=== PATIENT | female | born 1980 | race Caucasian/White ===

== ENCOUNTER 2021-04-08 19:36 | Emergency (ER) | payer OTHER, SELFPAY ==
--- NOTE | ~2021-04-08 | CT_ITS ---
EXAMINATION: CT abdomen pelvis wo con DATE: 04/08/2021 21:16 INDICATION: Left lower quadrant abdominal pain. TECHNIQUE: Computed tomography (CT) of the abdomen and pelvis was performed without intravenous contr ast. Automated exposure control and iterative reconstruction technique were employed. The dose-length product was 787.86 mGy-cm. COMPARISON: CT abdomen and pelvis 05/22/2016 FINDINGS: The visualized portions of the lung bases demonstrate minimal atelectasis with no pleural e ffusion. The heart size is normal. No pericardial effusion. The liver is normal. The changes of francisco cystectomy. The spleen, pancreas, adrenal glands, and kidneys are normal. There are no dilated loops of bowel. The appendix is normal. There are no pathologically enlarged lymph nodes. There is trace pe lvic ascites. There is a tampon in vagina. There is mild thoracolumbar spondylosis. IMPRESSION: 1. No etiology for the patient's symptoms. Reviewed, dictated and finalized at location A.
[2021-04-08 19:50] VITALS: BP 125/79; PULSE 62; RESP 20; TEMP 36.2; O2SAT 100
[2021-04-08] MEDS: DICYCLOMINE HCL 10 MG CAPSULE 20 MG PO (20:16)
[2021-04-08 20:29] LABS: Appearance Urine Clear (Clear); Basophils Absolute Auto 0.06 K/mm3 (0.00-0.10); Basophils Percent Auto 0.8 % (0.0-1.0); Bilirubin Urine Negative (Negative); Color Urine Yellow (Yellow); Eosinophils Absolute Auto 0.26 K/mm3 (0.02-0.50); Eosinophils Percent Auto 3.3 % (1.0-6.0); Glucose Urine UA Negative (Negative); Hematocrit 37.9 % (35.0-49.0); Hemoglobin 12.8 g/dL (12.0-15.0); Immature Granulocyte Absolute 0.02 K/mm3 (0.00-0.00); Immature Granulocyte Percent A 0.3 % (0.0-0.0); Ketones Urine Negative (Negative); Leukocyte Esterase Ur Negative (Negative); Lymphocytes Percent Auto 37.5 % (18.0-42.0); Mean Corpuscular HGB Conc 33.8 g/dL (32.0-36.0); Mean Corpuscular Volume 94.8 fL (78.0-102.0); Mean Platelet Volume 9.8 fl (9.2-11.8); Monocytes Absolute Auto 0.65 K/mm3 (0.10-0.90); Monocytes Percent Auto 8.1 % (2.0-11.0); Nitrate Urine Negative (Negative); Platelet Count Result 203 K/mm3 (150-420); Protein Urine Negative (Negative); Red Cell Distribution Width 11.9 % (11.6-14.4); Specific Grav Ur 1.015 (1.010-1.020); Urobilinogen Urine 0.2 mg/dL (0.2-1.0); pH Urine 6.5 (5.0-8.0)
[2021-04-08 20:32] LABS: Add Urine Microscopic? YES; Bacteria Urine None seen /hpf; Blood Urine Trace-Intact (Negative); RBC Urine None seen /hpf (0-2); Squamous Epithelial Cell Urine Few /hpf (Few); WBC Urine None seen /hpf (0-3)
[2021-04-08 20:40] LABS: Alanine Aminotransferase 28 U/L (14-59); Albumin Level 3.8 g/dL (3.4-5.0); Alkaline Phosphatase 67 U/L (46-116); Anion Gap 8 mmol/L (8-16); Aspartate Amino Transferase 16 U/L (15-37); Bilirubin,Total 0.3 mg/dL (0.00-1.00); Blood Urea Nitrogen 12 mg/dL (7-18); Calcium 8.8 mg/dL (8.5-10.1); Carbon Dioxide 29 mmol/L (21-32); Chloride 104 mmol/L (98-108); Estimated CRCL calculation 79 ml/min; Estimated Glomerular Filt Rate > 60; Glucose 109 mg/dL (70-99); Lipase 281 U/L (73-393); Osmolality Calculated 292 mOsm/kg (285-295); Potassium 3.4 mmol/L (3.5-5.1); Sodium 141 mmol/L (136-145); Total Protein 7.1 g/dL (6.4-8.2)
--- NOTE | 2021-04-08 20:57 | ED.ABDPAIN ---
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 This started last pm, and kept her awake in pain most of the night. Over the counter medications tried at home have not made her feel any better. Nothing has decreased the pain. MD elicited complaint: abdominal pain Pertinent past history: other (doxycycline use) Onset (ago): hour(s) Pain Consistency: constant Location: LLQ Severity: moderate Quality: stabbing Relieving factors: nothing Associated symptoms: denies other symptoms Treatments prior to arrival: NSAIDs Related Data Home Medications Medication Instructions Recorded Confirmed No Home Medications 04/08/21 04/08/21 Allergies Allergy/AdvReac Type Severity Reaction Status Date / Time No Known Allergies Allergy Unverified 05/24/20 15:12 Review of Systems Constitutional: Constitutional: Reports no additional constitutional complaints Eyes: Eyes: Reports no additional eye complaints ENT: Reports system reviewed and no additional complaints, except as documented Cardiovascular: Cardiovascular: Reports no additional cardiovascular complaints Respiratory: Respiratory: Reports no additional respiratory complaints Gastrointestinal: Gastrointestinal: Reports no additional gastrointestinal complaints Genitourinary: Genitourinary: Reports no additional female genitourinary complaints Musculoskeletal: Musculoskeletal: Reports no additional musculoskeletal complaints Integumentary/Breasts: Skin/Breast: Reports system reviewed and no additional complaints, except as docu Neurologic: Reports system reviewed and no additional complaints, except as documented Psychiatric: Psychiatric: Reports no additional psychiatric complaints Endocrine: Endocrine: Reports no additional endocrine complaints Hematologic/Lymphatic: Hematologic/Lymphatic: Reports no additional hematologic/lymphatic complaints Allergic/Immunologic: Allergic/Immunologic: Reports no additional allergic/immunologic complaints [facility] Past Medical History Medical History Decreased libido Diarrhea Dysthymic disorder Epigastric pain Epigastric pain Recurrent pancreatitis Surgical History Surgical History (Updated 04/08/21 @ 21:56 by Conor Espana MD) History of cholecystectomy Family History Family History (Updated 04/08/21 @ 22:01 by Conor Espana MD) Mother Hypertension Irritable bowel syndrome Father Malignant neoplasm of prostate Grandparent Family history of pancreatic cancer Family history of malignant neoplasm of bone Family history of macular degeneration Diabetes mellitus Social History Social History Smoking status: Former smoker Smoking end date: 12/01/10 Alcohol intake: current Exam Const: Orientation/consciousness: patient oriented x3 HENMT: Head: normal to inspection Ears: external ears normal and TM's normal bilaterally General nose exam: Normal external nose present and Normal nares present Mouth: Yes Normal oral and palatal mucosa present Throat: posterior oropharynx normal Eyes: Conjunctivae: conjunctivae normal Neck: Neck: normal visual inspection Chest: Chest palpation & inspection: normal inspection of the chest Resp: Effort & Inspection: normal respiratory effort Auscultation: clear to auscultation bilaterally Cardio: Rate: regular rate Rhythm: regular rhythm GI: GI Palp: Yes Soft to palpation (nontender, hyperactive bowel sounds) Back/Spine/Pelvis: Back: no CVA tenderness Skin: General skin exam: normal color Other: She has what appears to be a healing
[2021-04-08 20:58] LABS: Pregnancy On Board Control Positive; Urine Pregnancy Test Negative
[2021-04-08] MEDS: KETOROLAC (*BKC) 60 MG/2 ML VIAL IM (21:33)
[2021-04-08 21:47] VITALS: BP 126/74; PULSE 78; RESP 18; O2SAT 100
== END 2021-04-08 21:49 | disposition home or self-care (01) ==
PROVIDERS: Emergency Provider Emergency Medicine; PCP Internal Medicine
DX: R10.13 Epigastric pain (principal); R10.32 Left lower quadrant pain
CPT/HCPCS: 36415; 74176; 80053; 81001; 81025; 83690; 85025; 87086; 87088; 96372; 99283; 99284; A9270; J1885

== ENCOUNTER 2021-04-10 14:28 | Outpatient (CLI) | payer OTHER, SELFPAY ==
--- NOTE | ~2021-04-10 | US_ITS ---
EXAMINATION: US pelvic complete w TV EXAM DATE: 04/10/2021 16:00 INDICATION: Pelvic pain. TECHNIQUE: Pelvic transabdominal and transvaginal sonogram was performed. There are multiple graysca le and Doppler images available for interpretation. Correlation is made to CT 04/08/2021. FINDINGS: Uterus measures 7.6 x 4.5 x 5.5 cm, and is morphologically normal. Endometrial stripe radhika sures 4 mm, within normal limits. There is no free pelvic fluid. Right adnexa: The ovary measures 1.5 x 2.8 x 2.8 cm and is morphologically normal. Ovarian vascular f low confirmed. Left adnexa: The ovary measures 3.2 x 1.9 x 1.8 cm and is morphologically normal. Ovarian vascular fl ow confirmed. IMPRESSION: 1. Unremarkable pelvic ultrasound exam. Reviewed, dictated and finalized at location A.
== END 2021-04-10 14:29 | disposition home or self-care (01) ==
LOC: CHSIMG 14:29
PROVIDERS: PCP Internal Medicine; Visit Provider Nurse Practitioner Family
DX: R10.2 Pelvic and perineal pain (principal); R10.9 Unspecified abdominal pain
CPT/HCPCS: 76830; 76856

== ENCOUNTER 2021-04-17 12:31 | Outpatient (CLI) | payer OTHER, SELFPAY ==
--- NOTE | ~2021-04-17 | MM_ITS ---
EXAMINATION: MM screening jesus BI w marlyn HISTORY: Screening TECHNIQUE: Craniocaudal and mediolateral oblique 3-D tomosynthesis images were obtained and synthetic 2-D images were generated. CAD analysis was submitted and interpreted. COMPARISON: No prior mammogram is available for comparison at this institution. BREAST PARENCHYMAL COMPOSITION: The breasts are heterogenously dense, which may obscure small masses. FINDINGS: There is a focal asymmetry with possible architectural distortion in the upper outer quadra nt of the right breast. There are no suspicious masses, calcifications or architectural distortion in the left breast to suggest malignancy. IMPRESSION: 1. Focal right breast asymmetry with possible architectural distortion, upper outer quadrant. 2. Additional mammographic views and possible breast ultrasound are recommended. BI-RADS Category 0: Incomplete: Needs additional imaging evaluation. Reviewed, dictated and finalized at location A. IMPRESSION: 1. Focal right breast asymmetry with possible architectural distortion, upper o uter quadrant. 2. Additional mammographic views and possible breast ultrasound are recommended . BI-RADS Category 0: Incomplete: Needs additional imaging evaluation.
== END 2021-04-17 12:32 | disposition home or self-care (01) ==
LOC: CHSIMG 12:32
PROVIDERS: PCP Internal Medicine; Visit Provider Nurse Practitioner Family
DX: Z12.31 Encounter for screening mammogram for malignant neoplasm of breast (principal)
CPT/HCPCS: 77063; 77067

== ENCOUNTER 2021-04-20 13:42 | Outpatient (CLI) | payer OTHER, SELFPAY ==
--- NOTE | ~2021-04-20 | US_ITS ---
EXAMINATION: US thyroid EXAM DATE: 04/20/2021 14:09 INDICATION: Enlarged thyroid gland elevated glucose abdominal pain. TECHNIQUE: Multiple grayscale and Doppler images of the thyroid were obtained (by a technologist who performed the scan) and subsequently reviewed. Individual nodules and recommendations may be reporte d in accordance with TI-RADS system as designated by the 2017 ACR White Paper TI-RADS committee. The re is no prior study for comparison. FINDINGS: Right thyroid lobe measures 6.3 x 1.6 x 2.3 cm, the left measuring 5.5 x 1.3 x 1.6 cm. Mildly heterog eneous thyroid echogenicity with numerous small thyroid nodules. Largest right thyroid lobe nodule measures 1.1 x 1.5 x 1.3 cm , mixed cystic and solid (1 point), hyp oechoic (2 points), wider than tall, smooth well defined margin, artifactual echogenic regions along the edges of cystic components, category TR3 for this nodule. This category typically biopsied if th ey reach 2.5 cm. Multiple left thyroid lobe nodules measuring up to 10 x 6 x 9 mm which is mixed solid and cystic, als o category TR 3. There is another smaller left thyroid lobe 5 x 6 x 6 mm, solid (2 points), hypoechoi c (2 points), wider than tall, smooth well defined margin, containing macrocalcification(s) causing a coustic shadowing (1 point), category TR4 for this nodule. IMPRESSION: Multinodular goiter; recommend one-year follow-up thyroid ultrasound. Reviewed, dictated and finalized at location A. IMPRESSION: Multinodular goiter; recommend one-year follow-up thyroid ultrasoun d.
[2021-04-20 14:58] LABS: Alanine Aminotransferase 27 U/L (14-59); Albumin Level 3.8 g/dL (3.4-5.0); Alkaline Phosphatase 60 U/L (46-116); Anion Gap 5 mmol/L (8-16); Aspartate Amino Transferase 22 U/L (15-37); Bilirubin,Total 0.3 mg/dL (0.00-1.00); Blood Urea Nitrogen 11 mg/dL (7-18); Calcium 9.5 mg/dL (8.5-10.1); Carbon Dioxide 32 mmol/L (21-32); Chloride 103 mmol/L (98-108); Estimated Glomerular Filt Rate > 60; Free T3 2.82 pg/mL (2.18-3.98); Free T4 Free Thyroxine 0.88 ng/dL (0.76-1.46); Glucose 87 mg/dL (70-99); Osmolality Calculated 288 mOsm/kg (285-295); Potassium 4.3 mmol/L (3.5-5.1); Sodium 140 mmol/L (136-145); Thyroid Stimulating Hormone 1.46 uIU/mL (0.36-3.74); Total Protein 6.9 g/dL (6.4-8.2)
[2021-04-22 20:14] LABS: T4 Thyroxine 5.6 mcg/dL (5.1-11.9)
[2021-04-26 08:04] LABS: Total Triiodothyronine (T3) 93 ng/dL (76-181)
== END 2021-04-20 13:43 | disposition home or self-care (01) ==
LOC: CHSIMG 13:43
PROVIDERS: PCP Internal Medicine; Visit Provider Nurse Practitioner Family
DX: R92.8 Other abnormal and inconclusive findings on diagnostic imaging of breast (principal); E04.9 Nontoxic goiter, unspecified; R73.9 Hyperglycemia, unspecified; R10.9 Unspecified abdominal pain
CPT/HCPCS: 36415; 76536; 80053; 84436; 84439; 84443; 84480; 84481

== ENCOUNTER 2021-04-24 09:33 | Outpatient (CLI) | payer OTHER, SELFPAY ==
--- NOTE | ~2021-04-24 | MMUS_ITS ---
EXAMINATION: MM diagnostic mammo unilat RT, US breast RT limited HISTORY: Focal right breast mammographic asymmetry with possible architectural distortion described i n upper outer quadrant of right breast on 04/17/2021 screening mammogram TECHNIQUE: Additional 3-D tomosynthesis images of right breast were performed and synthetic 2-D image s were generated. CAD analysis was submitted and interpreted. High resolution upper outer quadrant ri ght breast ultrasound was performed. COMPARISON: 04/17/2021 bilateral digital screening mammogram FINDINGS: MAMMOGRAPHIC FINDINGS: No suspicious mass or architectural distortion is evident on these supplemental views. ULTRASOUND: No suspicious mass or architectural distortion is evident in the upper outer quadrant of the right br east. IMPRESSION: 1. No mammographic evidence of malignancy 2. Routine mammographic screening is recommended. BI-RADS Category 1: Negative Reviewed, dictated and finalized at location A. IMPRESSION: 1. No mammographic evidence of malignancy 2. Routine mammographic screening is recommended. BI-RADS Category 1: Negative
== END 2021-04-24 09:34 | disposition home or self-care (01) ==
PROVIDERS: PCP Internal Medicine; Visit Provider Internal Medicine
DX: R92.8 Other abnormal and inconclusive findings on diagnostic imaging of breast (principal)
CPT/HCPCS: 76642; 77065

== ENCOUNTER 2022-03-05 08:40 | Outpatient (CLI) | payer OTHER, SELFPAY ==
--- NOTE | ~2022-03-05 | CT_ITS ---
EXAMINATION: CT soft tissue neck w con DATE: 03/05/2022 09:34 INDICATION: Right neck swelling. TECHNIQUE: Computed tomography (CT) of the neck was performed with 75 mL Omnipaque-350 intravenous co ntrast. Automated exposure control and iterative reconstruction technique were employed. The dose-rajani gth product was 377.42 mGy-cm. COMPARISON: None FINDINGS: There are nodules in the thyroid measuring up to 5 mm, likely not clinically significant. T here is a skin marker at the right neck. There is no abnormal mass in this area. There are no patholo gically enlarged lymph nodes. The cervical carotid arteries are normal. There is mild cervical spondy losis. IMPRESSION: 1. No specific etiology for the patient's symptoms. Reviewed, dictated and finalized at location A.
== END 2022-03-05 08:41 | disposition home or self-care (01) ==
LOC: CHSIMG 08:42
PROVIDERS: PCP Internal Medicine; Visit Provider Nurse Practitioner Family
DX: R22.1 Localized swelling, mass and lump, neck (principal)
CPT/HCPCS: 70491; Q9967

== ENCOUNTER 2022-04-11 12:41 | Outpatient (CLI) | payer OTHER, SELFPAY ==
--- NOTE | ~2022-04-11 | US_ITS ---
EXAMINATION: US thyroid DATE: 04/11/2022 13:12 INDICATION: Multinodular goiter. TECHNIQUE: Multiple ultrasound images of the thyroid were obtained. COMPARISON: Thyroid ultrasound 04/20/2021 FINDINGS: The right thyroid lobe measures 6.1 x 2.0 x 2.0 cm. The left thyroid lobe measures 6.0 x 2.0 x 1.6 c m. In the right thyroid lobe, there is a 7 mm predominantly solid, hypoechoic, zzkmx-mlzh-[id number] nodul e with smooth margin without echogenic foci (TI-RADS TR4). In the left thyroid lobe, there is a 9 mm mixed cystic and solid, hypoechoic, vqfbz-yhqy-xnbz nodule with smooth margin without echogenic foci (TR3). There are multiple subcentimeter nodules in the thyroid. IMPRESSION: 1. Small thyroid nodules, likely not clinically significant. No follow-up is needed. Reviewed, dictated and finalized at location A. IMPRESSION: 1. Small thyroid nodules, likely not clinically significant. No follow-up is ne eded.
[2022-04-11 13:27] LABS: Free T4 Free Thyroxine 0.86 ng/dL (0.76-1.46); Thyroid Stimulating Hormone 1.83 uIU/mL (0.36-3.74)
== END 2022-04-11 12:42 | disposition home or self-care (01) ==
LOC: CHSIMG 12:44
PROVIDERS: PCP Internal Medicine
DX: E04.2 Nontoxic multinodular goiter (principal)
CPT/HCPCS: 36415; 76536; 84439; 84443; 84481

== ENCOUNTER 2023-01-30 07:36 | Outpatient (CLI) | payer OTHER, SELFPAY | END 2023-01-30 07:37 | disposition home or self-care (01) | LOC: CHSLAB 07:38 | PROVIDERS: PCP Internal Medicine; Visit Provider Nurse Practitioner Family | DX: R19.7 Diarrhea, unspecified (principal) | CPT/HCPCS: 87045; 87177; 87209; 87427 ==

== ENCOUNTER 2023-02-01 08:57 | Outpatient (CLI) | payer OTHER, SELFPAY ==
[2023-02-04 12:28] LABS: Rotavirus Stool Not Detected
== END 2023-02-01 08:58 | disposition home or self-care (01) ==
PROVIDERS: PCP Internal Medicine; Visit Provider Nurse Practitioner Family
DX: R10.0 Acute abdomen (principal)
CPT/HCPCS: 87324; 87425

== ENCOUNTER 2023-07-08 14:20 | Outpatient (CLI) | payer OTHER, SELFPAY ==
[2023-07-08 14:32] LABS: Basophils Absolute Auto 0.06 K/mm3 (0.00-0.10); Basophils Percent Auto 0.9 % (0.0-1.0); Eosinophils Absolute Auto 0.17 K/mm3 (0.02-0.50); Eosinophils Percent Auto 2.6 % (1.0-6.0); Hematocrit 38.1 % (35.0-49.0); Immature Granulocyte Absolute 0.02 K/mm3 (0.00-0.00); Immature Granulocyte Percent A 0.3 % (0.0-0.0); Lymphocytes Absolute Auto 2.12 K/mm3 (1.10-4.50); Lymphocytes Percent Auto 32.6 % (18.0-42.0); Mean Corpuscular HGB Conc 34.1 g/dL (32.0-36.0); Mean Corpuscular Hemoglobin 32.5 pg (27.0-31.0); Mean Corpuscular Volume 95.3 fL (78.0-102.0); Mean Platelet Volume 9.6 fl (9.2-11.8); Monocytes Absolute Auto 0.59 K/mm3 (0.10-0.90); Monocytes Percent Auto 9.1 % (2.0-11.0); Neutrophils Absolute Auto 3.6 K/mm3 (1.7-7.2); Neutrophils Percent Auto 54.5 % (50.0-70.0); Platelet Count Result 203 K/mm3 (150-420); Red Cell Distribution Width 11.8 % (11.6-14.4); White Blood Count 6.5 K/mm3 (4.8-10.8)
[2023-07-08 15:13] LABS: Alanine Aminotransferase 28 U/L (14-59); Alkaline Phosphatase 55 U/L (46-116); Anion Gap 6 mmol/L (8-16); Aspartate Amino Transferase 16 U/L (15-37); Bilirubin,Total 0.2 mg/dL (0.00-1.00); Blood Urea Nitrogen 12 mg/dL (7-18); Calcium 9.2 mg/dL (8.5-10.1); Carbon Dioxide 30 mmol/L (21-32); Chloride 105 mmol/L (98-108); Cholesterol 133 mg/dL (0-200); Estimated Glomerular Filt Rate > 60; Glucose 94 mg/dL (70-99); HDL Direct 51 mg/dL (40-60); LDL Cholesterol Calculated 68 mg/dL (<130); Lipase 81 U/L (16-77); Osmolality Calculated 291 mOsm/kg (285-295); Potassium 4.2 mmol/L (3.5-5.1); Sodium 141 mmol/L (136-145); Total Protein 6.9 g/dL (6.4-8.2); Triglycerides 71 mg/dL (0-150)
[2023-07-08 15:15] LABS: CRP < 0.5 mg/dL (0.0-0.9)
[2023-07-08 15:25] LABS: Thyroid Stimulating Hormone Reflex 1.04 u/IU/mL (0.36-3.74)
== END 2023-07-08 14:21 | disposition home or self-care (01) ==
LOC: CHSLAB 14:22
PROVIDERS: PCP Family Medicine; Visit Provider Family Medicine
DX: R10.9 Unspecified abdominal pain (principal); R10.13 Epigastric pain; E11.9 Type 2 diabetes mellitus without complications
CPT/HCPCS: 36415; 80053; 80061; 83690; 84443; 85025; 86140

== ENCOUNTER 2023-07-11 09:28 | Outpatient (CLI) | payer OTHER, SELFPAY ==
--- NOTE | ~2023-07-11 | XR_ITS ---
Cervical Spine: AP, lateral, open-mouth views Clinical History: Pain Findings: There is mild reversal of the normal cervical lordosis. The vertebral bodies and posterior elements appear intact. The intervertebral disc spaces are well maintained. Pre-vertebral soft tiss ues are unremarkable. Impression: Mild reversal of the normal cervical lordosis, otherwise unremarkable exam. Reviewed, dictated and finalized at location . Impression: Mild reversal of the normal cervical lordosis, otherwise unremarkable exam.
--- NOTE | ~2023-07-11 | XR_ITS ---
Thoracic spine: Clinical Indication: Back pain AP and lateral views were performed. No fracture is seen. There is normal alignment of the vertebrae. The intervertebral disc spaces appe ar normal. Paravertebral soft tissues appear normal. Impression: No significant abnormalities noted. Reviewed, dictated and finalized at [facility]. Impression: No significant abnormalities noted.
== END 2023-07-11 09:29 | disposition home or self-care (01) ==
LOC: CHSIMG 09:30
PROVIDERS: PCP Family Medicine; Visit Provider Family Medicine
DX: R10.13 Epigastric pain (principal); M54.12 Radiculopathy, cervical region; M53.82 Other specified dorsopathies, cervical region
CPT/HCPCS: 72040; 72072

== ENCOUNTER 2023-07-21 09:00 | Outpatient (RCR) | payer OTHER, SELFPAY ==
--- NOTE | 2023-07-21 10:03 | OPREHPOC ---
Outpatient Therapy Plan of Care This is a Multidisciplinary Plan of Care that may contain components documented by all disciplines (PT, OT, and ST.) PT Problem 1 PT Problem #1 Knowledge Deficit PT Goal 1 Goal Patient to demonstrate independence with HEP Target Visit 6 PT Problem 2 PT Problem #2 Pain PT Goal 1 Goal Patient to demontrate highest pain at 2/10 Target Visit 12 PT Problem 3 PT Problem #3 Impaired Strength PT Goal 1 Goal Patient to demonstrate UE strength to 5/5 to return to house hold tasks at PLOF Target Visit 12 PT Problem 4 PT Problem #4 Impaired Functional Mobil PT Goal 1 Goal 1. Patient to demonstrate ability to look over B shoulder to 70 deg with no reports of pain to return to driving at PLOF 2. Patient to score 10% improvement on Neck Disability Index
--- NOTE | 2023-07-21 10:03 | PTOPEVAL1 ---
Assessment and note entered by Alexandra Forbes DPT Evaluation Information Assessment Status Evaluation Diagnosis neck pain, radiculopathy Onset 07/08/23 Subjective Information Patient reports neck pain with tingling down B arms to fingers. Patient does not recall injury but reports it has been going on ~ 2 weeks. Patient reports neck pain is at base of skull. Patient reports difficulty with driving, using her phone and sitting for long periods of time. Priro to onset of pain patient was able to do above activities with no increase in pain. Reported Pain Level Pain Score 7: Self Report Assessment PT Clinical Summary Patient is a 43 year old female who presents to PT with neck pain with radicular pain to B UE. Patient demonstrates decreased B cervical mobility , impaired posture and positive B median and ulnar ULNT tests impairing her ability to drive, look at her phone and sit for long periods of time. Patient would benefit from skilled PT to address impairments and return to PLOF. Plan of Care Interventions Electrical Stimulation,Hot Pack/Cold Pack,Manual Therapy,Mechanical Traction,Neuro Re-education, Patient/Caregiver Educati,Therapeutic Activities, Therapeutic Exercise PT Services Indicated Yes Treatment Frequency and 3x weekly for 12 visits Duration These treatments will address the objective and functional deficits as defined above. The patient will be advanced safely and appropriately in order for the patient to progress towards his/her prior level of function. Additional exercises will be introduced and as well as a comprehensive home exercise program upon discharge, if needed, ?to ensure carryover of functional gains achieved in the clinic. This treatment plan has been reviewed and agreement upon by the patient.
--- NOTE | 2023-08-07 09:36 | OPREHPOC ---
Outpatient Therapy Plan of Care This is a Multidisciplinary Plan of Care that may contain components documented by all disciplines (PT, OT, and ST.) PT Problem 1 PT Problem #1 Knowledge Deficit PT Goal 1 Goal Patient to demonstrate independence with HEP Target Visit 6 Progress Met PT Problem 2 PT Problem #2 Pain PT Goal 1 Goal Patient to demontrate highest pain at 2/10 Target Visit 12 Progress Partially Met PT Problem 3 PT Problem #3 Impaired Strength PT Goal 1 Goal Patient to demonstrate UE strength to 5/5 to return to house hold tasks at PLOF Target Visit 12 Progress Partially Met PT Problem 4 PT Problem #4 Impaired Functional Mobil PT Goal 1 Goal 1. Patient to demonstrate ability to look over B shoulder to 70 deg with no reports of pain to return to driving at PLOF 2. Patient to score 10% improvement on Neck Disability Index Progress Partially Met
--- NOTE | 2023-08-07 09:37 | PTOPPROG ---
Assessment and note entered by JT File, PT Evaluation Information Assessment Status Progress Diagnosis neck pain, radiculopathy Onset 07/08/23 Subjective Information patient reports she feels alright today. she reports she continues to have symptoms in the bilateral UE's, but reports feeling improved since starting therapy. she reports the pain still radiates into the hands of the bilateral UE's with cervical rotation and sidebending (especially to the L). Assessment PT Clinical Summary mrs. khan presents to skilled PT for her 8th skilled therapy visit. she presents today with lower pain at rest, but increased symptoms still with cervical rotation/looking over shoulders. she continues to present with signs and symptoms indicating a cervical radiculopathy from the lower cervical spine. she would benefit from continued skilled PT to continue to progress her objective/ functional performance and return to prior level functional activities and quality of life. she has met HEP goals, and is making progress towards all other goals thus far in skilled PT. Plan of Care Interventions Electrical Stimulation,Hot Pack/Cold Pack,Manual Therapy,Mechanical Traction,Neuro Re-education, Patient/Caregiver Educati,Therapeutic Activities, Therapeutic Exercise PT Services Indicated Yes Treatment Frequency and continue skilled PT 2x weekly for 4 more visits. Duration These treatments will address the objective and functional deficits as defined above. The patient will be advanced safely and appropriately in order for the patient to progress towards his/her prior level of function. Additional exercises will be introduced and as well as a comprehensive home exercise program upon discharge, if needed, ?to ensure carryover of functional gains achieved in the clinic. This treatment plan has been reviewed and agreement upon by the patient.
== END 2023-08-21 18:26 | disposition home or self-care (01) ==
LOC: CHSPT 09:00
PROVIDERS: PCP Family Medicine; Visit Provider Family Medicine
DX: M54.12 Radiculopathy, cervical region (principal)
CPT/HCPCS: 97012; 97014; 97110; 97140; 97161; G0283

== ENCOUNTER 2023-12-04 09:01 | Outpatient (CLI) | payer OTHER, SELFPAY ==
--- NOTE | ~2023-12-04 | MR_ITS ---
MRI of the cervical spine Clinical History: Ectopic the Technique: Axial T2-weighted and gradient images, and sagittal T1-weighted, T2-weighted, and STIR sherry ges were acquired. Findings: There is no fracture or subluxation of the cervical spine. Vertebral bodies maintain normal height and alignment. No suspicious bone marrow signal abnormality seen. At C2-C3, there is no disc bulge or herniation. No spinal canal stenosis, cord compression, or neural foraminal narrowing. At C3-C4, there is no significant disc bulge or herniation. No spinal canal stenosis, cord compressio n or neural foraminal narrowing. At C4-C5, there is no disc bulge or herniation. No spinal canal stenosis, cord compression or neural foraminal narrowing. At C5-C6, there is central disc protrusion/disc osteophyte complex. There is mild canal stenosis with out reinaldo cord compression. There is probable bilateral neural foraminal narrowing, right worse than left. At C6-C7, there is minimal disc osteophyte complex. No spinal canal stenosis or cord compression. Maureen ral foramina are preserved. No abnormal signal seen in the spinal cord. Paravertebral soft tissues are unremarkable. Impression: Mild degenerative spondylosis, as above. Reviewed, dictated and finalized at location . 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
== END 2023-12-04 09:02 | disposition home or self-care (01) ==
LOC: CHSIMG 09:03
PROVIDERS: PCP Family Medicine; Visit Provider Family Medicine
DX: M54.12 Radiculopathy, cervical region (principal); M43.02 Spondylolysis, cervical region
CPT/HCPCS: 72141

== ENCOUNTER 2024-01-13 11:37 | Outpatient (CLI) | payer OTHER, SELFPAY ==
[2024-01-13 12:01] LABS: Basophils Absolute Auto 0.02 K/mm3 (0.00-0.10); Basophils Percent Auto 0.3 % (0.0-1.0); Eosinophils Absolute Auto 0.18 K/mm3 (0.02-0.50); Eosinophils Percent Auto 2.6 % (1.0-6.0); Hematocrit 40.2 % (35.0-49.0); Hemoglobin 13.5 g/dL (12.0-15.0); Immature Granulocyte Absolute 0.02 K/mm3 (0.00-0.00); Immature Granulocyte Percent A 0.3 % (0.0-0.0); Lymphocytes Percent Auto 37.1 % (18.0-42.0); Mean Corpuscular HGB Conc 33.6 g/dL (32.0-36.0); Mean Corpuscular Hemoglobin 30.8 pg (27.0-31.0); Mean Corpuscular Volume 91.6 fL (78.0-102.0); Mean Platelet Volume 9.6 fl (9.2-11.8); Monocytes Absolute Auto 0.63 K/mm3 (0.10-0.90); Neutrophils Absolute Auto 3.6 K/mm3 (1.7-7.2); Neutrophils Percent Auto 50.7 % (50.0-70.0); Platelet Count Result 210 K/mm3 (150-420); Red Blood Count 4.39 M/mm3 (4.20-5.40); Red Cell Distribution Width 12.4 % (11.6-14.4)
[2024-01-13 13:39] LABS: Alanine Aminotransferase 35 U/L (14-59); Albumin Level 3.7 g/dL (3.4-5.0); Alkaline Phosphatase 51 U/L (46-116); Anion Gap 10 mmol/L (8-16); Aspartate Amino Transferase 23 U/L (15-37); Bilirubin,Total 0.4 mg/dL (0.00-1.00); Blood Urea Nitrogen 10 mg/dL (7-18); Carbon Dioxide 28 mmol/L (21-32); Chloride 102 mmol/L (98-108); Estimated Glomerular Filt Rate > 60; Glucose 102 mg/dL (70-99); Lipase 115 U/L (16-77); Osmolality Calculated 289 mOsm/kg (285-295); Sodium 140 mmol/L (136-145); Total Protein 6.9 g/dL (6.4-8.2)
[2024-01-13 13:43] LABS: CRP < 0.5 mg/dL (0.0-0.9)
== END 2024-01-13 11:38 | disposition home or self-care (01) ==
LOC: CHSLAB 11:38
PROVIDERS: PCP Family Medicine; Visit Provider Family Medicine
DX: R10.9 Unspecified abdominal pain (principal); K85.90 Acute pancreatitis without necrosis or infection, unspecified
CPT/HCPCS: 36415; 80053; 83690; 85025; 86140

== ENCOUNTER 2024-02-26 09:52 | Outpatient (CLI) | payer OTHER, SELFPAY ==
--- NOTE | 2024-02-26 10:15 | PC.NURSE ---
Here for OP fluids and medications from Dr Driver office,
[2024-02-26 10:16] LABS: Basophils Absolute Auto 0.02 K/mm3 (0.00-0.10); Basophils Percent Auto 0.3 % (0.0-1.0); Eosinophils Absolute Auto 0.03 K/mm3 (0.02-0.50); Eosinophils Percent Auto 0.4 % (1.0-6.0); Hematocrit 45.2 % (35.0-49.0); Immature Granulocyte Absolute 0.02 K/mm3 (0.00-0.00); Immature Granulocyte Percent A 0.3 % (0.0-0.0); Lymphocytes Absolute Auto 0.73 K/mm3 (1.10-4.50); Lymphocytes Percent Auto 10.4 % (18.0-42.0); Mean Corpuscular HGB Conc 33.2 g/dL (32-36); Mean Corpuscular Hemoglobin 30.7 pg (27.0-31.0); Mean Corpuscular Volume 92.4 fL (78.0-102.0); Mean Platelet Volume 9.2 fl (9.2-11.8); Monocytes Absolute Auto 0.52 K/mm3 (0.10-0.90); Monocytes Percent Auto 7.4 % (2.0-11.0); Neutrophils Absolute Auto 5.71 K/mm3 (1.70-7.20); Neutrophils Percent Auto 81.2 % (50.0-70.0); Platelet Count Result 199 K/mm3 (150-420); Red Blood Count 4.89 M/mm3 (4.20-5.40)
[2024-02-26 10:29] VITALS: BMI 24.5
[2024-02-26 10:44] VITALS: BP 117/76; PULSE 82; RESP 18; TEMP 35.9; O2SAT 96
[2024-02-26 10:45] LABS: Alanine Aminotransferase 34 U/L (14-59); Albumin Level 4.2 g/dL (3.4-5.0); Alkaline Phosphatase 49 U/L (46-116); Anion Gap 9 mmol/L (4-12); Aspartate Amino Transferase 23 U/L (15-37); Bilirubin,Total 0.5 mg/dL (0.00-1.00); Blood Urea Nitrogen 14 mg/dL (7-18); CRP 3.4 mg/dL (0.0-0.9); Calcium 9.1 mg/dL (8.5-10.1); Carbon Dioxide 29 mmol/L (21-32); Chloride 102 mmol/L (98-108); Estimated CRCL calculation 88 ml/min; Estimated Glomerular Filt Rate > 60; Glucose 109 mg/dL (70-99); Lipase 28 U/L (16-77); Osmolality Calculated 291 mOsm/kg (285-295); Potassium 3.7 mmol/L (3.5-5.1); Sodium 140 mmol/L (136-145); Total Protein 7.4 g/dL (6.4-8.2)
[2024-02-26] MEDS: SODIUM CHLORIDE 0.9% IV 1,000 ML 999 ML IVPB (10:56)
[2024-02-26] MEDS: DICYCLOMINE HCL INJ 20 MG/2 ML VIAL IM (11:00)
[2024-02-26] MEDS: ONDANSETRON INJ 4 MG/2 ML VIAL IV PUSH (11:01)
--- NOTE | 2024-02-26 11:16 | PC.NURSE ---
tolerating infusion well, no vomiting since arrival
--- NOTE | 2024-02-26 12:15 | PC.NURSE ---
feeling a little better, discharged ambulatory, no n/v, tolerated ice chips while infusing ran
== END 2024-02-26 09:53 | disposition home or self-care (01) ==
PROVIDERS: PCP Family Medicine; Visit Provider Family Medicine
DX: R11.2 Nausea with vomiting, unspecified (principal); K85.90 Acute pancreatitis without necrosis or infection, unspecified; R10.9 Unspecified abdominal pain
CPT/HCPCS: 36415; 80053; 83690; 85025; 86140; 96360; 96361; 96372; 96374; J0500; J2405; J7030

== ENCOUNTER 2024-06-26 08:23 | Outpatient (CLI) | payer OTHER, SELFPAY ==
--- NOTE | ~2024-06-26 | MR_ITS ---
EXAMINATION: MR brain IAC wo con DATE: 06/26/2024 09:36 INDICATION: Migraine headache. Dizziness. TECHNIQUE: Magnetic resonance imaging (MRI) of the brain, brainstem, and internal auditory canals was performed without intravenous contrast. COMPARISON: Neck CT 03/05/2022 FINDINGS: There is no intracranial hemorrhage, acute infarction, or abnormal intracranial mass lesion . The ventricles are normal in size. Cavum septum callosum and vergae are noted. The paranasal sinuse s are clear. The orbits are normal. The internal auditory canals, inner ears, and tympanic cavities a re normal. The mastoid air cells are normal. IMPRESSION: 1. Normal brain. Reviewed, dictated and finalized at location E. IMPRESSION: 1. Normal brain.
== END 2024-06-26 08:24 | disposition home or self-care (01) ==
LOC: CHSIMG 08:24
PROVIDERS: PCP Family Medicine; Visit Provider Nurse Practitioner Family
DX: G89.29 Other chronic pain (principal); R51.9 Headache, unspecified
CPT/HCPCS: 70551

== ENCOUNTER 2024-08-09 09:35 | Observation (INO) | payer OTHER, SELFPAY ==
--- NOTE | ~2024-08-09 | CT_ITS ---
CT abdomen pelvis w con Ordering provider: Wilfredo Grier DO History: 44 years Female with . abdominal pain-RLQ X1DAY,H/O DIARRHEA-IBS,LMP CURRENT . Comparison: None. Technique: CT abdomen and pelvis with IV and without oral contrast. Automated exposure control and it erative reconstruction technique were employed. The dose-length product was 427.86 mGy-cm. Findings: VISUALIZED LOWER CHEST: Normal. UPPER ABDOMINAL ORGANS: Liver: Normal. Gallbladder: Status post cholecystectomy. Spleen: Normal. Stomach/duodenum: Normal. Pancreas: Slightly prominent pancreatic duct. Adrenals: Normal. Kidneys: Normal. PELVIC ORGANS: The bladder is underfilled. Follicles are seen in the right and left ovary. BOWEL AND MESENTERY: Colon: No evidence of diverticulitis. Normal appendix. Small Bowel: Normal. No obstruction. Peritoneum/mesentery: No free air or free fluid. No mesenteric lymphadenopathy. RETROPERITONEUM: Normal aorta. No retroperitoneal lymphadenopathy. MUSCULOSKELETAL: Superficial soft tissues: The superficial soft tissues are normal. Bones: Normal spine. IMPRESSION: 1. No acute abdominal process with no evidence of appendicitis, diverticulitis or intestinal obstruc tion. 2. Bilateral ovarian follicles with the largest on the right side measures 1.5 cm. Reviewed, dictated and finalized at location A. IMPRESSION: 1. No acute abdominal process with no evidence of appendicitis, diverticulitis or intestinal obstruction. 2. Bilateral ovarian follicles with the largest on the right side measures 1.5 cm.
[2024-08-09 09:38] VITALS: BP 140/88; PULSE 101; RESP 20; TEMP 36.5; O2SAT 100
--- NOTE | 2024-08-09 09:44 | ED.GENADULT ---
HPI - General Adult General Chief complaint: Abdominal Pain Stated complaint: abd pain History of Present Illness HPI narrative: Ronda is a 44M with PMH of chronic headaches, HANG, GERD that presented to the ED with abdominal pain. It started last night and is getting worse. It is a lower and right lower quadrant pain worse with movement and she has had minor nausea. No vomiting. She has had diarrhea but no worse than usual. Related Data Home Medications Medication Instructions Recorded Confirmed No Home Medications 08/09/24 08/09/24 Allergies Allergy/AdvReac Type Severity Reaction Status Date / Time prochlorperazine Allergy Mild twitching Verified 08/09/24 09:58 [From Compazine] Review of Systems Review of Systems: All systems reviewed & are unremarkable except as noted in HPI and below PMFSH Past Medical History Medical History Decreased libido Diarrhea Dysthymic disorder Epigastric pain Epigastric pain Recurrent pancreatitis Surgical History Surgical History History of cholecystectomy Family History Family History Mother Hypertension Irritable bowel syndrome Father Malignant neoplasm of prostate Grandparent Family history of pancreatic cancer Family history of malignant neoplasm of bone Family history of macular degeneration Diabetes mellitus Social History Social History (Updated 07/08/23 @ 13:31 by Shirley Pittman) Smoking status: Never smoker Smoking end date: 12/01/10 Alcohol intake: never Substance use: never Do You Feel Safe in your Home?: Yes Lack of Transportation: No Lack of Food: Never True Current Housing: I Have Housing Concerned About Future Housing: No Difficulty Paying Gas/Electric Bills: No Difficulty Paying for Meds: No Currently Unemployed: No Education: Bachelor's Degree Difficulty w/ Childcare or Family Care: No Spiritual care concerns: No Exam Const: General: cooperative, healthy appearing, comfortable, no acute distress, well developed, alert, awake and Physically active Orientation/consciousness: oriented to person, oriented to place and oriented to time HENMT: Head: normal to inspection, normocephalic and atraumatic Ears: hearing grossly normal bilaterally and external ears normal Face/Nose/Sinus: Normal external nose present Eyes: General: appearance normal, both eyes and all related structures Periorbital: periorbital findings normal Sclera: sclerae normal Pupils: Equal, round and reactive pupils present Neck: Neck: normal visual inspection Chest: Chest palpation & inspection: normal inspection of the chest Resp: Effort & Inspection: normal respiratory effort, able to speak in complete sentences and no respiratory distress Auscultation: clear to auscultation bilaterally Cardio: Jugular venous distension: no JVD Rate: regular rate Rhythm: regular rhythm GI: Inspection: normal to inspection GI Palp: Yes Soft to palpation Auscultation: normal bowel sounds Other: +TTP in the lower abdomen and RLQ. +Guarding and rebound tenderness. Skin: General skin exam: normal color and no rashes or lesions noted Neuro: General: oriented to person, oriented to place and oriented to time Cranial nerves: Yes Equal, round and reactive pupils present Extrem: General: normal to inspection Course Course Emergency Course: -ordered fluids, morphine and zofran Labs showed an elevated lipase but were otherwise normal. CT abdomen pelvis w con Ordering provider: Wilfredo Grier DO History: 44 years Female with . abdominal pain-RLQ X1DAY,H/O DIARRHEA-IBS,LMP CURRENT . Comparison: None. Technique: CT abdomen and pelvis with IV and without oral contrast. Automated exposure control and iterative reconstruction technique were employed. The dose-length product was
[2024-08-09 09:55] LABS: Basophils Absolute Auto 0.05 K/mm3 (0.00-0.10); Basophils Percent Auto 0.7 % (0.0-1.0); Eosinophils Absolute Auto 0.16 K/mm3 (0.02-0.50); Eosinophils Percent Auto 2.1 % (1.0-6.0); Hematocrit 40.3 % (35.0-49.0); Hemoglobin 13.7 g/dL (12.0-15.0); Immature Granulocyte Absolute 0.02 K/mm3 (0.00-0.00); Immature Granulocyte Percent A 0.3 % (0.0-0.0); Lymphocytes Absolute Auto 1.91 K/mm3 (1.10-4.50); Lymphocytes Percent Auto 25.1 % (18.0-42.0); Mean Corpuscular Hemoglobin 31.6 pg (27.0-31.0); Mean Corpuscular Volume 92.9 fL (78.0-102.0); Mean Platelet Volume 9.3 fl (9.2-11.8); Monocytes Absolute Auto 0.72 K/mm3 (0.10-0.90); Monocytes Percent Auto 9.5 % (2.0-11.0); Neutrophils Absolute Auto 4.74 K/mm3 (1.70-7.20); Neutrophils Percent Auto 62.3 % (50.0-70.0); Platelet Count Result 223 K/mm3 (150-420); Red Blood Count 4.34 M/mm3 (4.20-5.40); Red Cell Distribution Width 11.7 % (11.6-14.4); White Blood Count 7.6 K/mm3 (4.8-10.8)
[2024-08-09] MEDS: MORPHINE SULFATE (*CRX) 4 MG/ML INJ IV PUSH (10:08)
[2024-08-09] MEDS: ONDANSETRON INJ 4 MG/2 ML VIAL IV PUSH ×3 (10:08→23:08)
[2024-08-09] MEDS: LACTATED RINGERS 1,000 ML 999 ML IV CONT (10:09)
[2024-08-09 10:13] LABS: Pregnancy On Board Control Positive; Urine Pregnancy Test Negative
[2024-08-09 10:14] LABS: Appearance Urine Clear (Clear); Bilirubin Urine Negative (Negative); Blood Urine 4+ (Negative); Color Urine Yellow (Yellow); Glucose Urine UA Negative (Negative); Ketones Urine Negative (Negative); Nitrate Urine Negative (Negative); Protein Urine Negative (Negative); Specific Grav Ur 1.005 (1.010-1.020); pH Urine 6.5 (5.0-8.0)
[2024-08-09 10:15] LABS: Add Urine Microscopic? YES; Bacteria Urine Trace /hpf; Leukocyte Esterase Ur Negative LEU/UL (Negative); Squamous Epithelial Cell Urine Rare /hpf (Few); Urobilinogen Urine Normal mg/dL (0.2-1.0); WBC Urine None seen /hpf (0-3)
[2024-08-09 10:18] LABS: Prothrombin Time 10.7 Seconds (9.64-11.0)
--- NOTE | 2024-08-09 10:40 | PC.NURSE ---
Pt resting in stretcher. Call light with in reach.
[2024-08-09] MEDS: LACTATED RINGERS 1,000 ML 100 ML IV CONT (10:56)
[2024-08-09 10:59] LABS: Alanine Aminotransferase 14 U/L (14-59); Alkaline Phosphatase 50 U/L (46-116); Anion Gap 9 mmol/L (4-12); Aspartate Amino Transferase 16 U/L (15-37); Bilirubin,Total 0.8 mg/dL (0.00-1.00); Blood Urea Nitrogen 11 mg/dL (7-18); Carbon Dioxide 27 mmol/L (21-32); Chloride 102 mmol/L (98-108); Estimated CRCL calculation 73 ml/min; Estimated Glomerular Filt Rate > 60; Glucose 103 mg/dL (70-99); Lipase 217 U/L (16-77); Osmolality Calculated 285 mOsm/kg (285-295); Potassium 3.1 mmol/L (3.5-5.1); Sodium 138 mmol/L (136-145); Total Protein 7.2 g/dL (6.4-8.2)
[2024-08-09 11:00] LABS: Troponin I < 4.0 ng/L (0.00-60.4)
[2024-08-09 11:01] LABS: Lactic Acid Reflex 1.1 mmol/L (0.4-2.0)
[2024-08-09] MEDS: HYDROmorphone HCL INJ (*CRX) 2 MG/ML VIAL 0.5 MG IV PUSH (11:04)
[2024-08-09] MEDS: DICYCLOMINE HCL INJ 20 MG/2 ML VIAL IM (11:26)
--- NOTE | 2024-08-09 12:01 | PC.NURSE ---
Pt returned from CT. IV restarted. Gave her warm blanket.
--- NOTE | 2024-08-09 13:16 | PC.NURSE ---
Pt resting comfortably in stretcher. No needs at this time.
[2024-08-09 13:39] VITALS: BMI 25.9
--- NOTE | 2024-08-09 13:45 | ADMGEN ---
This patient, Ronda Nunez, was admitted to 2nd Floor Room 203-1. Patient/family oriented to hospital policies and general routines including ID bracelet, bed and alarms, visiting hours, pain management, procedures, bathroom and other care routines, personal items, smoking policy, room service/diet, and visiting hours. Information on how to activate the Rapid Response Team has been discussed. Patient/Family are encouraged to report perceived risks to care and to ask questions if they do not understand what they are told or what they should do.
[2024-08-09] MEDS: MORPHINE SULFATE (*CRX) 2 MG/ML INJ IV PUSH ×2 (15:14→21:33)
[2024-08-09 16:00] VITALS: BP 122/83; PULSE 68; RESP 18; TEMP 36.1; O2SAT 99
[2024-08-09 20:00] VITALS: PULSE 68; RESP 18; O2SAT 99
[2024-08-10] VITALS: BP 135/82; PULSE 98; RESP 17; TEMP 36.2; O2SAT 100
[2024-08-10] MEDS: ACETAMINOPHEN 325 MG TABLET 650 MG PO (04:49)
[2024-08-10 05:29] LABS: Basophils Absolute Auto 0.04 K/mm3 (0.00-0.10); Basophils Percent Auto 0.5 % (0.0-1.0); Eosinophils Absolute Auto 0.12 K/mm3 (0.02-0.50); Eosinophils Percent Auto 1.4 % (1.0-6.0); Hematocrit 37.9 % (35.0-49.0); Hemoglobin 12.8 g/dL (12.0-15.0); Immature Granulocyte Absolute 0.01 K/mm3 (0.00-0.00); Immature Granulocyte Percent A 0.1 % (0.0-0.0); Lymphocytes Absolute Auto 2.29 K/mm3 (1.10-4.50); Mean Corpuscular HGB Conc 33.8 g/dL (32-36); Mean Corpuscular Hemoglobin 31.2 pg (27.0-31.0); Mean Corpuscular Volume 92.4 fL (78.0-102.0); Mean Platelet Volume 9.5 fl (9.2-11.8); Monocytes Absolute Auto 0.64 K/mm3 (0.10-0.90); Monocytes Percent Auto 7.5 % (2.0-11.0); Neutrophils Absolute Auto 5.38 K/mm3 (1.70-7.20); Neutrophils Percent Auto 63.5 % (50.0-70.0); Platelet Count Result 210 K/mm3 (150-420); Red Cell Distribution Width 11.6 % (11.6-14.4); White Blood Count 8.5 K/mm3 (4.8-10.8)
[2024-08-10 05:44] LABS: Alanine Aminotransferase 46 U/L (14-59); Albumin Level 3.6 g/dL (3.4-5.0); Alkaline Phosphatase 58 U/L (46-116); Anion Gap 8 mmol/L (4-12); Aspartate Amino Transferase 35 U/L (15-37); Bilirubin,Total 0.7 mg/dL (0.00-1.00); Blood Urea Nitrogen 9 mg/dL (7-18); Calcium 8.8 mg/dL (8.5-10.1); Carbon Dioxide 29 mmol/L (21-32); Chloride 104 mmol/L (98-108); Estimated CRCL calculation 82 ml/min; Estimated Glomerular Filt Rate > 60; Glucose 89 mg/dL (70-99); Lipase 32 U/L (16-77); Osmolality Calculated 289 mOsm/kg (285-295); Potassium 3.8 mmol/L (3.5-5.1); Sodium 141 mmol/L (136-145); Total Protein 6.6 g/dL (6.4-8.2)
[2024-08-10 08:00] VITALS: BP 118/82; PULSE 76; RESP 18; TEMP 36.3; O2SAT 98
[2024-08-10] MEDS: ONDANSETRON INJ 4 MG/2 ML VIAL IV PUSH (10:45)
--- NOTE | 2024-08-10 11:11 | PM.SD2 ---
Same Day Admit/Disch: HPI History of Present Illness Chief complaint: PANCREATITIS OVARIAN CYST Narrative: Ronda Nunez is a 44 year old female PI narrative: This nice young woman comes in with complaints of moderately severe to severe sharp, stabbing abdominal pain, some in epigastric area, but more severe in LLQ. This started last pm, and kept her awake in pain most of the night. Over the counter medications tried at home have not made her feel any better. Nothing has decreased the pain. MD elicited complaint: abdominal pain PMFSH Past Medical History Medical History Decreased libido Diarrhea Dysthymic disorder Epigastric pain Epigastric pain Recurrent pancreatitis Surgical History Surgical History History of cholecystectomy Family History Family History Mother Hypertension Irritable bowel syndrome Father Malignant neoplasm of prostate Grandparent Family history of pancreatic cancer Family history of malignant neoplasm of bone Family history of macular degeneration Diabetes mellitus Social History Social History Smoking status: Never smoker Smoking end date: 12/01/10 Alcohol intake: never Substance use: never Do You Feel Safe in your Home?: Yes Lack of Transportation: No Lack of Food: Never True Current Housing: I Have Housing Concerned About Future Housing: No Difficulty Paying Gas/Electric Bills: No Difficulty Paying for Meds: No Currently Unemployed: No Education: Bachelor's Degree Difficulty w/ Childcare or Family Care: No Spiritual care concerns: No Same Day Admit/Disch: Med Pre-admit Medications Home Medications Medication Instructions Recorded Confirmed Type ibuprofen 800 mg tablet 800 mg PO TID PRN pain #20 tabs 08/10/24 Rx Review of Systems Review of Systems abdominal pain, nauese, All systems reviewed & are unremarkable except as noted in HPI and below Exam Const: General: cooperative, healthy appearing and comfortable HENMT: Head: normal to inspection Ears: hearing grossly normal bilaterally Face/Nose/Sinus: Normal external nose present and Normal nares present Face and sinus: normal facial exam Mouth: Yes Normal oral and palatal mucosa present, Yes lip normal, Yes tongue normal and Yes other Eyes: General: appearance normal, both eyes and all related structures Pupils: Equal, round and reactive pupils present Neck: Neck: normal visual inspection, full ROM and no lymphadenopathy Chest: Chest palpation & inspection: normal inspection of the chest Resp: Effort & Inspection: normal respiratory effort and able to speak in complete sentences Auscultation: clear to auscultation bilaterally GI: Inspection: normal to inspection GI Palp: Yes abdominal tenderness (minimal tenderness mostly resolved) Neuro: General: oriented to person, oriented to place, oriented to time, patient oriented x3 and gait normal Cognition (Neuro): normal cognition Speech: normal speech Gait exam (Neuro): Normal gait present Sensory Exam: normal sensation Extrem: General: normal to inspection, full ROM, capillary refill normal, normal exam except as noted and no pedal edema Right upper extremity: normal to inspection, full ROM and normal capillary refill Left upper extremity: normal to inspection, full ROM and normal capillary refill Psych: Mental Status: mental status grossly normal Speech and movement: Clear speech present Affect: normal affect Attitude: cooperative Thought process: Normal thought process present DS: Data Data Completed and Pending Labs on day of discharge: Labs from last 24 hours 08/10/24 05:10 WBC 8.5 RBC 4.10 L Hgb 12.8 Hct 37.9 MCV 92.4 MCH 31.2 H MCHC 33.8 RDW 11.6 Plt Count 210 MPV
--- NOTE | 2024-08-10 14:46 | PC.NURSE ---
1420claims she is not n/v at this time. 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 wants to go home and relax there. encouraged to follow up with primary and ob. dc to personal auto.
--- NOTE | 2024-08-12 09:17 | PC.NURSE ---
Discharge call back complete, to see OB provider tomorrow for continued pain from ovarian cyst, doing ok otherwise, no n/v
== END 2024-08-10 14:20 | disposition home or self-care (01) ==
LOC: CHSED 13:11 → CHS2ND 13:54
PROVIDERS: Nurse Practitioner Acute Care; Admitting Provider Internal Medicine; Emergency Provider Family Medicine; PCP Family Medicine; Visit Provider Internal Medicine
DX: K85.90 Acute pancreatitis without necrosis or infection, unspecified (principal); N83.202 Unspecified ovarian cyst, left side; N83.201 Unspecified ovarian cyst, right side
CPT/HCPCS: 36415; 74177; 80053; 81001; 81025; 83605; 83690; 84484; 85025; 85610; 96361; 96372; 96374; 96375; 96376; 99285; A9270; G0378; G0379; J0500; J1170; J2270; J2405; J7120; Q9967

== ENCOUNTER 2024-12-08 11:31 | Outpatient (CLI) | payer OTHER, SELFPAY ==
--- NOTE | ~2024-12-08 | US_ITS ---
EXAMINATION: US soft tissue head and neck DATE: 12/08/2024 12:43 INDICATION: Dysphasia TECHNIQUE: Multiple ultrasound images of the thyroid were obtained. COMPARISON: 04/11/2022 FINDINGS: The right thyroid lobe measures 5.5 x 2.3 x 1.6 cm. Multiple nodules are identified within the right lobe of the thyroid gland. The largest and most suspicious is described below: Within the upper pole of the right lobe of the thyroid gland is a 10 x 10 x 10 mm nodule: Composition - spongiform Echogenicity -hyperechoic or isoechoic (1) Shape - wider than tall Margin - smooth Echogenic foci - none. = TR1: benign, no FNA The left thyroid lobe measures 5.2 x 2.1 x 1.7 cm. Multiple nodules are identified within the left lobe of the thyroid gland. The largest and most suspicious is described below: Within the upper pole of the left lobe of the thyroid gland is a 14 x 12 x 10 mm nodule: Composition - spongiform Echogenicity -hyperechoic or isoechoic (1) Shape - wider than tall Margin - smooth Echogenic foci - none. = TR1: Benign, and no FNA Bulky calcified focus within the left lobe of the thyroid gland, without discrete nodular features me asuring 4.7 mm in greatest dimension. The isthmus measures 0.6cm in anterior to posterior dimension. There is otherwise normal echogenicity throughout the remainder of thyroid gland. Normal vascular flow is present. IMPRESSION: TR 1 nodules detected bilaterally for which no FNA and no follow-up is necessary. Reviewed, dictated and finalized at location A. USEMENT MACHINE MECHANIC IMPRESSION: TR 1 nodules detected bilaterally for which no FNA and no follow-up is necessar yKatlyn
[2024-12-08 12:18] LABS: Basophils Absolute Auto 0.07 K/mm3 (0.00-0.10); Basophils Percent Auto 0.9 % (0.0-1.0); Eosinophils Absolute Auto 0.11 K/mm3 (0.02-0.50); Eosinophils Percent Auto 1.5 % (1.0-6.0); Hematocrit 41.1 % (35.0-49.0); Hemoglobin 13.8 g/dL (12.0-15.0); Immature Granulocyte Absolute 0.02 K/mm3 (0.00-0.00); Immature Granulocyte Percent A 0.3 % (0.0-0.0); Lymphocytes Absolute Auto 1.98 K/mm3 (1.10-4.50); Lymphocytes Percent Auto 26.2 % (18.0-42.0); Mean Corpuscular HGB Conc 33.6 g/dL (32-36); Mean Corpuscular Hemoglobin 30.9 pg (27.0-31.0); Mean Corpuscular Volume 91.9 fL (78.0-102.0); Mean Platelet Volume 9.2 fl (9.2-11.8); Monocytes Percent Auto 9.3 % (2.0-11.0); Neutrophils Absolute Auto 4.68 K/mm3 (1.70-7.20); Neutrophils Percent Auto 61.8 % (50.0-70.0); Platelet Count Result 224 K/mm3 (150-420); Red Blood Count 4.47 M/mm3 (4.20-5.40); Red Cell Distribution Width 11.9 % (11.6-14.4); White Blood Count 7.6 K/mm3 (4.8-10.8)
[2024-12-08 12:48] LABS: Alanine Aminotransferase 25 U/L (14-59); Albumin Level 4.2 g/dL (3.4-5.0); Alkaline Phosphatase 61 U/L (46-116); Anion Gap 9 mmol/L (4-12); Aspartate Amino Transferase 13 U/L (15-37); Bilirubin,Total 0.4 mg/dL (0.00-1.00); Blood Urea Nitrogen 14 mg/dL (7-18); Calcium 9.6 mg/dL (8.5-10.1); Carbon Dioxide 26 mmol/L (21-32); Chloride 105 mmol/L (98-108); Estimated Glomerular Filt Rate > 60; Glucose 98 mg/dL (70-99); Osmolality Calculated 290 mOsm/kg (285-295); Potassium 4.6 mmol/L (3.5-5.1); Sodium 140 mmol/L (136-145); Total Protein 7.2 g/dL (6.4-8.2)
[2024-12-08 12:55] LABS: CRP < 0.5 mg/dL (0.0-0.9)
== END 2024-12-08 11:32 | disposition home or self-care (01) ==
PROVIDERS: PCP Family Medicine; Visit Provider Family Medicine
DX: R59.0 Localized enlarged lymph nodes (principal); E04.1 Nontoxic single thyroid nodule
CPT/HCPCS: 36415; 76536; 80053; 85025; 86140

== ENCOUNTER 2025-02-03 13:27 | Outpatient (CLI) | payer OTHER, SELFPAY ==
--- NOTE | ~2025-02-03 | XR_ITS ---
EXAMINATION: XR barium swallow modified DATE: 02/03/2025 14:16 INDICATION: Dysphagia, unspecified. TECHNIQUE: The patient was given barium-containing material of multiple consistencies to swallow by t holly speech pathologist while I performed fluoroscopy. Fluoroscopy exposure time was 0.8 minutes. The n umber of fluoroscopy images saved to the PACS was 1. Dose-area product was 0.826 Gy-cm^2. FINDINGS: The oral stage, pharyngeal stage, and cervical/esophageal stage of the swallow are normal. IMPRESSION: 1. Normal modified barium swallow. 2. Please refer to the speech therapy report for recommendations. Reviewed, dictated and finalized at location A. ALT ROLLER PERSON
--- OUTSIDE RECORDS SUMMARY | 2025-02-03 14:52 | XMS_ITS | Referral Summary ---
Author Organization [facility] Address [address] [place] [address] Care Team Providers Care Reproduction Order Processor Name Role Phone Wilfredo Grierrish Primary Care Provider Encounters Date Type Department Care Team Description 01/01/2025 Patient Self-Triage [facility] HealthCare/ Physicians [facility] [place] [address] Mychart, Generic Provider from Last 3 Months Allergies Active Allergy Reactions Criticality Noted Date Comments Prochlorperazine Nausea And Vomiting Medium 08/11/2013 Also facial twitching Medications multivit kyxjvjry-yvbf-B A-calcium (THERA-M) 9 mg iron-400 mcg tabletIndicatio ns:Vitamin Deficiency Prevention Take 1 tablet by mouth daily Active zinc sulfate 50 mg zinc (220 mg) tablet Take 1 tablet (220 mg total) by mouth daily Active dicyclomine (BENTYL) 20 mg tablet Take 1 tablet (20 mg total) by mouth every 6 (six) hours as needed (Pain) 20 tablet 3 Active Additional Information Patient not taking.Reported on 08/08/2023 LORazepam (ATIVAN) 1 mg tablet TAKE 1 TABLET BY MOUTH ONCE DAILY NEEDED FOR ANXIETY 4 Active ibuprofen (ADVIL,MOTRIN) 800 mg tablet 4 Active Active Problems Problem Noted Date Diagnosed Date Abdominal pain 01/27/2023 Multiple thyroid nodules 04/23/2022 Abnormal Pap smear of cervix 03/18/2018 Overview (03/20/2018): 01/2017- LGSIL-->colpo GARRET I during (no bx) 01/2018- ASC-H, HPV16+-->GARRET I, ECC insufficient 07/2019-repeat cotesting and ECC Calculus of bile duct 01/24/2017 Resolved Problems Problem Noted Date Diagnosed Date Resolved Date Confirm cardiac activi ty using ultrasound 05/27/2017 05/27/2017 Encounter for supervision of normal , antepartum 05/27/2017 01/27/2018 Overview (12/12/2017): -EDC 01/07/18 by LMP/7wk sono -Labs: O+/RI/HIVneg -Pap: 01/2017 LGSIL, Colpo GARRET I-repeat in 1 year/PP -Aneuploidy testing: NIPT low risk (female) -Anatomy ultrasound: normal anatomy. Posterior placenta. Girl -GCT: 94 on 09/23 -Tdap: Declines -GBS: negative -Contraception: -Peds: FP physician in [place] -: [place] -Flu: Declines Advanced maternal age, primi in first trimester, antepartum 05/27/2017 01/27/2018 Overview (07/22/2017): -Counseled regarding risk of aneuploidy -NIPT low risk -Anatomy sono: Herpes simplex virus (HSV) infection 05/26/2010 05/27/2017 Immunizations Immunization Administration Dates Next Due PPD TEST, UNSPECIFIED 05/24/2010 Social History Tobacco Use Types Packs/Day Years Used Date Smoking Tobacco: Never Tobacco Cessation:Counseling Given: Not Answered Alcohol Use Standard Drinks/Week Comments No 0 (1 standard drink = 0.6 oz pur e alcohol) AUDIT-C Answer Date Recorded Q1: How often do you have a drink containing alc ohol? Never 06/21/2021 Average Number of Drinks Not on file 021 Q3: How often do you have si x or more drinks on one occasion? 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 Not on file Not on file Not on file Last Filed Vital Signs Vital Sign Reading Time Taken Comments Blood Pressure 108/78 08/13/2024 10:41 AM CDT Pulse 74 01/27/2023 11:30 PM UNLOADING CHECKER Temperature 36.5 C (97.7 F) 01/27/2023 7:33 PM UNLOADING CHECKER Respiratory Rate 18 01/27/2023 7:33 PM UNLOADING CHECKER Oxygen Saturation 97% 01/27/2023 11:30 PM UNLOADING CHECKER Inhaled Oxygen Concentration - - Weight 75.3 kg (166 lb) 08/13/2024 10:41 AM CDT Height 170.2 cm (5' 7 ) 08/13/2024 10:41 AM CDT Body Mass Index 26 08/13/2024 10:41 AM CDT Plan of Treatment Not on file Procedures Procedure Name Priority Date/Time Associated Diagnosis Comments SCREENING MAMMOGRAM BILATERAL W ANJEL Schedule Routine, Read Routine (OP Routine) 08/13/2024 9:06 AM CDT Screening mammogram, encounter for PAP AND HIGH RISK HPV, REFLEX TO GENOTYPING Routine 08/08/2023 10:33 AM CDT Encounter for well woman exam with routine gynecological exam Hx of abnormal cervical Pap smear HEPATITIS C ANTIBODY Routine 05/28/2017 2:04 PM CDT Encounter for screening from Last 3 Months or Most Recently Relevant to Health Maintenance Results * Screening Mammogram Bilateral W Anjel (08/13/2024 9:06 AM CDT) Anatomical Region Laterality Modality Breast Bilateral Mammography Narrative 08/13/2024 9:24 AM CDT Examination: Screening Mammogram Bilateral W Anjel: 08/13/24 Clinical: Screening mammogram, encounter for. Prior Study Comparisons: Comparison was made to the prior available relevant studies at the time of interpretation. Findings: Screening Mammogram Bilateral W Anjel Bilateral No significant masses, malignant type calcifications, skin thickening, nipple retraction, or significant lymphadenopathy is noted in either breast. Computer Aided Detection was utilized for the interpretation of this study. There are scattered areas of fibroglandular density. The patient will be notified of results by letter. Impression: BI-RADS ATLAS category (overall): 2 - Benign There is no mammographic evidence of malignancy. Routine Screening Mammogram in 1 Yr is recommended for bilateral Overall Assessment: 2 - Benign us Self Screening Mammogram IMG MAMMO PROCEDURES Fi nal Result * Pap and High Risk HPV and Genotyping (Cytology Component) (08/08/2023 10:33 AM CDT) Thin prep (Pap test) 08/08/2023 10:33 AM CDT 08/12/2023 10:50 AM CDT Narrative PATHOLOGY [facility] - 08/18/2023 1:01 PM CDT [facility] results best viewed via link to PDF [address] [address] Tele: Mara Mckeon MD - Security Systems Technician CYTOLOGY REPORT Note to Patients: This report may contain a detailed description of human tissue sent by a health care provider to the laboratory for pathologic evaluation. The content of this report is essential for diagnosis and may provide important critical findings. This information may be unfamiliar to patients to review without a medical professional present. It is advised that the patient review this report in the presence of a health care provider who can answer questions and explain the details. Patient Name: RONDA NUNEZ Address: [address] [place] [address]- Gender: F : 1980 (Age: 43) Service: Location: [facility] : [id number] [facility] #: [id number] Patient Type: [facility] SPECIMEN Taken: 08/08/2023 Reported: 08/18/2023 Physician(s): Jenny Garces M.D. FINAL DIAGNOSIS: SOURCE OF SPECIMEN - ThinPrep Pap and HPV w/ reflex Genotyping: STATEMENT OF ADEQUACY Source: Cervical/Endocervical - Satisfactory for interpretation - Endocervical /Transformation Zone component present - Case screened using computer assisted imaging technology GENERAL CATEGORIZATION: - Negative for intraepithelial lesion or malignancy jxm/08/18/2023 13:01REGAN Tapia (ASCP) Report Reviewed and Electronically Signed By REGAN Tapia (ASCP)Clerical Data Follow A; G0145 DIAGNOSIS COMMENT: Ancillary Testing: HPV Genotype 16 - Not Detected Reference Range: Not Detected HPV Genotype 18 - Not Detected Reference Range: Not Detected HPV High Risk Group (31, 33, 35, 39, 45, 51, 52, 56, 58, 59, 66 and 68) - Not Detected Reference Range: Not Detected This test was performed using the SHAKEEL 4800 CLINICAL DIAGNOSIS AND HISTORY Last Menstrual Period: N/A REPORT IMAGES AND/OR SCANNED DOCUMENTS ONLY VIEWABLE IN PDF FORMAT The Pap test is a screening test used to aid in the detection of cervical cancer and its precursors. It should not be the sole means by which malignant and premalignant lesions are diagnosed. Both false negative and false positive results may occur. It also has poor sensitivity for the detection of endometrial lesions and should not be used to evaluate suspected endometrial abnormalities. For these reasons it is most important to obtain Pap tests at regular intervals, as recommended by your physician or nurse practitioner. Jenny Garces MD LAB CYTOLOGY ORDERABLE S Final Result PATHOLOGY [facility] Laboratory Receiving [address] [place], [place] [id number] * Hepatitis C antibody (05/28/2017 2:04 PM CDT) Hep C Ab <0.1 0.0 - 0.9 s/co ratio [facility] - 01 Comment: Negative: < 0.8 Indeterminate: 0.8 - 0.9 Positive: > 0.9 The CDC recommends that a positive HCV antibody result be followed up with a HCV Nucleic Acid Amplification test ([id number]). Blood specimen (specimen) 05/28/2017 2:04 PM CDT 05/28/2017 Narrative [facility] - 05/30/2017 2:06 AM CDT Performed at: [facility] [id number] [employer] Cadet: Catalino Fleming PhD, Phone: [phone] Jenny Garces MD LAB MICROBIOLOGY - GEN ERAL ORDERABLES Final Result [facility] - 01 from Last 3 Months or Most Recently Relevant to Health Maintenance Insurance [facility] Member Subscriber Plan / Payer (Ef fective 2021-Present) Name:NunezJohn nolanfouzia Yarbrough Relation to Subscriber:Self Name:John Nunezfouzia Yarbrough Payer ID:[id number] (NAIC) Group ID:Not on file Type:MEDICAID RISK OTHER Address: [address] [place], [place] [id number] [place] [address] [place] [address] [facility] Care Teams Reproduction Order Processor Relationship Specialty Start Date End Date Wilfredo Grier DO [address] [place] [address] PCP - General Family Medicine 07/19/24
--- OUTSIDE RECORDS SUMMARY | 2025-02-03 14:52 | XMS_ITS | Encounter Summary ---
Author Organization [facility] Address [address] [place] [address] Care Team Providers Care Estimator And Drafter Supervisor Name Role Phone Ria Garnica MD Primary Care Pro vider Encounter Details Date Type Department Care Team (Late st Contact Info) Description 05/25/2008 Outpatient Historical HIS IMG-LAB [facility] Abiodun Owen MD [address] 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
--- OUTSIDE RECORDS SUMMARY | 2025-02-03 14:52 | XMS_ITS | Clinical Summary ---
Author Organization [employer] [facility] Address [address] [place] [address] Phone Care Team Providers Care Teacher Home Therapy Name Role Phone Ria Garnica MD Primary Care Pro vider Allergies Active Allergy Reactions Criticality Noted Date Comments Prochlorperazine Nausea and Vomiting Medium 08/11/2013 Also facial twitching Medications pantoprazole (PROTONIX) 40 mg Tablet, Delayed Release (E.C.) Take 1 Tablet (40 mg) by mouth daily. 30 Tablet 2 08/30/2019 Active sucralfate (CARAFATE) 1 gram tablet Take 1 Tablet (1 Gram) by mouth 4 times daily before meals and at bedtime. 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 Viral meningitis 05/26/2010 Immunizations Immunization Administration Dates Next Due Skin Test TB 05/24/2010 Family History Medical History Relation Name Comments Pancreatic Cancer Maternal Grandmother dx in 70s Colon Cancer Neg Hx Relation Name Status Comments Maternal Grandmother Social History Tobacco Use Types Packs/Day Years Used Date Smoking Tobacco: Former Cigarettes Smokeless Tobacco: Never Alcohol Use Standard Drinks/Week Comments No 0 (1 standard drink = 0.6 oz pur e alcohol) occassional Comments No Sex and Gender Information Value Date Recorded Sex Assigned at Not on file 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 Gender Identity Not on file Sexual Orientation Not on file Occupation Industry Job Start Date Job End Date Not on file Not on file Not on file Not on file Last Filed Vital Signs Vital Sign Reading Time Taken Comments Blood Pressure 105/71 10/08/2019 11:36 AM PCAT INSTRUCTOR Pulse 73 10/08/2019 11:36 AM PCAT INSTRUCTOR Temperature 36.3 C (97.4 F) 10/08/2019 11:25 AM PCAT INSTRUCTOR Respiratory Rate 22 10/08/2019 11:36 AM PCAT INSTRUCTOR Oxygen Saturation 98% 10/08/2019 11:36 AM PCAT INSTRUCTOR Inhaled Oxygen Concentration - - Weight 82.2 kg (181 lb 3.2 oz) 10/08/2019 10:07 AM PCAT INSTRUCTOR Height 170.2 cm (5' 7 ) 10/08/2019 10:07 AM PCAT INSTRUCTOR Body Mass Index 28.38 10/08/2019 10:07 AM PCAT INSTRUCTOR Plan of Treatment Health Maintenance Due Date Last Done Comments DTAP/TDAP/TD VACCINES (1 - Tdap) 2000 HEPATITIS B VACCINES (1 of 3 - 19+ 3-dose series) 2000 CERVICAL CANCER SCREENING 2011 BREAST CANCER SCREENING 2021 INFLUENZA VACCINE (#1) 2024 HPV VACCINES Aged Out No longer eligi ble based on patient's age to complete this topic Insurance [place]ICAID [place] Advance Directives For more information, please contact: [phone] * Full Code (Latest Code Status on File) Date Activated Date Inactivated Comments 08/09/2013 9:47 PM 08/11/2013 4:12 PM * Full Code Date Activated Date Inactivated Comments 08/09/2013 7:29 PM 08/09/2013 9:47 PM * Full Code Date Activated Date Inactivated Comments 05/24/2010 12:12 PM 05/27/2010 2:13 PM Care Teams Teacher Home Therapy Relationship Specialty Start Date End Date Ria Garnica MD PCP - General Family Practice 08/05/19
--- OUTSIDE RECORDS SUMMARY | 2025-02-03 14:52 | XMS_ITS | Encounter Summary ---
Author Organization [facility] Address 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 Gender Identity Not on file Sexual Orientation Not on file documented as of this encounter Plan of Treatment Not on file documented as of this encounter Procedures Procedure Name Priority Date/Time Associated Diagnosis Comments POC , URINE Routine 05/11/2008 12:56 PM CDT POC URINALYSIS DIPSTICK NON AUTOMATED Routine 05/11/2008 12:56 PM CDT CBC WITH DIFFERENTIAL Stat 05/11/2008 12:35 PM CDT COMPREHENSIVE METABOLIC PANEL Stat 05/11/2008 12:35 PM CDT documented in this encounter Results * POC , URINE (05/11/2008 12:56 PM CDT) , URINE POC Negative Negative [facility] SPECIFIC GRAVITY UA 1.010 1.001 - 1.035 [facility] Urine specimen (specimen) 05/11/2008 12:56 PM CDT 05/11/2008 12:56 PM CDT us Authorized P Er POINT OF CARE TESTING Final Resu lt Performing Organization Address [facility]/ZIP Co de Phone Number [facility] CLIA# [id number] [address] [place] [address] * POC URINALYSIS DIPSTICK (05/11/2008 12:56 PM CDT) CLARITY UA Clear [facility] PROTEIN UA Negative Negative [facility] BLOOD UA Negative Negative [facility] LEUKOCYTE ESTERASE UA Negative Negative [facility] UROBILINOGEN UA Normal Normal [facility] SPECIFIC GRAVITY UA 1.010 1.001 - 1.030 [facility] GLUCOSE UA Negative Negative [facility] COLOR UA Yellow [facility] BILIRUBIN UA Negative Negative [facility] NITRITE UA Negative Negative [facility] PH UA 5.0 5.0 - 8.0 [facility] KETONES UA Negative Negative [facility] Urine specimen (specimen) 05/11/2008 12:56 PM CDT 05/11/2008 12:56 PM CDT us Authorized P Er POINT OF CARE TESTING Final Resu lt Performing Organization Address [facility]/ZIP Co de Phone Number [facility] CLIA# [id number] [address] [place] [address] * COMPREHENSIVE METABOLIC PANEL (05/11/2008 12:35 PM CDT) CREATININE 0.77 0.51 - 0.95 mg/dL [facility] ALT 11 0 - 31 U/L [facility] SODIUM 138 135 - 145 mmol/L [facility] ALKALINE PHOSPHATASE 48 35 - 104 U/L [facility] CO2 24 22 - 30 mmol/L [facility] BILIRUBIN TOTAL 0.4 0.2 - 1.0 mg/dL [facility] POTASSIUM 3.5 3.5 - 4.9 mmol/L [facility] TOTAL PROTEIN 7.0 6.3 - 8.6 g/dL [facility] GLUCOSE 86 65 - 99 mg/dL [facility] AST 18 12 - 32 U/L [facility] BUN 7 6 - 20 mg/dL [facility] CALCIUM 8.6 8.4 - 10.2 mg/dL [facility] ALBUMIN 4.4 3.4 - 4.8 g/dL [facility] CHLORIDE 104 96 - 108 mmol/L [facility] GFR, >60 >=60 mL/min/1.7 sq meter [facility] GFR >60 >=60 mL/min/1.7 sq meter [facility] Comment: Modification of Diet in Renal Disease (MDRD) study formula. Estimated GFR rate interpretative information for both Americans and non- Americans is available on the [facility] Intranet at: [email or web address] Select: Lab Policies and Procedures Select: Reference Ranges - GFR Blood specimen (specimen) 05/11/2008 12:35 PM CDT 05/11/2008 12:50 PM CDT us Authorized P Er CHEMISTRY ORDERABLES Edited [facility] CLIA# [id number] [address], [place] [address] * CBC WITH DIFFERENTIAL (05/11/2008 12:35 PM CDT) RDW 12.0 11.5 - 14.5 % [facility] MCV 93.5 82.0 - 99.0 fL [facility] RBC 4.48 3.90 - 4.90 M/uL [facility] MCH 32.1 27.2 - 32.6 pg [facility] HEMOGLOBIN 14.4 11.8 - 14.8 g/dL [facility] RDW-STDEV 40.8 37.1 - 48.7 fL [facility] PLATELETS 178 140 - 350 K/uL [facility] MCHC 34.4 31.5 - 35.5 % [facility] HEMATOCRIT 41.9 35.5 - 44.0 % [facility] WBC 8.1 4.0 - 9.8 K/uL [facility] MPV 10.6 9.3 - 12.4 fL [facility] MONOCYTES 9 3 - 13 % [facility] MONOCYTE ABSOLUTE 0.71 0.10 - 1.30 K/uL [facility] NEUTROPHILS 58 45 - 70 % [facility] NEUTROPHIL ABSOLUTE 4.71 1.90 - 7.00 K/uL [facility] EOSINOPHILS 3 0 - 7 % [facility] EOSINOPHIL ABSOLUTE 0.20 0.00 - 0.70 K/uL [facility] LYMPHOCYTES 30 16 - 45 % [facility] LYMPHOCYTE ABSOLUTE 2.40 0.70 - 4.50 K/uL [facility] BASOPHILS 1 0 - 2 % [facility] BASOPHILS ABSOLUTE 0.05 0.00 - 0.20 K/uL [facility] Blood specimen (specimen) 05/11/2008 12:35 PM CDT 05/11/2008 12:50 PM CDT us Authorized P Er HEMATOLOGY ORDERABLES Edited [facility] CLIA# [id number] [address] [place] [address] documented in this encounter Visit Diagnoses Not on filedocumented in this encounter Care Teams Pre Sales Technical Engineer Relationship Specialty Start Date End Date Ria Garnica MD PCP - General Family Practice 08/05/19 documented as of this encounter
--- OUTSIDE RECORDS SUMMARY | 2025-02-03 14:52 | XMS_ITS | Encounter Summary ---
Author Organization [facility] Address [address] [place] [address] Care Team Providers Care Research Professor Of Biostatistics Name Role Phone Ria Garnica MD Primary Care Pro vider Encounter Details Date Type Department Care Team (Late st Contact Info) Description 06/01/2008 Outpatient Historical [facility] IMG[facility] Abiodun Owen MD 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 Gender Identity Not on file Sexual Orientation Not on file documented as of this encounter Plan of Treatment Not on file documented as of this encounter Procedures Procedure Name Priority Date/Time Associated Diagnosis Comments US PELVIS + TRANSVAG NON OB Routine 06/01/2008 3:10 PM CDT documented in this encounter Results * US PELVIS + TRANSVAG NON OB (06/01/2008 3:10 PM CDT) Anatomical Region Laterality Modality Pelvis Other 06/01/2008 3:10 PM CDT Narrative 06/01/2008 3:29 PM CDT [address] [address] Admit Date: 06/01/2008 RONDA CAMACHO Sex: F Admit Prov: ABIODUN OWEN Date: 1980 Primary Care Prov: ABIODUN OWEN CMRN: [id number] Room: [facility]: [id number] IMAGING SERVICES Ordering Prov: N/A Accession Number: [id number] Interpretation EXAMINATION: ULTRASOUND OF THE PELVIS Clinical History: Pain Findings: Transabdominal examination demonstrates normal size uterus which measures 8.6 x 3.1 cm x 4.8 cm. Additional findings will be described at ultrasound endovaginal study. EXAMINATION: ULTRASOUND ENDOVAGINAL STUDY Clinical History: Pain Findings: Transabdominal and endovaginal images demonstrate normal sized uterus without evidence of distinct fibroid. Endometrium is sonographically normal and measures 9 mm. The ovaries are normal in size. Left ovary measures 3.0 x 2.2 x 2.6 cm. The right ovary measures 3.5 x 1.6 x 1.5 cm. No free pelvic fluid is present. Both ovaries contain anechoic graafian follicles. Impression: Sonographically normal uterus and ovaries. . Dictated by: Everette BOYD 06/01/2008 15:26 Electronically signed by: Everette BOYD 06/01/2008 15:28 Procedure Note Provider, Historical - 06/01/[address] [address] Admit Date: 06/01/2008 RONDA CAMACHO Sex: F Admit Prov: ABIODUN OWEN Date: 1980 Primary Care Prov: ABIODUN OWEN CMRN: [id number] Room: [facility]: [phone] IMAGING SERVICES Ordering Prov: N/A Interpretation EXAMINATION: ULTRASOUND OF THE PELVIS Clinical History: Pain Findings: Transabdominal examination demonstrates normal size uteruswhich measures 8.6 x 3.1 cm x 4.8 cm. Additional findings will be describedat ultrasound endovaginal study. EXAMINATION: ULTRASOUND ENDOVAGINAL STUDY Clinical History: Pain Findings: Transabdominal and endovaginal images demonstrate normalsized uterus without evidence of distinct fibroid. Endometrium issonographically normal and measures 9 mm. The ovaries are normal in size. Left ovary measures 3.0 x 2.2 x 2.6cm. The right ovary measures 3.5 x 1.6 x 1.5 cm. No free pelvic fluid ispresent. Both ovaries contain anechoic graafian follicles. Impression: Sonographically normal uterus and ovaries. . Dictated by: Everette BOYD 06/01/2008 15:26 Electronically signed by: Everette BOYD 06/01/2008 15:28 Abiodun Owen MD ORDERABLES Final Result documented in this encounter Visit Diagnoses Diagnosis Unspecified symptom associated with female genital organs documented in this encounter Care Teams Research Professor Of Biostatistics Relationship Specialty Start Date End Date Ria Garnica MD PCP - General Family Practice 08/05/19 documented as of this encounter
--- OUTSIDE RECORDS SUMMARY | 2025-02-03 14:52 | XMS_ITS | Clinical Summary ---
Author Organization [facility] Address [address] [place] [address] Care Team Providers Care Caisson Worker Name Role Phone Cherrie Wilfredo Ulrichrish Primary Care Provider Allergies Active Allergy Reactions Criticality Noted Date Comments Prochlorperazine Nausea And Vomiting Medium 08/11/2013 Also facial twitching Medications multivit zvgkkxcy-zjgz-C A-calcium (THERA-M) 9 mg iron-400 mcg tabletIndicatio [...] Herpes simplex virus (HSV) infection 05/26/2010 05/27/2017 Encounters Date Type Department Care Team Description 01/01/2025 Patient Self-Triage [facility] HealthCare/ Physicians [address] [place] [address] Mychart, Generic Provider from Last 3 Months Immunizations Immunization Administration Dates Next Due PPD TEST, UNSPECIFIED 05/24/2010 Surgical History Surgery Date Site/Laterality Comments CHOLECYSTECTOMY 12/01/2015 - 11/30/2016 Medical History Medical History Date Comments HPV (human papilloma virus) infection 2017 Anxiety 2020 Meningitis Viral meningitis 2005 & 2010 Family History Medical History Relation Name Comments spindel cell cancer Father Bladder Cancer Mother Mom Cancer Mother Mom Kidney disease Mother Mom Breast cancer Neg Hx Colon cancer Neg Hx Deep vein thrombosis Neg Hx Learning disabilities Neg Hx Mental retardation Neg Hx Miscarriages / Stillbirths Neg Hx Ovarian cancer Neg Hx Thrombophilia Neg Hx Relation Name Status Comments Father Mother Mom Social History Tobacco Use Types Packs/Day Years [...] on file Legal Sex 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 Gender Identity Not on file Sexual Orientation Not on file 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 Not on file Not on file Not on file Obstetrics History Para Term AB IAB SAB Ectopic Multiple Livin g Live Births 1 1 Date Outcome GA Total Labor Labor//3rd Weight Sex Type Anes PTL Ina A1 A5 Name Clin 12/24 Term 38w 0d 2.977 kg (6 lb 9 oz) Vag-S pont Living Kaur Betts Last Filed Vital Signs Vital Sign Reading Time Taken Comments Blood Pressure 108/78 08/13/2024 10:41 AM CDT Pulse 74 01/27/2023 11:30 PM COMPANY DRIVER Temperature 36.5 C (97.7 F) 01/27/2023 7:33 PM COMPANY DRIVER Respiratory Rate 18 01/27/2023 7:33 PM COMPANY DRIVER Oxygen Saturation 97% 01/27/2023 11:30 PM COMPANY DRIVER Inhaled Oxygen Concentration - - Weight 75.3 kg (166 lb) 08/13/2024 10:41 AM CDT Height 170.2 cm (5' 7 ) 08/13/2024 10:41 AM CDT Body Mass Index 26 08/13/2024 10:41 AM CDT Plan of Treatment Health Maintenance Due Date Last Done Comments Depression Screening 1981 DTaP/Tdap/Td Vaccine (1 - Tdap) 1992 Varicella Vaccines (1 of 2 - 13+ 2-dose series) 1994 Hepatitis B Screening 1999 Influenza Vaccine (#1) 2024 Cervical Cancer Screening 08/08/20242022, 08/08/2023, 08/07/2022 Breast Cancer Screening-Mammogram 08/13/2025 08/13/2024, 07/28/2023, 08/07/2022 Regular Well Visit/Exam 18-64 08/13/2025, 08/08/2023, 08/07/2022 Hepatitis C Screening Completed 05/28/2017 HPV Vaccines Aged Out No longer eligi ble based on patient's age to complete this topic Pneumococcal vaccine <65 Aged Out No longer eligible based on patient's age to complete this topic Procedures Procedure Name Priority Date/Time Associated Diagnosis [...] CDT 08/12/2023 10:50 AM CDT Narrative PATHOLOGY [facility] - 08/18/2023 1:01 PM CDT EPIC results best viewed via link to PDF [address] [address] Tele: Mara Mckeon MD - Campaign Consultant CYTOLOGY REPORT Note to Patients: This report [...] the details. Patient Name: RONDA NUNEZ Address: [address] [place] [address]- Gender: F : 1980 (Age: 43) Service: Location: N : [id number] Hospital #: [id number] Patient Type: [facility] SPECIMEN Taken: 08/08/2023 Reported: [...] recommended by your physician or nurse practitioner. us Jenny Garces MD LAB CYTOLOGY ORDERABLE S Final Result PATHOLOGY [facility] Laboratory Receiving [address] [place] [address] * Hepatitis C antibody (05/28/2017 2:04 PM CDT) Hep C Ab <0.1 0.0 - 0.9 s/co ratio [facility] - 01 Comment: Negative: < 0.8 Indeterminate: 0.8 - 0.9 Positive: > 0.9 The CDC recommends that a positive HCV antibody result be followed up with a HCV Nucleic Acid Amplification test (764450). Blood specimen (specimen) 05/28/2017 2:04 PM CDT 05/28/2017 Narrative [facility] - 05/30/2017 2:06 AM CDT Performed at: Lab[address] [id number] Property Insurance Claims Examiner: Catalino Fleming PhD, Phone: [phone] us Jenny Garces MD LAB MICROBIOLOGY - GEN ERAL ORDERABLES Final Result Performing Organization Address City/State/[facility] Co de Phone Number [facility] - 01 from Last 3 Months or Most Recently Relevant to Health Maintenance Insurance [facility] [employer] Care Teams Caisson Worker Relationship Specialty Start Date End Date Wilfredo Grier DO [address] [place] [address] PCP - General Family Medicine 07/19/24
--- OUTSIDE RECORDS SUMMARY | 2025-02-03 14:52 | XMS_ITS | Encounter Summary ---
Author Organization [facility] Address [address] [place] [address] Phone Care Team Providers Care Sustainable Design Coordinator Name Role Phone Trey Araiza MD Primary Care Provider [phone] Shady Solis MD Primary Care Provider [phone] Wilfredo Grier DO Primary Care Provider Encounter Details Date Type Department Care Team (Late st Contact Info) Description 03/18/2018 Orders Only [facility] ProviderHao MD [address] [place] [address] Social History Tobacco Use Types Packs/Day Years Used Date Smoking Tobacco: Never Alcohol Use Standard Drinks/Week Comments No 0 (1 standard drink = 0.6 oz pur e alcohol) Comments No Sex and Gender Information Value Date Recorded Sex Assigned at Not on file 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 us Historical Provider LAB PATHOLOGY ORDERABLES Final Result documented in this encounter Visit Diagnoses Not on filedocumented in this encounter Care Teams Sustainable Design Coordinator Relationship Specialty Start Date End Date Trey Araiza MD [address] [place] [address] PCP - General 02/04/17 06/20/21 Shady Solis MD [address] [place] [address] PCP - General Internal Medicine 06/21/21 07/18/24 Wilfredo Grier DO [address] [place] [address] PCP - General Family Medicine 07/19/24 documented as of this encounter
--- OUTSIDE RECORDS SUMMARY | 2025-02-03 14:52 | XMS_ITS | Clinical Summary ---
Author Organization [facility] Address [facility] [place] [address] Care Team Providers Care Director Medical Science Name Role Phone Shady Solis MD Primary Care Provider [phone] Social History Tobacco Use Types Packs/Day Years Used Date Smoking Tobacco: Never Assessed Comments Unknown Sex and Gender Information Value Date Recorded Sex Assigned at Not on file Legal Sex Female 6:55 PM CDT Gender Identity Not on file Sexual Orientation Not on file Plan of Treatment Health Maintenance Due Date Last Done Comments Cervical Cancer Screening Pa p Smear (Age 30 to 64) Every 3 Years 1981 Annual Physical 1984 Hepatitis C 1999 DTaP, Tdap and Td Vaccines ( 1 - Tdap) 2000 Hepatitis B Vaccines (1 of 3 - 19+ 3-dose series) 2000 Cervical Cancer Screening Pa p with HPV Testing (Age 30 to 64) Every 5 Years 2011 Cervical Cancer Screening with HPV 2011 Mammogram Screening 2021 COVID-19 Vaccine ( - 2023-2 5 season) 2024 Influenza Adult (#1) 2024 HPV Vaccines Aged Out No longer eligi ble based on patient's age to complete this topic Meningococcal B Vaccine Aged Out No l onger eligible based on patient's age to complete this topic Meningococcal Vaccine Aged Out No ann karely eligible based on patient's age to complete this topic Pneumococcal Vaccine: Pediat rics (0 to 5 Years) and At-Risk Patients (6 to 64 Years) Aged Out No longer eligible b ased on patient's age to complete this topic RSV Immunizations Under 20 Months Aged Out No longer eligible based on patient's age to complete this topic Insurance [facility] C/[employer] [id number] Care Teams Director Medical Science Relationship Specialty Start Date End Date Shady Solis MD [address] [place] [address] PCP - General INTERNAL MEDICINE 05/09/20
--- OUTSIDE RECORDS SUMMARY | 2025-02-03 14:52 | XMS_ITS | Encounter Summary ---
Author Organization [facility] Address [address] [place] [address] Care Team Providers Care Card Game Operator Name Role Phone Ria Garnica MD Primary Care Pro vider Encounter Details Date Type Department Care Team (Latest Contact Info) Description 08/28/2006 Inpatient Historical HIS PATIENT IN A BED Caleb Royal MD [address] [facility] [address] [place] [address] Major Depressive Disorder, Single Episode, Unspecified (Primary Dx) Social History Tobacco Use Types Packs/Day Years Used Date Smoking Tobacco: Never Assessed Comments Unknown Sex and Gender Information Value Date Recorded Sex Assigned at Not on file 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 Gender Identity Not on file Sexual Orientation Not on file documented as of this encounter Plan of Treatment Not on file documented as of this encounter Procedures Procedure Name Priority Date/Time Associated Diagnosis Comments TSH REFLEXIVE Routine 08/29/2006 5:15 AM CDT ACETAMINOPHEN LEVEL Routine 08/29/2006 5 :15 AM CDT URINALYSIS W/REFLEX MICROSCOPIC Routine 08/28/2006 8:35 PM CDT documented in this encounter Results * TSH REFLEXIVE (08/29/2006 5:15 AM CDT) TSH 1.46 0.27 - 4.20 uU/mL INTERFACE SYSTEM 08/29/2006 5:15 AM CDT Caleb Royal MD CHEMISTRY ORDERABLES Final Resul t Performing Organization Address City/[facility] Phone Number INTERFACE SYSTEM Refer to clinic/hospital department * (ABNORMAL) ACETAMINOPHEN LEVEL (08/29/2006 5:15 AM CDT) ACETAMINOPHEN LEVEL <0.7(L) 10.0 - 20.0 ug/mL INTERFACE SYSTEM 08/29/2006 5:15 AM CDT Caleb Royal MD CHEMISTRY ORDERABLES Final Resul t Performing Organization Address [facility] Phone Number INTERFACE SYSTEM Refer to clinic/hospital department * (ABNORMAL) URINALYSIS (08/28/2006 8:35 PM CDT) COLOR UA Yellow INTERFACE SYSTEM CLARITY UA Slt. Cloudy(A) Clear INTERFACE SYSTEM SPECIFIC GRAVITY UA 1.010 1.001 - 1.035 INTERFACE SYSTEM PH UA 5.5 5.0 - 8.0 INTERFACE SYSTEM LEUKOCYTE ESTERASE UA 3+(A) Negative INTERFACE SYSTEM NITRITE UA Positive(A) Negative INTERFA CE SYSTEM PROTEIN UA Negative Negative INTERFACE SYSTEM GLUCOSE UA Negative Negative INTERFACE SYSTEM KETONES UA Negative Negative INTERFACE SYSTEM UROBILINOGEN UA <1 <=1 mg/dL INTE RFACE SYSTEM BILIRUBIN UA Negative Negative INTERFA CE SYSTEM BLOOD UA 1+(A) Negative INTERFACE SYSTEM WBC UA >100(H) 0 - 5 /HPF INTERFACE SYSTEM RBC UA 8(H) 0 - 4 /HPF INTERFACE SYSTEM BACTERIA UA 1+(A) None Seen /HPF INTERFACE SYSTEM EPITHELIAL CELLS, URINE 2-5 /HPF INTERFACE SYSTEM 08/28/2006 8:35 PM CDT Caleb Royal MD URINE ORDERABLES Final Result Performing Organization Address City/[facility] Phone Number INTERFACE SYSTEM Refer to clinic/hospital department documented in this encounter Visit Diagnoses Diagnosis Major depressive disorder, single episode, unspecified- Primary documented in this encounter Care Teams Card Game Operator Relationship Specialty Start Date End Date Ria Garnica MD PCP - General Family Practice 08/05/19 documented as of this encounter
--- OUTSIDE RECORDS SUMMARY | 2025-02-03 14:52 | XMS_ITS | Encounter Summary ---
Author Organization [facility] Address [address] [place] [address] Phone Care Team Providers Care Ammonium Nitrate Neutralizer Name Role Phone Trey Araiza MD Primary Care Provider [phone]- [phone] Shady Solis MD Primary Care Provider [phone] Wilfredo Grier DO Primary Care Provider Encounter Details Date Type Department Care Team (Late st Contact Info) Description 01/27/2018 Orders Only [facility] ProviderHao MD [address] [place] [address] Social History Tobacco Use Types Packs/Day Years Used Date Smoking Tobacco: Never Alcohol Use Standard Drinks/Week Comments No 0 (1 standard drink = 0.6 oz pur e alcohol) Comments No Sex and Gender Information Value Date Recorded Sex Assigned at Not on file Legal Sex Female 11:13 AM CLIENT OPERATIONS MANAGER Gender Identity Not on file Sexual Orientation Not on file documented as of this encounter Plan of Treatment Not on file documented as of this encounter Procedures Procedure Name Priority Date/Time Associated Diagnosis Comments CYTOLOGY 01/27/2018 12:00 AM CLIENT OPERATIONS MANAGER documented in this encounter Results * CYTOLOGY (01/27/2018 12:00 AM CLIENT OPERATIONS MANAGER) Narrative 01/27/2018 12:00 AM CLIENT OPERATIONS MANAGER Ordered by an unspecified provider. us Historical Provider LAB CYTOLOGY ORDERABLES F inal Result documented in this encounter Visit Diagnoses Not on filedocumented in this encounter Care Teams Ammonium Nitrate Neutralizer Relationship Specialty Start Date End Date Trey Araiza MD [address] [place] [address] PCP - General 02/04/17 06/20/21 Shady Solis MD [address] [place] [address] PCP - General Internal Medicine 06/21/21 07/18/24 Wilfredo Grier DO [address] [place] [address] PCP - General Family Medicine 07/19/24 documented as of this encounter
--- NOTE | 2025-02-04 08:26 | REHSTMBS ---
Assessment and note entered by Keri Ayers, QUOTATION CLERK Modified Barium Swallow Evaluation Feeding Type Recommended Oral Food Consistency Regular, Level 7 Liquid Consistency Thin (0) ST Clinical Summary The above pleasant and cooperative pt was seen for an outpatient modified barium swallow. She was alert & able to answer questions related to eating /swallowing. She stated it feels like food gets stuck at the very bottom of her throat. She reports it has been occurring x3 months and says it feels like she is choking when she lays down. Pt reports having GERD and IBS. She is currently on a regular diet. Oral mucosa is normal & vocal quality was clear. The patient was seated for a lateral view and presented with 5cc of thin liquid barium via spoon , pudding consistency barium via a spoon, cracker coated with barium pudding via spoon, and uncontrolled thin liquid barium. This was presented via a cup & straw. Oral preparatory and oral phase symptoms: none. Pharyngeal phase symptoms: none. Esophageal stage symptoms: none. No aspiration occurred. Impressions: Normal swallow Ability No further ST is warranted at this time.
== END 2025-02-03 13:28 | disposition home or self-care (01) ==
PROVIDERS: PCP Family Medicine; Visit Provider Family Medicine
DX: R13.10 Dysphagia, unspecified (principal)
CPT/HCPCS: 92611

== ENCOUNTER 2025-04-05 10:45 | Outpatient (CLI) | payer OTHER, SELFPAY ==
[2025-04-05 11:07] LABS: Basophils Absolute Auto 0.07 K/mm3 (0.00-0.10); Basophils Percent Auto 1.1 % (0.0-1.0); Eosinophils Absolute Auto 0.13 K/mm3 (0.02-0.50); Eosinophils Percent Auto 2.1 % (1.0-6.0); Hematocrit 43.4 % (35.0-49.0); Hemoglobin 14.2 g/dL (12.0-15.0); Immature Granulocyte Absolute 0.02 K/mm3 (0.00-0.00); Immature Granulocyte Percent A 0.3 % (0.0-0.0); Lymphocytes Absolute Auto 1.83 K/mm3 (1.10-4.50); Lymphocytes Percent Auto 29.1 % (18.0-42.0); Mean Corpuscular HGB Conc 32.7 g/dL (32-36); Mean Corpuscular Hemoglobin 30.4 pg (27.0-31.0); Mean Corpuscular Volume 92.9 fL (78.0-102.0); Mean Platelet Volume 9.6 fl (9.2-11.8); Monocytes Absolute Auto 0.68 K/mm3 (0.10-0.90); Monocytes Percent Auto 10.8 % (2.0-11.0); Neutrophils Absolute Auto 3.56 K/mm3 (1.70-7.20); Neutrophils Percent Auto 56.6 % (50.0-70.0); Platelet Count Result 236 K/mm3 (150-420); Red Blood Count 4.67 M/mm3 (4.20-5.40); Red Cell Distribution Width 11.9 % (11.6-14.4); White Blood Count 6.3 K/mm3 (4.8-10.8)
[2025-04-05 11:12] LABS: Add Urine Microscopic? NO; Appearance Urine Clear (Clear); Bilirubin Urine Negative (Negative); Blood Urine Trace-intact (Negative); Color Urine Light Yellow (Yellow); Glucose Urine UA Negative (Negative); Ketones Urine Negative (Negative); Leukocyte Esterase Ur Negative LEU/UL (Negative); Nitrate Urine Negative (Negative); Protein Urine Negative (Negative); Specific Grav Ur 1.025 (1.010-1.020); Urobilinogen Urine 0.2 mg/dL (0.2-1.0)
[2025-04-05 11:17] LABS: Pregnancy On Board Control Positive; Urine Pregnancy Test Negative
[2025-04-05 11:24] LABS: Hemoglobin A1C 5.6 % (<5.7)
--- OUTSIDE RECORDS SUMMARY | 2025-04-05 11:41 | XMS_ITS | Encounter Summary ---
Author Organization [facility] Address [address] [place] [address] Phone Care Team Providers Care Ranch Hand Name Role Phone Trey Araiza MD Primary Care Provider [phone]- [phone] Shady Solis MD Primary Care Provider [phone] Wilfredo Grier DO Primary Care Provider Encounter Details Date Type Department Care Team (Late st Contact Info) Description 03/18/2018 Orders Only [facility] ProviderHao MD [address] [place] [address] Social History Tobacco Use Types Packs/Day Years Used Date Smoking Tobacco: Never Alcohol Use Standard Drinks/Week Comments No 0 (1 standard drink = 0.6 oz pur e alcohol) Comments No Sex and Gender Information Value Date Recorded Sex Assigned at Not on file Legal Sex Female 11:13 AM CHAIR FINISHER Gender Identity Not on file Sexual Orientation [...] on filedocumented in this encounter Care Teams Ranch Hand Relationship Specialty Start Date End Date Trey Araiza MD [address] [place] [address] PCP - General 02/04/17 06/20/21 Shady Solis MD [address] [place] [address] PCP - General Internal Medicine 06/21/21 07/18/24 Wilfredo Grier DO [address] [place] [address] PCP - General Family Medicine 07/19/24 documented as of this encounter
--- OUTSIDE RECORDS SUMMARY | 2025-04-05 11:41 | XMS_ITS | Clinical Summary ---
Author Organization [facility] Address [address] [place] [address] Phone Care Team Providers Care Radiology Physician Assistant Name Role Phone Ria Garnica MD Primary [...] on file Legal Sex Female 4:38 AM SEASONAL CLERK Gender Identity Not on file Sexual Orientation Not on file Occupation Industry Job Start Date Job End Date Not on file Not on file Not on file Not on file Last Filed Vital Signs Vital Sign Reading Time Taken Comments Blood Pressure 105/71 10/08/2019 11:36 AM SEASONAL CLERK Pulse 73 10/08/2019 11:36 AM SEASONAL CLERK Temperature 36.3 C (97.4 F) 10/08/2019 11:25 AM SEASONAL CLERK Respiratory Rate 22 10/08/2019 11:36 AM SEASONAL CLERK Oxygen Saturation 98% 10/08/2019 11:36 AM SEASONAL CLERK Inhaled Oxygen Concentration - - Weight 82.2 kg (181 lb 3.2 oz) 10/08/2019 10:07 AM SEASONAL CLERK Height 170.2 cm (5' 7 ) 10/08/2019 10:07 AM SEASONAL CLERK Body Mass Index 28.38 10/08/2019 10:07 AM SEASONAL CLERK Plan of Treatment Health Maintenance Due Date Last Done Comments DTAP/TDAP/TD VACCINES (1 - Tdap) 2000 HEPATITIS B VACCINES (1 of 3 - 19+ 3-dose series) 2000 HPV/Cotest (21-29) 2002 CERVICAL CANCER SCREENING 2011 HPV/Cotest (30-65) 2011 PAP SMEAR 2011 BREAST CANCER SCREENING 2021 INFLUENZA VACCINE (#1) 2024 HPV VACCINES Aged Out No longer eligi ble based on patient's age to complete this topic Insurance MEDICAID [place] Advance Directives For more information, please contact: [phone] * Full Code (Latest Code Status on File) Date Activated Date Inactivated Comments 08/09/2013 9:47 PM 08/11/2013 4:12 PM * Full Code Date Activated Date Inactivated Comments 08/09/2013 7:29 PM 08/09/2013 9:47 PM * Full Code Date Activated Date Inactivated Comments 05/24/2010 12:12 PM 05/27/2010 2:13 PM Care Teams Radiology Physician Assistant Relationship Specialty Start Date End Date Ria Garnica MD PCP - General Family Practice 08/05/19
--- OUTSIDE RECORDS SUMMARY | 2025-04-05 11:41 | XMS_ITS | Clinical Summary ---
Author Organization [facility] Address [address] [place] [address] Care Team Providers Care Wedding Consultant Name Role Phone Shady Solis MD Primary Care Provider [phone] Social History Tobacco Use Types Packs/Day Years [...] Vaccine ( - 2023-2 5 season) 2024 HPV Vaccines Aged Out No longer eligi ble based on patient's age to complete this topic Meningococcal B Vaccine Aged Out No l onger eligible based on patient's age to complete this topic Meningococcal Vaccine Aged Out No ann karely eligible based on patient's age to complete this topic Pneumococcal Vaccine: Pediat rics (0 to 5 Years) and At-Risk Patients (6 to 49 Years) Aged Out No longer eligible b ased on patient's age to complete this topic RSV Immunizations Under 20 Months Aged Out No longer eligible based on patient's age to complete this topic Insurance [facility] C/[employer] [id number] Care Teams Wedding Consultant Relationship Specialty Start Date End Date Shady Solis MD [address] [place] [address] PCP - General INTERNAL MEDICINE 05/09/20
--- OUTSIDE RECORDS SUMMARY | 2025-04-05 11:41 | XMS_ITS | Referral Summary ---
Author Organization [facility] Address [address] [place] [address] Care Team Providers Care Cleaning Machine Operator Name Role Phone Wilfredo Grierrish Primary Care Provider Allergies Active Allergy Reactions Criticality Noted Date Comments Prochlorperazine Nausea And Vomiting Medium 08/11/2013 Also facial twitching Medications multivit lmihhvrq-lxai-R A-calcium (THERA-M) 9 mg iron-400 mcg tabletIndicatio [...] -GBS: negative -Contraception: -Peds: FP physician in [place] -: Tereso -Flu: Declines Advanced maternal age, [...] on file Legal Sex Female 11:13 AM GRANTS ANALYST Gender Identity Not on file Sexual Orientation Not on file 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 on file Not on file Not on file Last Filed Vital Signs Vital Sign Reading Time Taken Comments Blood Pressure 108/78 08/13/2024 10:41 AM CDT Pulse 74 01/27/2023 11:30 PM GRANTS ANALYST Temperature 36.5 C (97.7 F) 01/27/2023 7:33 PM GRANTS ANALYST Respiratory Rate 18 01/27/2023 7:33 PM GRANTS ANALYST Oxygen Saturation 97% 01/27/2023 11:30 PM GRANTS ANALYST Inhaled Oxygen Concentration - - Weight 75.3 kg (166 lb) 08/13/2024 10:41 AM CDT Height 170.2 cm (5' 7 ) 08/13/2024 10:41 AM CDT Body Mass Index 26 08/13/2024 10:41 AM CDT Plan of Treatment Not on file Procedures Procedure Name Priority Date/Time Associated Diagnosis Comments SCREENING MAMMOGRAM BILATERAL W BABS Schedule Routine, Read Routine (OP Routine) 08/13/2024 [...] Maintenance Results * Screening Mammogram Bilateral W Babs (08/13/2024 9:06 AM CDT) Anatomical Region Laterality Modality Breast Bilateral Mammography Narrative 08/13/2024 9:24 AM CDT Examination: Screening Mammogram Bilateral W Babs: 08/13/24 Clinical: Screening mammogram, encounter for. Prior Study Comparisons: Comparison was made to the prior available relevant studies at the time of interpretation. Findings: Screening Mammogram Bilateral W Babs Bilateral No significant masses, malignant type calcifications, [...] CDT 08/12/2023 10:50 AM CDT Narrative PATHOLOGY [facility] - 08/18/2023 1:01 PM CDT EPIC results best viewed via link to PDF [address] [address] Tele: Mara Mckeon MD - Quality Systems Technician CYTOLOGY REPORT Note to Patients: [...] the details. Patient Name: RONDA NUNEZ Address: [address] [place] [address]- Gender: F : 1980 (Age: 43) Service: Location: Hospital #: [id number] Patient Type: [facility] SPECIMEN Taken: 08/08/2023 Reported: [...] LAB CYTOLOGY ORDERABLE S Final Result PATHOLOGY [facility] Laboratory Receiving [address] [place] [address] * Hepatitis C antibody (05/28/2017 2:04 PM CDT) Hep C Ab <0.1 0.0 - 0.9 s/co ratio [facility] - 01 Comment: Negative: < 0.8 Indeterminate: 0.8 - 0.9 Positive: > 0.9 The CDC recommends that a positive HCV antibody result be followed up with a HCV Nucleic Acid Amplification test (002715). Blood specimen (specimen) 05/28/2017 2:04 PM CDT 05/28/2017 Narrative [facility] - 05/30/2017 2:06 AM CDT Performed at: - [facility] [id number] Lead: Catalino Fleming PhD, Phone: [phone] us Jenny Garces MD LAB MICROBIOLOGY - GEN ERAL ORDERABLES Final Result [facility] - from Last 3 Months or Most Recently Relevant to Health Maintenance Insurance [facility] Member Subscriber Plan / Payer (Ef fective 2021-Present) Name:Ronda Nunez Relation to Subscriber:Self Name:Ronda Nunez Payer ID:[id number] (NAIC) Group ID:Not on file Type:MEDICAID RISK OTHER Address: [address] [place], [place] [address] [place] [address] [facility] Care Teams Cleaning Machine Operator Relationship Specialty Start Date End Date Wilfredo Grier DO [address] [place] [address] PCP - General Family Medicine 07/19/24
--- OUTSIDE RECORDS SUMMARY | 2025-04-05 11:41 | XMS_ITS | Encounter Summary ---
Author Organization [facility] Address [address] [place] [address] Care Team Providers Care Scientist Immunology Name Role Phone Ria Garnica MD Primary Care Pro vider Encounter Details Date Type Department Care Team (Latest Contact Info) Description 08/28/2006 Inpatient Historical HIS [place] [address] [place] [address] [address] [place] [address] Major Depressive Disorder, Single Episode, Unspecified (Primary Dx) Social History Tobacco Use Types Packs/Day Years Used Date Smoking Tobacco: Never Assessed Comments Unknown Sex and Gender Information Value Date Recorded Sex Assigned at Not on file Legal Sex Female 4:38 AM STEEL 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 Gender Identity Not on file Sexual Orientation [...] ORDERABLES Final Resul t Performing Organization Address City/[facility] Phone Number INTERFACE SYSTEM Refer to clinic/hospital department * (ABNORMAL) ACETAMINOPHEN LEVEL (08/29/2006 5:15 AM CDT) ACETAMINOPHEN LEVEL <0.7(L) 10.0 - 20.0 ug/mL INTERFACE SYSTEM 08/29/2006 5:15 AM CDT Caleb Royal MD CHEMISTRY ORDERABLES Final Resul t Performing Organization Address [facility] Phone Number INTERFACE SYSTEM Refer to clinic/hospital [...] URINE ORDERABLES Final Result Performing Organization Address City/[facility] Phone Number INTERFACE SYSTEM Refer to clinic/hospital department documented in this encounter Visit Diagnoses Diagnosis Major depressive disorder, single episode, unspecified- Primary documented in this encounter Care Teams Scientist Immunology Relationship Specialty Start Date End Date Ria Garnica MD PCP - General Family Practice 08/05/19 documented as of this encounter
--- OUTSIDE RECORDS SUMMARY | 2025-04-05 11:41 | XMS_ITS | Encounter Summary ---
Author Organization [facility] Address [address] [place] [address] Care Team Providers Care Senior Systems Analyst Name Role Phone Ria Garnica MD Primary Care Pro vider Encounter Details Date Type Department Care Team (Late st Contact Info) Description 06/01/2008 Outpatient Historical HIS IMG-LAB [facility] Abiodun Owen MD [address] [place] [address] Unspecified Symptom Associated with Female Genital Organs Social History Tobacco Use Types Packs/Day Years Used Date Smoking Tobacco: Never Assessed Comments No Sex and Gender Information Value Date Recorded Sex Assigned at Not on file Legal Sex Female 4:38 AM AXLE AND FRAME MECHANIC Gender Identity Not on file Sexual Orientation [...] PM CDT Narrative 06/01/2008 3:29 PM CDT [address] [address] Admit Date: 06/01/2008 RONDA CAMACHO Sex: F Admit Prov: ABIODUN OWEN Date: 1980 Primary Care Prov: ABIODUN OWEN CMRN: [id number] [id number] IM[facility] Ordering Prov: N/A Accession Number: [id number] Interpretation EXAMINATION: ULTRASOUND OF THE PELVIS Clinical [...] 15:28 Procedure Note Provider, Historical - 06/01/[address] [address] Admit Date: 06/01/2008 RONDA CAMACHO Sex: F Admit Prov: ABIODUN OWEN Date: 1980 Primary Care Prov: ABIODUN OWEN CMRN: [id number] [facility] [id number] IMAGING SERVICES Ordering Prov: N/A Interpretation EXAMINATION: [...] organs documented in this encounter Care Teams Senior Systems Analyst Relationship Specialty Start Date End Date Ria Garnica MD PCP - General Family Practice 08/05/19 documented as of this encounter
--- OUTSIDE RECORDS SUMMARY | 2025-04-05 11:41 | XMS_ITS | Clinical Summary ---
Author Organization [facility] Address [address] [place] [address] Care Team Providers Care Claims Auditor Name Role Phone Cherrie Wilfredo Ulrichrish Primary Care Provider Allergies Active Allergy Reactions Criticality Noted Date Comments Prochlorperazine Nausea And Vomiting Medium 08/11/2013 Also facial twitching Medications multivit gvequmbc-efli-F A-calcium (THERA-M) 9 mg iron-400 mcg tabletIndicatio [...] -GBS: negative -Contraception: -Peds: FP physician in [place] -: Tereso -Flu: Declines Advanced maternal age, [...] Date Comments HPV (human papilloma virus) infection 2016 Anxiety 2020 Meningitis Viral meningitis 2005 & [...] on file Legal Sex Female 11:13 AM PRESS OPERATOR APPRENTICE Gender Identity Not on file Sexual Orientation Not on file 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 on file Not on file Not on file Obstetrics History Para Term AB IAB SAB Ectopic Multiple Livin g Live Births 1 1 1 1 1 Date Outcome GA Total Labor Labor/2nd/3rd Weight Sex Type Anes PTL Ina A1 A5 Name Clin 12/24 Term 38w 0d 2.977 kg (6 lb 9 oz) Vag-S pont Living Kaur Betts Last Filed Vital Signs Vital Sign Reading Time Taken Comments Blood Pressure 108/78 08/13/2024 10:41 AM CDT Pulse 74 01/27/2023 11:30 PM PRESS OPERATOR APPRENTICE Temperature 36.5 C (97.7 F) 01/27/2023 7:33 PM PRESS OPERATOR APPRENTICE Respiratory Rate 18 01/27/2023 7:33 PM PRESS OPERATOR APPRENTICE Oxygen Saturation 97% 01/27/2023 11:30 PM PRESS OPERATOR APPRENTICE Inhaled Oxygen Concentration - - Weight 75.3 [...] 2-dose series) 1994 Hepatitis B Screening 1999 Cervical Cancer Screening 08/08/20242022, 08/08/2023, 08/07/2022 Influenza Vaccine (Season Ended) 2025 Breast Cancer Screening-Mammogram 08/13/2025 08/13/2024, 07/28/2023, 08/07/2022 [...] CDT 08/12/2023 10:50 AM CDT Narrative PATHOLOGY [facility] - 08/18/2023 1:01 PM CDT EPIC results best viewed via link to PDF [address] [address] [place], [place] [address] Tele: Mara Mckeon MD - Taxicab Dispatcher CYTOLOGY REPORT Note to Patients: This report [...] the details. Patient Name: RONDA NUNEZ Address: [address] [place] [address]- Gender: F : 1980 (Age: 43) Service: Location: Hospital #: [id number] Patient Type: [facility] SPECIMEN Taken: 08/08/2023 Reported: 08/18/2023 Physician(s): Jenny Garces M.D. FINAL DIAGNOSIS: SOURCE OF SPECIMEN - ThinPrep Pap and HPV w/ reflex Genotyping: STATEMENT OF ADEQUACY Source: Cervical/Endocervical - Satisfactory for interpretation - Endocervical /Transformation Zone component present - Case screened using computer assisted imaging technology GENERAL CATEGORIZATION: - Negative for intraepithelial lesion or malignancy jx/08/18/2023 13:01REGAN Tapia (ASCP) Report Reviewed and Electronically [...] MD LAB CYTOLOGY ORDERABLE S Final Result Performing Organization Address City/[facility] Co de Phone Number PATHOLOGY [facility] Laboratory Re[address] [place] [address] * Hepatitis C antibody (05/28/2017 2:04 PM CDT) Hep C Ab <0.1 0.0 - 0.9 s/co ratio [facility] - 01 Comment: Negative: < 0.8 Indeterminate: 0.8 - 0.9 Positive: > 0.9 The CDC recommends that a positive HCV antibody result be followed up with a HCV Nucleic Acid Amplification test (448192). Blood specimen (specimen) 05/28/2017 2:04 PM CDT 05/28/2017 Narrative [facility] - 05/30/2017 2:06 AM CDT Performed at: [address] [id number] Ruby Engineer: Catalino Fleming PhD, Phone: [phone] Jenny Garces MD LAB MICROBIOLOGY - GEN ERAL ORDERABLES Final Result Performing Organization Address City/[facility] de Phone Number [facility] - 01 from Last 3 Months or Most Recently Relevant to Health Maintenance Insurance [facility] Care Teams Claims Auditor Relationship Specialty Start Date End Date Wilfredo Grier DO [address] [place] [address] PCP - General Family Medicine 07/19/24
--- OUTSIDE RECORDS SUMMARY | 2025-04-05 11:41 | XMS_ITS | Encounter Summary ---
Author Organization [facility] Address [address] [place] [address] Phone Care Team Providers Care Neuroradiologist Name Role Phone Trey Araiza MD Primary Care Provider [phone]- [phone] Shady Solis MD Primary Care Provider [phone] Wilfredo Grier DO Primary Care Provider Encounter Details Date Type Department Care Team (Late st Contact Info) Description 01/27/2018 Orders Only [facility] ProviderHao MD [address] [place] [address] Social History Tobacco Use Types Packs/Day Years Used Date Smoking Tobacco: Never Alcohol Use Standard Drinks/Week Comments No 0 (1 standard drink = 0.6 oz pur e alcohol) Comments No Sex and Gender Information Value Date Recorded Sex Assigned at Not on file Legal Sex Female 11:13 AM TRAVELING SECRETARY Gender Identity Not on file Sexual Orientation Not on file documented as of this encounter Plan of Treatment Not on file documented as of this encounter Procedures Procedure Name Priority Date/Time Associated Diagnosis Comments CYTOLOGY 01/27/2018 12:00 AM TRAVELING SECRETARY documented in this encounter Results * CYTOLOGY (01/27/2018 12:00 AM TRAVELING SECRETARY) Narrative 01/27/2018 12:00 AM TRAVELING SECRETARY Ordered by an unspecified provider. us Historical Provider LAB CYTOLOGY ORDERABLES F inal Result documented in this encounter Visit Diagnoses Not on filedocumented in this encounter Care Teams Neuroradiologist Relationship Specialty Start Date End Date Trey Araiza MD [address] [place] [address] PCP - General 02/04/17 06/20/21 Shady Solis MD [address] [place] [address] PCP - General Internal Medicine 06/21/21 07/18/24 Wilfredo Grier DO [address] [place] [address] PCP - General Family Medicine 07/19/24 documented as of this encounter
--- OUTSIDE RECORDS SUMMARY | 2025-04-05 11:41 | XMS_ITS | Encounter Summary ---
Author Organization [facility] Address [address] [place] [address] Care Team Providers Care Vice President Digital Strategist Name Role Phone Ria Garnica MD Primary Care Pro vider Encounter Details Date Type Department Care Team (Late st Contact Info) Description 05/11/2008 Outpatient Historical [facility] EM[facility]Y [facility] Er, Authorized P NO ADDRESS ON FILE Lawrence Dao Jr., MD [facility] [place] [id number] Social History Tobacco Use Types Packs/Day Years Used Date Smoking Tobacco: Never Assessed Comments Unknown Sex and Gender Information Value Date Recorded Sex Assigned at Not on file Legal Sex Female 4:38 AM GENERATION 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 Gender Identity Not on file Sexual Orientation [...] PM CDT) , URINE POC Negative Negative [facility] SPECIFIC GRAVITY UA 1.010 1.001 - 1.035 [facility] Urine specimen (specimen) 05/11/2008 12:56 PM CDT 05/11/2008 12:56 PM CDT us Authorized P Er POINT OF CARE TESTING Final Resu lt Performing Organization Address [facility]/ZIP Co de Phone Number [facility] CLIA# [id number] [address] [place] [address] * POC URINALYSIS DIPSTICK (05/11/2008 12:56 PM CDT) CLARITY UA Clear [facility] PROTEIN UA Negative Negative [facility] BLOOD UA Negative Negative [facility] LEUKOCYTE ESTERASE UA Negative Negative [facility] UROBILINOGEN UA Normal Normal [facility] SPECIFIC GRAVITY UA 1.010 1.001 - 1.030 [facility] GLUCOSE UA Negative Negative [facility] COLOR UA Yellow [facility] BILIRUBIN UA Negative Negative [facility] NITRITE UA Negative Negative [facility] PH UA 5.0 5.0 - 8.0 [facility] KETONES UA Negative Negative [facility] Urine specimen (specimen) 05/11/2008 12:56 PM CDT 05/11/2008 12:56 PM CDT us Authorized P Er POINT OF CARE TESTING Final Resu lt Performing Organization Address [facility]/ZIP Co de Phone Number [facility] CLIA# [id number] [address] [place] [address] * COMPREHENSIVE METABOLIC PANEL (05/11/2008 12:35 PM CDT) CREATININE 0.77 0.51 - 0.95 mg/dL [facility] ALT 11 0 - 31 U/L [facility] SODIUM 138 135 - 145 mmol/L [facility] ALKALINE PHOSPHATASE 48 35 - 104 U/L [facility] CO2 24 22 - 30 mmol/L [facility] BILIRUBIN TOTAL 0.4 0.2 - 1.0 mg/dL [facility] POTASSIUM 3.5 3.5 - 4.9 mmol/L [facility] TOTAL PROTEIN 7.0 6.3 - 8.6 g/dL [facility] GLUCOSE 86 65 - 99 mg/dL [facility] AST 18 12 - 32 U/L [facility] BUN 7 6 - 20 mg/dL [facility] CALCIUM 8.6 8.4 - 10.2 mg/dL [facility] ALBUMIN 4.4 3.4 - 4.8 g/dL [facility] CHLORIDE 104 96 - 108 mmol/L [facility] GFR, >60 >=60 mL/min/1.7 sq meter [facility] GFR >60 >=60 mL/min/1.7 sq meter [facility] Comment: Modification of Diet in Renal Disease (MDRD) study formula. Estimated GFR rate interpretative information for both Americans and non- Americans is available on the [facility] Intranet at: [email or web address] Select: Lab Policies and Procedures Select: Reference Ranges - GFR Blood specimen (specimen) 05/11/2008 12:35 PM CDT 05/11/2008 12:50 PM CDT us Authorized P Er CHEMISTRY ORDERABLES Edited [facility] CLIA# [id number] [address], [place] [address] * CBC WITH DIFFERENTIAL (05/11/2008 12:35 PM CDT) RDW 12.0 11.5 - 14.5 % [facility] MCV 93.5 82.0 - 99.0 fL [facility] RBC 4.48 3.90 - 4.90 M/uL [facility] MCH 32.1 27.2 - 32.6 pg [facility] HEMOGLOBIN 14.4 11.8 - 14.8 g/dL [facility] RDW-STDEV 40.8 37.1 - 48.7 fL [facility] PLATELETS 178 140 - 350 K/uL [facility] MCHC 34.4 31.5 - 35.5 % [facility] HEMATOCRIT 41.9 35.5 - 44.0 % [facility] WBC 8.1 4.0 - 9.8 K/uL [facility] MPV 10.6 9.3 - 12.4 fL [facility] MONOCYTES 9 3 - 13 % [facility] MONOCYTE ABSOLUTE 0.71 0.10 - 1.30 K/uL [facility] NEUTROPHILS 58 45 - 70 % [facility] NEUTROPHIL ABSOLUTE 4.71 1.90 - 7.00 K/uL [facility] EOSINOPHILS 3 0 - 7 % [facility] EOSINOPHIL ABSOLUTE 0.20 0.00 - 0.70 K/uL [facility] LYMPHOCYTES 30 16 - 45 % [facility] LYMPHOCYTE ABSOLUTE 2.40 0.70 - 4.50 K/uL [facility] BASOPHILS 1 0 - 2 % [facility] BASOPHILS ABSOLUTE 0.05 0.00 - 0.20 K/uL [facility] Blood specimen (specimen) 05/11/2008 12:35 PM CDT 05/11/2008 12:50 PM CDT us Authorized P Er HEMATOLOGY ORDERABLES Edited [facility] CLIA# [id number] [address] [place] [address] documented in this encounter Visit Diagnoses Not on filedocumented in this encounter Care Teams Vice President Digital Strategist Relationship Specialty Start Date End Date Ria Garnica MD PCP - General Family Practice 08/05/19 documented as of this encounter
--- OUTSIDE RECORDS SUMMARY | 2025-04-05 11:41 | XMS_ITS | Encounter Summary ---
Author Organization [facility] Address [address] [place] [address] Care Team Providers Care Derrick Worker Well Service Name Role Phone Ria Garnica MD Primary Care Pro vider Encounter Details Date Type Department Care Team (Late st Contact Info) Description 05/25/2008 Outpatient Historical [facility] IMG[facility] Abiodun Owen MD [address] 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
[2025-04-05 12:58] LABS: Alanine Aminotransferase 21 U/L (14-59); Albumin Level 4.2 g/dL (3.4-5.0); Alkaline Phosphatase 48 U/L (46-116); Anion Gap 9 mmol/L (4-12); Aspartate Amino Transferase 15 U/L (15-37); Bilirubin,Total 0.5 mg/dL (0.00-1.00); Blood Urea Nitrogen 14 mg/dL (7-18); Calcium 9.1 mg/dL (8.5-10.1); Carbon Dioxide 27 mmol/L (21-32); Chloride 102 mmol/L (98-108); Cholesterol 161 mg/dL (0-200); Estimated Glomerular Filt Rate > 60; Glucose 104 mg/dL (70-99); HDL Direct 58 mg/dL (40-60); LDL Cholesterol Calculated 85 mg/dL (<130); Lipase 126 U/L (16-77); Osmolality Calculated 286 mOsm/kg (285-295); Potassium 4.4 mmol/L (3.5-5.1); Sodium 138 mmol/L (136-145); Triglycerides 92 mg/dL (0-150)
[2025-04-05 13:11] LABS: CRP < 0.5 mg/dL (0.0-0.9)
== END 2025-04-05 10:46 | disposition home or self-care (01) ==
LOC: CHSLAB 10:50
PROVIDERS: PCP Nurse Practitioner Family; Visit Provider Nurse Practitioner Family
DX: Z00.00 Encounter for general adult medical examination without abnormal findings (principal); R10.31 Right lower quadrant pain; R10.819 Abdominal tenderness, unspecified site
CPT/HCPCS: 36415; 80053; 80061; 81003; 81025; 83036; 83690; 85025; 86140

== ENCOUNTER 2025-04-06 07:46 | Outpatient (CLI) | payer OTHER, SELFPAY ==
--- NOTE | ~2025-04-06 | US_ITS ---
US abdomen complete EXAMINATION: US Abdomen Complete INDICATION: Right flank pain. Lower abdominal pain. PROCEDURE: Realtime High Resolution abdomen ultrasound. COMPARISON: CT dated 08/09/2024 FINDINGS: Gallbladder is surgically absent. Common bile duct measures 4 mm. Liver echotexture is increased, consistent with fatty infiltration.. Pancreas within normal limits. Pancreatic tail is obscured by bowel gas. Spleen is unremarkeable. Renal echotexture is within norm al limits bilaterally without hydronephrosis, contour deforming mass or renal stone. Right kidney radhika sures 9.4 cm. Left kidney measures 9.6 cm. Visualized aspects of the aorta and IVC are within normal limits. Portal vein is patent. No sonograph ic Olivares's sign indicated by the technologist. IMPRESSION: 1: Fatty infiltration of the liver. Reviewed, dictated and finalized at location A.
--- OUTSIDE RECORDS SUMMARY | 2025-04-06 07:49 | XMS_ITS | Referral Summary ---
Author Organization [facility] Address [address] [place] [address] Care Team Providers Care Kettle Loader Name Role Phone Wilfredo Grierrish Primary Care Provider Allergies Active Allergy Reactions Criticality Noted Date Comments Prochlorperazine Nausea And Vomiting Medium 08/11/2013 Also facial twitching Medications multivit oumgobni-ljlq-P A-calcium (THERA-M) 9 mg iron-400 mcg tabletIndicatio [...] -GBS: negative -Contraception: -Peds: FP physician in [place] -: Tereso -Flu: Declines Advanced maternal age, [...] on file Legal Sex Female 11:13 AM COUNTER SUPERVISOR Gender Identity Not on file Sexual Orientation Not on file 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 file Not on file Not on file Last Filed Vital Signs Vital Sign Reading Time Taken Comments Blood Pressure 108/78 08/13/2024 10:41 AM CDT Pulse 74 01/27/2023 11:30 PM COUNTER SUPERVISOR Temperature 36.5 C (97.7 F) 01/27/2023 7:33 PM COUNTER SUPERVISOR Respiratory Rate 18 01/27/2023 7:33 PM COUNTER SUPERVISOR Oxygen Saturation 97% 01/27/2023 11:30 PM COUNTER SUPERVISOR Inhaled Oxygen Concentration - - Weight 75.3 [...] CDT 08/12/2023 10:50 AM CDT Narrative PATHOLOGY [facility] - 08/18/2023 1:01 PM CDT EPIC results best viewed via link to PDF [address] [address] Tele: Mara Mckeon MD - Public Safety Teacher CYTOLOGY REPORT Note to Patients: This report [...] the details. Patient Name: RONDA NUNEZ Address: [address] [address]- Gender: F : 1980 (Age: 43) Service: Location: Hospital #: [id number] Patient Type: [facility] Taken: 08/08/2023 Reported: 08/18/2023 Physician(s): Jenny [...] LAB CYTOLOGY ORDERABLE S Final Result PATHOLOGY [facility] Laboratory Receiving [address] [place] [address] * Hepatitis C antibody (05/28/2017 2:04 PM CDT) Hep C Ab <0.1 0.0 - 0.9 s/co ratio [facility] - 01 Comment: Negative: < 0.8 Indeterminate: 0.8 - 0.9 Positive: > 0.9 The CDC recommends that a positive HCV antibody result be followed up with a HCV Nucleic Acid Amplification test (775173). Blood specimen (specimen) 05/28/2017 2:04 PM CDT 05/28/2017 Narrative [facility] - 05/30/2017 2:06 AM CDT Performed at: - [facility] [id number] [employer] Sprayer: Catalino Fleming PhD, Phone: [phone] us Jenny Garces MD LAB MICROBIOLOGY - GEN ERAL ORDERABLES Final Result [facility] - from Last 3 Months or Most Recently Relevant to Health Maintenance Insurance [facility] Member Subscriber Plan / Payer (Ef fective 2021-Present) Name:Ronda Nunez Relation to Subscriber:Self Name:Ronda Nunez Payer ID:[id number] (NAIC) Group ID:Not on file Type:MEDICAID RISK OTHER Address: [address] [place], [place] [id number] [place] [address] [facility] Care Teams Kettle Loader Relationship Specialty Start Date End Date Wilfredo Grier DO [address] [place] [address] PCP - General Family Medicine 07/19/24
--- OUTSIDE RECORDS SUMMARY | 2025-04-06 07:49 | XMS_ITS | Encounter Summary ---
Author Organization [facility] Address [address] [place] [address] Care Team Providers Care Sewer Pipe Layer Helper Name Role Phone Ria Garnica MD Primary Care Pro vider Encounter Details Date Type Department Care Team (Late st Contact Info) Description 05/25/2008 Outpatient Historical [facility] IMG[facility] Abiodun Owen MD [address] 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
--- OUTSIDE RECORDS SUMMARY | 2025-04-06 07:49 | XMS_ITS | Encounter Summary ---
Author Organization [facility] Address [address] [place] [address] Phone Care Team Providers Care Mri Assistant Name Role Phone Trey Araiza MD Primary Care Provider [phone]- [phone] Shady Solis MD Primary Care Provider [phone] Wilfredo Grier DO Primary Care Provider Encounter Details Date Type Department Care Team (Late st Contact Info) Description 03/18/2018 Orders Only [facility] ProviderHao MD [address] [place] [address] Social History Tobacco Use Types Packs/Day Years Used Date Smoking Tobacco: Never Alcohol Use Standard Drinks/Week Comments No 0 (1 standard drink = 0.6 oz pur e alcohol) Comments No Sex and Gender Information Value Date Recorded Sex Assigned at Not on file Legal Sex Female 11:13 AM TURNER IN Gender Identity Not on file Sexual Orientation [...] on filedocumented in this encounter Care Teams Mri Assistant Relationship Specialty Start Date End Date Trey Araiza MD [address] [place] [address] PCP - General 02/04/17 06/20/21 Shady Solis MD [address] [place] [address] PCP - General Internal Medicine 06/21/21 07/18/24 Wilfredo Grier DO [address] [place] [address] PCP - General Family Medicine 07/19/24 documented as of this encounter
--- OUTSIDE RECORDS SUMMARY | 2025-04-06 07:49 | XMS_ITS | Encounter Summary ---
Author Organization [facility] Address [address] [place] [address] Care Team Providers Care Electrician Underground Name Role Phone Ria Garnica MD Primary Care Pro vider Encounter Details Date Type Department Care Team (Latest Contact Info) Description 08/28/2006 Inpatient Historical HIS PATIENT IN A BED Caleb Royal MD [address] [facility] [address] [place] [address] Major Depressive Disorder, Single Episode, Unspecified (Primary Dx) Social History Tobacco Use Types Packs/Day Years Used Date Smoking Tobacco: Never Assessed Comments Unknown Sex and Gender Information Value Date Recorded Sex Assigned at Not on file 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 Gender Identity Not on file Sexual Orientation [...] ORDERABLES Final Resul t Performing Organization Address City/[facility] Phone Number INTERFACE SYSTEM Refer to clinic/hospital department * (ABNORMAL) ACETAMINOPHEN LEVEL (08/29/2006 5:15 AM CDT) ACETAMINOPHEN LEVEL <0.7(L) 10.0 - 20.0 ug/mL INTERFACE SYSTEM 08/29/2006 5:15 AM CDT Caleb Royal MD CHEMISTRY ORDERABLES Final Resul t Performing Organization Address [facility] Phone Number INTERFACE SYSTEM Refer [...] URINE ORDERABLES Final Result Performing Organization Address City/[facility] Phone Number INTERFACE SYSTEM Refer to clinic/hospital department documented in this encounter Visit Diagnoses Diagnosis Major depressive disorder, single episode, unspecified- Primary documented in this encounter Care Teams Electrician Underground Relationship Specialty Start Date End Date Ria Garnica MD PCP - General Family Practice 08/05/19 documented as of this encounter
--- OUTSIDE RECORDS SUMMARY | 2025-04-06 07:49 | XMS_ITS | Encounter Summary ---
Author Organization [facility] Address 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 Female 4:38 AM BUILDING 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 Gender Identity Not on file Sexual Orientation [...] PM CDT) , URINE POC Negative Negative [facility] SPECIFIC GRAVITY UA 1.010 1.001 - 1.035 [facility] Urine specimen (specimen) 05/11/2008 12:56 PM CDT 05/11/2008 12:56 PM CDT us Authorized P Er POINT OF CARE TESTING Final Resu lt Performing Organization Address [facility]/ZIP Co de Phone Number [facility] CLIA# [id number] [address] [place] [address] * POC URINALYSIS DIPSTICK (05/11/2008 12:56 PM CDT) CLARITY UA Clear [facility] PROTEIN UA Negative Negative [facility] BLOOD UA Negative Negative [facility] LEUKOCYTE ESTERASE UA Negative Negative [facility] UROBILINOGEN UA Normal Normal [facility] SPECIFIC GRAVITY UA 1.010 1.001 - 1.030 [facility] GLUCOSE UA Negative Negative [facility] COLOR UA Yellow [facility] BILIRUBIN UA Negative Negative [facility] NITRITE UA Negative Negative [facility] PH UA 5.0 5.0 - 8.0 [facility] KETONES UA Negative Negative [facility] Urine specimen (specimen) 05/11/2008 12:56 PM CDT 05/11/2008 12:56 PM CDT us Authorized P Er POINT OF CARE TESTING Final Resu lt Performing Organization Address [facility]/ZIP Co de Phone Number [facility] CLIA# [id number] [address] [place] [address] * COMPREHENSIVE METABOLIC PANEL (05/11/2008 12:35 PM CDT) CREATININE 0.77 0.51 - 0.95 mg/dL [facility] ALT 11 0 - 31 U/L [facility] SODIUM 138 135 - 145 mmol/L [facility] ALKALINE PHOSPHATASE 48 35 - 104 U/L [facility] CO2 24 22 - 30 mmol/L [facility] BILIRUBIN TOTAL 0.4 0.2 - 1.0 mg/dL [facility] POTASSIUM 3.5 3.5 - 4.9 mmol/L [facility] TOTAL PROTEIN 7.0 6.3 - 8.6 g/dL [facility] GLUCOSE 86 65 - 99 mg/dL [facility] AST 18 12 - 32 U/L [facility] BUN 7 6 - 20 mg/dL [facility] CALCIUM 8.6 8.4 - 10.2 mg/dL [facility] ALBUMIN 4.4 3.4 - 4.8 g/dL [facility] CHLORIDE 104 96 - 108 mmol/L [facility] GFR, >60 >=60 mL/min/1.7 sq meter [facility] GFR >60 >=60 mL/min/1.7 sq meter [facility] Comment: Modification of Diet in Renal Disease (MDRD) study formula. Estimated GFR rate interpretative information for both Americans and non- Americans is available on the [facility] Intranet at: [email or web address] Select: Lab Policies and Procedures Select: Reference Ranges - GFR Blood specimen (specimen) 05/11/2008 12:35 PM CDT 05/11/2008 12:50 PM CDT us Authorized P Er CHEMISTRY ORDERABLES Edited [facility] CLIA# [id number] [address], [place] [address] * CBC WITH DIFFERENTIAL (05/11/2008 12:35 PM CDT) RDW 12.0 11.5 - 14.5 % [facility] MCV 93.5 82.0 - 99.0 fL [facility] RBC 4.48 3.90 - 4.90 M/uL [facility] MCH 32.1 27.2 - 32.6 pg [facility] HEMOGLOBIN 14.4 11.8 - 14.8 g/dL [facility] RDW-STDEV 40.8 37.1 - 48.7 fL [facility] PLATELETS 178 140 - 350 K/uL [facility] MCHC 34.4 31.5 - 35.5 % [facility] HEMATOCRIT 41.9 35.5 - 44.0 % [facility] WBC 8.1 4.0 - 9.8 K/uL [facility] MPV 10.6 9.3 - 12.4 fL [facility] MONOCYTES 9 3 - 13 % [facility] MONOCYTE ABSOLUTE 0.71 0.10 - 1.30 K/uL [facility] NEUTROPHILS 58 45 - 70 % [facility] NEUTROPHIL ABSOLUTE 4.71 1.90 - 7.00 K/uL [facility] EOSINOPHILS 3 0 - 7 % [facility] EOSINOPHIL ABSOLUTE 0.20 0.00 - 0.70 K/uL [facility] LYMPHOCYTES 30 16 - 45 % [facility] LYMPHOCYTE ABSOLUTE 2.40 0.70 - 4.50 K/uL [facility] BASOPHILS 1 0 - 2 % [facility] BASOPHILS ABSOLUTE 0.05 0.00 - 0.20 K/uL [facility] Blood specimen (specimen) 05/11/2008 12:35 PM CDT 05/11/2008 12:50 PM CDT us Authorized P Er HEMATOLOGY ORDERABLES Edited [facility] CLIA# [id number] [address] [place] [address] documented in this encounter Visit Diagnoses Not on filedocumented in this encounter Care Teams Telephone Sales Representative Relationship Specialty Start Date End Date Ria Garnica MD PCP - General Family Practice 08/05/19 documented as of this encounter
--- OUTSIDE RECORDS SUMMARY | 2025-04-06 07:49 | XMS_ITS | Clinical Summary ---
Author Organization [facility] Address [address] [place] [address] Care Team Providers Care Payroll Examiner Name Role Phone Shady Solis MD Primary Care Provider [phone] Social History Tobacco Use Types Packs/Day Years [...] patient's age to complete this topic Insurance [facility] C/O PROVIDER SERVICES [employer] [id number] Care Teams Payroll Examiner Relationship Specialty Start Date End Date Shady Solis MD [address] [place] [address] PCP - General INTERNAL MEDICINE 05/09/20
--- OUTSIDE RECORDS SUMMARY | 2025-04-06 07:49 | XMS_ITS | Encounter Summary ---
Author Organization [facility] Address [address] [place] [address] Care Team Providers Care Assistant Professor Of Economics Name Role Phone Ria Garnica MD Primary Care Pro vider Encounter Details Date Type Department Care Team (Late st Contact Info) Description 06/01/2008 Outpatient Historical HIS IMG-LAB [facility] Abiodun Owen MD [address] [place] [address] Unspecified Symptom Associated with Female Genital Organs Social History Tobacco Use Types Packs/Day Years Used Date Smoking Tobacco: Never Assessed Comments No Sex and Gender Information Value Date Recorded Sex Assigned at Not on file 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 Gender Identity Not on file Sexual Orientation [...] PM CDT Narrative 06/01/2008 3:29 PM CDT [address] [address] Admit Date: 06/01/2008 RONDA CAMACHO Sex: F Admit Prov: ABIODUN OWEN Date: 1980 Primary Care Prov: ABIODUN OWEN CMRN: [id number] [id number] Ordering Prov: N/A Accession Number: [id number] Interpretation EXAMINATION: ULTRASOUND OF THE PELVIS Clinical [...] 15:28 Procedure Note Provider, Historical - 06/01/[address] [address] Admit Date: 06/01/2008 RONDA CAMACHO Sex: F Admit Prov: ABIODUN OWEN Date: 1980 Primary Care Prov: ABIODUN OWEN CMRN: [id number] [facility] [id number] IM[facility] SERVICES Ordering Prov: N/A Interpretation EXAMINATION: [...] organs documented in this encounter Care Teams Assistant Professor Of Economics Relationship Specialty Start Date End Date Ria Garnica MD PCP - General Family Practice 08/05/19 documented as of this encounter
--- OUTSIDE RECORDS SUMMARY | 2025-04-06 07:49 | XMS_ITS | Encounter Summary ---
Author Organization [facility] Address [address] [place] [address] Phone Care Team Providers Care Copy Writer Name Role Phone Trey Araiza MD Primary Care Provider [phone]- [phone] Shady Solis MD Primary Care Provider [phone] Wilfredo Grier DO Primary Care Provider Encounter Details Date Type Department Care Team (Late st Contact Info) Description 01/27/2018 Orders Only [facility] ProviderHao MD [address] [place] [address] Social History Tobacco Use Types Packs/Day Years Used Date Smoking Tobacco: Never Alcohol Use Standard Drinks/Week Comments No 0 (1 standard drink = 0.6 oz pur e alcohol) Comments No Sex and Gender Information Value Date Recorded Sex Assigned at Not on file Legal Sex Female 11:13 AM SECTION HAND Gender Identity Not on file Sexual Orientation Not on file documented as of this encounter Plan of Treatment Not on file documented as of this encounter Procedures Procedure Name Priority Date/Time Associated Diagnosis Comments CYTOLOGY 01/27/2018 12:00 AM SECTION HAND documented in this encounter Results * CYTOLOGY (01/27/2018 12:00 AM SECTION HAND) Narrative 01/27/2018 12:00 AM SECTION HAND Ordered by an unspecified provider. us Historical Provider LAB CYTOLOGY ORDERABLES F inal Result documented in this encounter Visit Diagnoses Not on filedocumented in this encounter Care Teams Copy Writer Relationship Specialty Start Date End Date Trey Araiza MD [address] [place] [address] PCP - General 02/04/17 06/20/21 Shady Solis MD [address] [place] [address] PCP - General Internal Medicine 06/21/21 07/18/24 Wilfredo Grier DO [address] [place] [address] PCP - General Family Medicine 07/19/24 documented as of this encounter
--- OUTSIDE RECORDS SUMMARY | 2025-04-06 07:49 | XMS_ITS | Clinical Summary ---
Author Organization [facility] Address [address] [place] [address] Care Team Providers Care Health Promotion Coordinator Name Role Phone Cherrie Wilfredo Ulrichrish Primary Care Provider Allergies Active Allergy Reactions Criticality Noted Date Comments Prochlorperazine Nausea And Vomiting Medium 08/11/2013 Also facial twitching Medications multivit uysihtbm-lvhn-M A-calcium (THERA-M) 9 mg iron-400 mcg tabletIndicatio [...] -GBS: negative -Contraception: -Peds: FP physician in [place] -: [place] -Flu: Declines Advanced maternal age, [...] on file Legal Sex Female 11:13 AM EXTRUSION TECHNICIAN Gender Identity Not on file Sexual Orientation Not on file 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 Not on file Not [...] AM CDT Pulse 74 01/27/2023 11:30 PM EXTRUSION TECHNICIAN Temperature 36.5 C (97.7 F) 01/27/2023 7:33 PM EXTRUSION TECHNICIAN Respiratory Rate 18 01/27/2023 7:33 PM EXTRUSION TECHNICIAN Oxygen Saturation 97% 01/27/2023 11:30 PM EXTRUSION TECHNICIAN Inhaled Oxygen Concentration - - Weight 75.3 [...] CDT 08/12/2023 10:50 AM CDT Narrative PATHOLOGY [facility] - 08/18/2023 1:01 PM CDT EPIC results best viewed via link to PDF [address] [place], [place] [address] Tele: Mara Mckeon MD - Senior Technical Specialist CYTOLOGY REPORT Note to Patients: This report [...] the details. Patient Name: RONDA NUNEZ Address: [address] [place] [address]- Gender: F : 1980 (Age: 43) Service: Location: Hospital #: [id number] Patient Type: [facility] SPECIMEN Taken: 08/08/2023 Reported: 08/18/2023 Physician(s): Jenny [...] ORDERABLE S Final Result Performing Organization Address City/[facility] Co de Phone Number PATHOLOGY [facility] Laboratory Receiving [address] [place] [address] * Hepatitis C antibody (05/28/2017 2:04 PM CDT) Hep C Ab <0.1 0.0 - 0.9 s/co ratio [facility] - 01 Comment: Negative: < 0.8 Indeterminate: 0.8 - 0.9 Positive: > 0.9 The CDC recommends that a positive HCV antibody result be followed up with a HCV Nucleic Acid Amplification test (160147). Blood specimen (specimen) 05/28/2017 2:04 PM CDT 05/28/2017 Narrative [facility] - 05/30/2017 2:06 AM CDT Performed at: [address] [id number] Pocket And Pulley Machine Operator: Catalino Fleming PhD, Phone: [phone] Jenny Garces MD LAB MICROBIOLOGY - GEN ERAL ORDERABLES Final Result Performing Organization Address City/[facility] de Phone Number [facility] - 01 from Last 3 Months or Most Recently Relevant to Health Maintenance Insurance [facility] Care Teams Health Promotion Coordinator Relationship Specialty Start Date End Date Wilfredo Grier DO [address] [place] [address] PCP - General Family Medicine 07/19/24
--- OUTSIDE RECORDS SUMMARY | 2025-04-06 07:49 | XMS_ITS | Clinical Summary ---
Author Organization [facility] Address 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 Gender Identity Not on file Sexual Orientation Not on file Occupation Industry Job Start Date Job End Date Not on file Not on file Not on file Not on file Last Filed Vital Signs Vital Sign Reading Time Taken Comments Blood Pressure 105/71 10/08/2019 11:36 AM SIEBEL ARCHITECT Pulse 73 10/08/2019 11:36 AM SIEBEL ARCHITECT Temperature 36.3 C (97.4 F) 10/08/2019 11:25 AM SIEBEL ARCHITECT Respiratory Rate 22 10/08/2019 11:36 AM SIEBEL ARCHITECT Oxygen Saturation 98% 10/08/2019 11:36 AM SIEBEL ARCHITECT Inhaled Oxygen Concentration - - Weight 82.2 kg (181 lb 3.2 oz) 10/08/2019 10:07 AM SIEBEL ARCHITECT Height 170.2 cm (5' 7 ) 10/08/2019 10:07 AM SIEBEL ARCHITECT Body Mass Index 28.38 10/08/2019 10:07 AM SIEBEL ARCHITECT Plan of Treatment Health Maintenance Due Date [...] Advance Directives For more information, please contact: [phone] * Full Code (Latest Code Status on File) Date Activated Date Inactivated Comments 08/09/2013 9:47 PM 08/11/2013 4:12 PM * Full Code Date Activated Date Inactivated Comments 08/09/2013 7:29 PM 08/09/2013 9:47 PM * Full Code Date Activated Date Inactivated Comments 05/24/2010 12:12 PM 05/27/2010 2:13 PM Care Teams Hot Top Liner Helper Relationship Specialty Start Date End Date Ria Garnica MD PCP - General Family Practice 08/05/19
== END 2025-04-06 07:47 | disposition home or self-care (01) ==
LOC: CHSIMG 07:47
PROVIDERS: PCP Nurse Practitioner Family; Visit Provider Nurse Practitioner Family
DX: R10.13 Epigastric pain (principal); R10.31 Right lower quadrant pain; R10.819 Abdominal tenderness, unspecified site; K76.0 Fatty (change of) liver, not elsewhere classified
CPT/HCPCS: 76700

== ENCOUNTER 2025-04-08 10:33 | Outpatient (CLI) | payer OTHER, MEDICAID, SELFPAY ==
--- NOTE | ~2025-04-08 | US_ITS ---
Pelvic ultrasound. Clinical History: Pain Technique: Realtime transabdominal and transvaginal scanning of the pelvis was performed. Color flow Doppler and Doppler spectral analysis were performed. Findings: The uterus is anteverted. The endometrial stripe has a thickness of 14 mm. No focal mass i s identified. The right ovary measures 3.3 x 2.9 x 3.1 cm. Hyperechoic mass or nodule the right ovary measures 2.4 cm in diameter. The left ovary measures 3.0 x 2.6 x 2.0 cm. No significant left ovarian or adnexal mass is seen. There is small amount of free fluid in the cul de sac. Impression: Small amount of free fluid. 2.4 cm hyperechoic mass or nodule in the right ovary. Small dermoid is a consideration versus possibl y acute hemorrhagic cyst. Reviewed, dictated and finalized at [facility]. Impression: Small amount of free fluid. 2.4 cm hyperechoic mass or nodule in the right ovary. Small dermoid is a consid eration versus possibly acute hemorrhagic cyst.
--- OUTSIDE RECORDS SUMMARY | 2025-04-08 10:37 | XMS_ITS | Encounter Summary ---
Author Organization [facility] Address 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 Gender Identity Not on file Sexual Orientation [...] POC Negative Negative [facility] SPECIFIC GRAVITY UA 1.010 1.001 - 1.035 [facility] Urine specimen (specimen) 05/11/2008 12:56 PM CDT 05/11/2008 12:56 PM CDT us Authorized P Er POINT OF CARE TESTING Final Resu lt Performing Organization Address [facility]/ZIP Co de Phone Number [facility] CLIA# [id number] [address] [place] [address] * POC URINALYSIS DIPSTICK (05/11/2008 12:56 PM CDT) CLARITY UA Clear [facility] PROTEIN UA Negative Negative [facility] BLOOD UA Negative Negative [facility] LEUKOCYTE ESTERASE UA Negative Negative [facility] UROBILINOGEN UA Normal Normal [facility] SPECIFIC GRAVITY UA 1.010 1.001 - 1.030 [facility] GLUCOSE UA Negative Negative [facility] COLOR UA Yellow [facility] BILIRUBIN UA Negative Negative [facility] NITRITE UA Negative Negative [facility] PH UA 5.0 5.0 - 8.0 [facility] KETONES UA Negative Negative [facility] Urine specimen (specimen) 05/11/2008 12:56 PM CDT 05/11/2008 12:56 PM CDT us Authorized P Er POINT OF CARE TESTING Final Resu lt Performing Organization Address [facility]/ZIP Co de Phone Number [facility] CLIA# [id number] [address] [place] [address] * COMPREHENSIVE METABOLIC PANEL (05/11/2008 12:35 PM CDT) CREATININE 0.77 0.51 - 0.95 mg/dL [facility] ALT 11 0 - 31 U/L [facility] SODIUM 138 135 - 145 mmol/L [facility] ALKALINE PHOSPHATASE 48 35 - 104 U/L [facility] CO2 24 22 - 30 mmol/L [facility] BILIRUBIN TOTAL 0.4 0.2 - 1.0 mg/dL [facility] POTASSIUM 3.5 3.5 - 4.9 mmol/L [facility] TOTAL PROTEIN 7.0 6.3 - 8.6 g/dL [facility] GLUCOSE 86 65 - 99 mg/dL [facility] AST 18 12 - 32 U/L [facility] BUN 7 6 - 20 mg/dL [facility] CALCIUM 8.6 8.4 - 10.2 mg/dL [facility] ALBUMIN 4.4 3.4 - 4.8 g/dL [facility] CHLORIDE 104 96 - 108 mmol/L [facility] GFR, >60 >=60 mL/min/1.7 sq meter [facility] GFR >60 >=60 mL/min/1.7 sq meter [facility] Comment: Modification of Diet in Renal Disease (MDRD) study formula. Estimated GFR rate interpretative information for both Americans and non- Americans is available on the [facility] Intranet at: [email or web address] Select: Lab Policies and Procedures Select: Reference Ranges - GFR Blood specimen (specimen) 05/11/2008 12:35 PM CDT 05/11/2008 12:50 PM CDT us Authorized P Er CHEMISTRY ORDERABLES Edited [facility] CLIA# [id number] [address], [place] [address] * CBC WITH DIFFERENTIAL (05/11/2008 12:35 PM CDT) RDW 12.0 11.5 - 14.5 % [facility] MCV 93.5 82.0 - 99.0 fL [facility] RBC 4.48 3.90 - 4.90 M/uL [facility] MCH 32.1 27.2 - 32.6 pg [facility] HEMOGLOBIN 14.4 11.8 - 14.8 g/dL [facility] RDW-STDEV 40.8 37.1 - 48.7 fL [facility] PLATELETS 178 140 - 350 K/uL [facility] MCHC 34.4 31.5 - 35.5 % [facility] HEMATOCRIT 41.9 35.5 - 44.0 % [facility] WBC 8.1 4.0 - 9.8 K/uL [facility] MPV 10.6 9.3 - 12.4 fL [facility] MONOCYTES 9 3 - 13 % [facility] MONOCYTE ABSOLUTE 0.71 0.10 - 1.30 K/uL [facility] NEUTROPHILS 58 45 - 70 % [facility] NEUTROPHIL ABSOLUTE 4.71 1.90 - 7.00 K/uL [facility] EOSINOPHILS 3 0 - 7 % [facility] EOSINOPHIL ABSOLUTE 0.20 0.00 - 0.70 K/uL [facility] LYMPHOCYTES 30 16 - 45 % [facility] LYMPHOCYTE ABSOLUTE 2.40 0.70 - 4.50 K/uL [facility] BASOPHILS 1 0 - 2 % [facility] BASOPHILS ABSOLUTE 0.05 0.00 - 0.20 K/uL [facility] Blood specimen (specimen) 05/11/2008 12:35 PM CDT 05/11/2008 12:50 PM CDT us Authorized P Er HEMATOLOGY ORDERABLES Edited [facility] CLIA# [id number] [address] [place] [address] documented in this encounter Visit Diagnoses Not on filedocumented in this encounter Care Teams Curing Finisher Relationship Specialty Start Date End Date Ria Garnica MD PCP - General Family Practice 08/05/19 documented as of this encounter
--- OUTSIDE RECORDS SUMMARY | 2025-04-08 10:37 | XMS_ITS | Encounter Summary ---
Author Organization [facility] Address [address] [place] [address] Care Team Providers Care Production Department Supervisor Name Role Phone Ria Garnica MD Primary Care Pro vider Encounter Details Date Type Department Care Team (Latest Contact Info) Description 08/28/2006 Inpatient Historical HIS PATIENT IN A BED Caleb Royal MD [address] [facility] [address] [place] [address] Major Depressive Disorder, Single Episode, Unspecified (Primary Dx) Social History Tobacco Use Types Packs/Day Years Used Date Smoking Tobacco: Never Assessed Comments Unknown Sex and Gender Information Value Date Recorded Sex Assigned at Not on file 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 Gender Identity Not on file Sexual [...] ORDERABLES Final Resul t Performing Organization Address City/[facility] Phone Number INTERFACE SYSTEM Refer to clinic/hospital department * (ABNORMAL) ACETAMINOPHEN LEVEL (08/29/2006 5:15 AM CDT) ACETAMINOPHEN LEVEL <0.7(L) 10.0 - 20.0 ug/mL INTERFACE SYSTEM 08/29/2006 5:15 AM CDT Caleb Royal MD CHEMISTRY ORDERABLES Final Resul t Performing Organization Address [facility] Phone Number INTERFACE SYSTEM Refer to [...] URINE ORDERABLES Final Result Performing Organization Address City/[facility] Phone Number INTERFACE SYSTEM Refer to clinic/hospital department documented in this encounter Visit Diagnoses Diagnosis Major depressive disorder, single episode, unspecified- Primary documented in this encounter Care Teams Production Department Supervisor Relationship Specialty Start Date End Date Ria Garnica MD PCP - General Family Practice 08/05/19 documented as of this encounter
--- OUTSIDE RECORDS SUMMARY | 2025-04-08 10:37 | XMS_ITS | Encounter Summary ---
Author Organization [facility] Address [address] [place] [address] Phone Care Team Providers Care Food And Beverage Order Clerk Name Role Phone Trey Araiza MD Primary Care Provider [phone]- [phone] Shady Solis MD Primary Care Provider [phone] Wilfredo Grier DO Primary Care Provider Encounter Details Date Type Department Care Team (Late st Contact Info) Description 03/18/2018 Orders Only [facility] ProviderHao MD [address] [place] [address] Social History Tobacco Use Types Packs/Day Years Used Date Smoking Tobacco: Never Alcohol Use Standard Drinks/Week Comments No 0 (1 standard drink = 0.6 oz pur e alcohol) Comments No Sex and Gender Information Value Date Recorded Sex Assigned at Not on file Legal Sex Female 11:13 AM PUBLIC RELATIONS ANALYST Gender Identity Not on file Sexual [...] on filedocumented in this encounter Care Teams Food And Beverage Order Clerk Relationship Specialty Start Date End Date Trey Araiza MD [address] [place] [address] PCP - General 02/04/17 06/20/21 Shady Solis MD [address] [place] [address] PCP - General Internal Medicine 06/21/21 07/18/24 Wilfredo Grier DO [address] [place] [address] PCP - General Family Medicine 07/19/24 documented as of this encounter
--- OUTSIDE RECORDS SUMMARY | 2025-04-08 10:37 | XMS_ITS | Clinical Summary ---
Author Organization [facility] Address [address] [place] [address] Care Team Providers Care Agricultural Sciences Professor Name Role Phone Shady Solis MD Primary Care Provider [phone] Social History Tobacco Use Types Packs/Day Years [...] patient's age to complete this topic Insurance [facility] C/O PROVIDER [employer] [id number] Care Teams Agricultural Sciences Professor Relationship Specialty Start Date End Date Shayd Solis MD [address] [place] [address] PCP - General INTERNAL MEDICINE 05/09/20
--- OUTSIDE RECORDS SUMMARY | 2025-04-08 10:37 | XMS_ITS | Encounter Summary ---
Author Organization [facility] Address [address] [place] [address] Care Team Providers Care Edge Plugger Name Role Phone Ria Garnica MD Primary Care Pro vider Encounter Details Date Type Department Care Team (Late st Contact Info) Description 06/01/2008 Outpatient Historical HIS IMG-LAB [facility] Abiodun Owen MD [address] 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 Gender Identity Not on file Sexual Orientation [...] PM CDT Narrative 06/01/2008 3:29 PM CDT [address] [address] Admit Date: 06/01/2008 RONDA CAMACHO Sex: F Admit Prov: ABIODUN OWEN Date: 1980 Primary Care Prov: ABIODUN OWEN CMRN: [id number] [id number] Ordering Prov: N/A Accession Number: [id number] Interpretation EXAMINATION: ULTRASOUND OF THE PELVIS Clinical [...] 15:28 Procedure Note Provider, Historical - 06/01/[address] [address] Admit Date: 06/01/2008 RONDA CAMACHO Sex: F Admit Prov: ABIODUN OWEN Date: 1980 Primary Care Prov: ABIODUN OWEN CMRN: [id number] [id number] IM[facility] Ordering Prov: N/A Interpretation EXAMINATION: [...] organs documented in this encounter Care Teams Edge Plugger Relationship Specialty Start Date End Date Ria Garnica MD PCP - General Family Practice 08/05/19 documented as of this encounter
--- OUTSIDE RECORDS SUMMARY | 2025-04-08 10:37 | XMS_ITS | Referral Summary ---
Author Organization [facility] Address [address] [place] [address] Care Team Providers Care Mri Specialist Name Role Phone Wilfredo Grierrish Primary Care Provider Allergies Active Allergy Reactions Criticality Noted Date Comments Prochlorperazine Nausea And Vomiting Medium 08/11/2013 Also facial twitching Medications multivit vjodyfmw-nelg-R A-calcium (THERA-M) 9 mg iron-400 mcg tabletIndicatio [...] -GBS: negative -Contraception: -Peds: FP physician in [place] -: [place] -Flu: Declines Advanced maternal age, primi in [...] on file Legal Sex Female 11:13 AM HOUSEKEEPING ASSISTANT Gender Identity Not on file Sexual Orientation Not on file 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 Not on file Not on file Not on file Last Filed Vital Signs Vital Sign Reading Time Taken Comments Blood Pressure 108/78 08/13/2024 10:41 AM CDT Pulse 74 01/27/2023 11:30 PM HOUSEKEEPING ASSISTANT Temperature 36.5 C (97.7 F) 01/27/2023 7:33 PM HOUSEKEEPING ASSISTANT Respiratory Rate 18 01/27/2023 7:33 PM HOUSEKEEPING ASSISTANT Oxygen Saturation 97% 01/27/2023 11:30 PM HOUSEKEEPING ASSISTANT Inhaled Oxygen Concentration - - Weight 75.3 [...] CDT 08/12/2023 10:50 AM CDT Narrative PATHOLOGY [facility] - 08/18/2023 1:01 PM CDT EPIC results best viewed via link to PDF [address] [address] Tele: Mara Mckeon MD - Woodworking Machinist CYTOLOGY REPORT Note to Patients: This report [...] the details. Patient Name: RONDA NUNEZ Address: [address] [place] [address]- Gender: F : 1980 (Age: 43) Service: Location: Hospital #: [id number] Patient [place] [facility] [place] Taken: 08/08/2023 Reported: 08/18/2023 [...] LAB CYTOLOGY ORDERABLE S Final Result PATHOLOGY [facility] Laboratory Receiving [address] [place] [address] * Hepatitis C antibody (05/28/2017 2:04 PM CDT) Hep C Ab <0.1 0.0 - 0.9 s/co ratio [facility] - 01 Comment: Negative: < 0.8 Indeterminate: 0.8 - 0.9 Positive: > 0.9 The CDC recommends that a positive HCV antibody result be followed up with a HCV Nucleic Acid Amplification test ([id number]). Blood specimen (specimen) 05/28/2017 2:04 PM CDT 05/28/2017 Narrative [facility] - 05/30/2017 2:06 AM CDT Performed at: - [facility] [id number] Speech Scientist: Catalino Fleming PhD, Phone: [phone] us Jenny Garces MD LAB MICROBIOLOGY - GEN ERAL ORDERABLES Final Result [facility] - from Last 3 Months or Most Recently Relevant to Health Maintenance Insurance [facility] Member Subscriber Plan / Payer (Ef fective 2021-Present) Name:Ronda Nunez Relation to Subscriber:Self Name:Ronda Nunez Payer ID:[id number] (NAIC) Group ID:Not on file Type:MEDICAID RISK OTHER Address: [address] [place], [place] [id number] [place] [address] [facility] Care Teams Mri Specialist Relationship Specialty Start Date End Date Wilfredo Grier DO [address] [place] [address] PCP - General Family Medicine 07/19/24
--- OUTSIDE RECORDS SUMMARY | 2025-04-08 10:37 | XMS_ITS | Clinical Summary ---
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 Gender Identity Not on file Sexual Orientation Not on file Occupation Industry Job Start Date Job End Date Not on file Not on file Not on file Not on file Last Filed Vital Signs Vital Sign Reading Time Taken Comments Blood Pressure 105/71 10/08/2019 11:36 AM ELECTRICAL WIRING LINEMAN Pulse 73 10/08/2019 11:36 AM ELECTRICAL WIRING LINEMAN Temperature 36.3 C (97.4 F) 10/08/2019 11:25 AM ELECTRICAL WIRING LINEMAN Respiratory Rate 22 10/08/2019 11:36 AM ELECTRICAL WIRING LINEMAN Oxygen Saturation 98% 10/08/2019 11:36 AM ELECTRICAL WIRING LINEMAN Inhaled Oxygen Concentration - - Weight 82.2 kg (181 lb 3.2 oz) 10/08/2019 10:07 AM ELECTRICAL WIRING LINEMAN Height 170.2 cm (5' 7 ) 10/08/2019 10:07 AM ELECTRICAL WIRING LINEMAN Body Mass Index 28.38 10/08/2019 10:07 AM ELECTRICAL WIRING LINEMAN Plan of Treatment Health Maintenance Due Date Last Done Comments DTAP/TDAP/TD VACCINES (1 - Tdap) 2000 HEPATITIS B VACCINES (1 of 3 - 19+ 3-dose series) 2000 HPV/Cotest (21-29) 2002 HPV/Cotest (30-65) 2011 INFLUENZA VACCINE (#1) 2024 BREAST CANCER SCREENING 08/13/2025 08/13/20 24, 08/13/2024, 07/28/2023, Additional history exists Preventative Visit-Managed Medicaid 08/14/2025 08/13/2024, 08/08/2023, 08/07/2022 CERVICAL CANCER SCREENING 08/08/2026 PAP SMEAR 08/08/2026 08/08/2023 HPV VACCINES Aged Out No longer eligi ble based on patient's age to complete this topic Insurance MEDICAID [place] Advance Directives For more information, please contact: [phone] * Full Code (Latest Code Status on File) Date Activated Date Inactivated Comments 08/09/2013 9:47 PM 08/11/2013 4:12 PM * Full Code Date Activated Date Inactivated Comments 08/09/2013 7:29 PM 08/09/2013 9:47 PM * Full Code Date Activated Date Inactivated Comments 05/24/2010 12:12 PM 05/27/2010 2:13 PM Care Teams Senior Software Quality Engineer Relationship Specialty Start Date End Date Ria Garnica MD PCP - General Family Practice 08/05/19
--- OUTSIDE RECORDS SUMMARY | 2025-04-08 10:37 | XMS_ITS | Clinical Summary ---
Author Organization [facility] Address [address] [place] [address] Care Team Providers Care Web Press Operator Helper Offset Name Role Phone Cherrie Wilfredo Ulrichrish Primary Care Provider Allergies Active Allergy Reactions Criticality Noted Date Comments Prochlorperazine Nausea And Vomiting Medium 08/11/2013 Also facial twitching Medications multivit bmmufwia-dnna-R A-calcium (THERA-M) 9 mg iron-400 mcg tabletIndicatio [...] -GBS: negative -Contraception: -Peds: FP physician in [place] -: [place] -Flu: Declines Advanced maternal age, [...] on file Legal Sex Female 11:13 AM WEIGHT TESTER Gender Identity Not on file Sexual Orientation Not on file 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 Patient Name: RONDA NUNEZ Address: [address] [place] [address]- Gender: F : 1980 (Age: 43) Service: Location: Hospital #: [id number] Patient Type: [facility] SPECIMEN Taken: 08/08/2023 Reported: [...] ORDERABLE S Final Result Performing Organization Address City/[facility] Co de Phone Number PATHOLOGY [facility] Laboratory Receiving [address] [place] [address] * Hepatitis C antibody (05/28/2017 2:04 PM CDT) Hep C Ab <0.1 0.0 - 0.9 s/co ratio [facility] - 01 Comment: Negative: < 0.8 Indeterminate: 0.8 - 0.9 Positive: > 0.9 The CDC recommends that a positive HCV antibody result be followed up with a HCV Nucleic Acid Amplification test ([id number]). Blood specimen (specimen) 05/28/2017 2:04 PM CDT 05/28/2017 Narrative [facility] - 05/30/2017 2:06 AM CDT Performed at: [address] [id number] Precision Honing Machine Operator: Catalino Fleming PhD, Phone: [phone] Jenny Garces MD LAB MICROBIOLOGY - GEN ERAL ORDERABLES Final Result Performing Organization Address City/[facility] de Phone Number [facility] - 01 from Last 3 Months or Most Recently Relevant to Health Maintenance Insurance [facility] Care Teams Web Press Operator Helper Offset Relationship Specialty Start Date End Date Wilfredo Grier DO [address] [place] [address] PCP - General Family Medicine 07/19/24
--- OUTSIDE RECORDS SUMMARY | 2025-04-08 10:37 | XMS_ITS | Encounter Summary ---
Author Organization [facility] Address [address] [place] [address] Care Team Providers Care Enhanced Environmental Operator Name Role Phone Ria Garnica MD Primary Care Pro vider Encounter Details Date Type Department Care Team (Late st Contact Info) Description 05/25/2008 Outpatient Historical HIS IMG[facility] Abiodun Owen MD [address] [facility] [address] [place] [address] Unspecified Symptom Associated with Female Genital Organs Social History Tobacco Use Types Packs/Day Years Used Date Smoking Tobacco: Never Assessed Comments No Sex and Gender Information Value Date Recorded Sex Assigned at Not on file Legal Sex Female 4:38 AM TELEPHONE SUPERVISOR Gender Identity Not on file Sexual Orientation Not on file documented as of this encounter Plan of Treatment Not on file documented as of this encounter Visit Diagnoses Diagnosis Unspecified symptom associated with female genital organs documented in this encounter Care Teams Enhanced Environmental Operator Relationship Specialty Start Date End Date Ria Garnica MD PCP - General Family Practice 08/05/19 documented as of this encounter
--- OUTSIDE RECORDS SUMMARY | 2025-04-08 10:37 | XMS_ITS | Encounter Summary ---
Author Organization [facility] Address [address] [place] [address] Phone Care Team Providers Care Manager E Learning Name Role Phone Trey Araiza MD Primary Care Provider [phone]- [phone] Shady Solis MD Primary Care Provider [phone] Wilfredo Grier DO Primary Care Provider Encounter Details Date Type Department Care Team (Late st Contact Info) Description 01/27/2018 Orders Only [facility] ProviderHao MD [address] [place] [address] Social History Tobacco Use Types Packs/Day Years Used Date Smoking Tobacco: Never Alcohol Use Standard Drinks/Week Comments No 0 (1 standard drink = 0.6 oz pur e alcohol) Comments No Sex and Gender Information Value Date Recorded Sex Assigned at Not on file Legal Sex Female 11:13 AM TOPSTITCHER LOCKSTITCH Gender Identity Not on file Sexual Orientation Not on file documented as of this encounter Plan of Treatment Not on file documented as of this encounter Procedures Procedure Name Priority Date/Time Associated Diagnosis Comments CYTOLOGY 01/27/2018 12:00 AM TOPSTITCHER LOCKSTITCH documented in this encounter Results * CYTOLOGY (01/27/2018 12:00 AM TOPSTITCHER LOCKSTITCH) Narrative 01/27/2018 12:00 AM TOPSTITCHER LOCKSTITCH Ordered by an unspecified provider. us Historical Provider LAB CYTOLOGY ORDERABLES F inal Result documented in this encounter Visit Diagnoses Not on filedocumented in this encounter Care Teams Manager E Learning Relationship Specialty Start Date End Date Trey Araiza MD [address] [place] [address] PCP - General 02/04/17 06/20/21 Shady Solis MD [address] [place] [address] PCP - General Internal Medicine 06/21/21 07/18/24 Wilfredo Grier DO [address] [place] [address] PCP - General Family Medicine 07/19/24 documented as of this encounter
== END 2025-04-08 10:34 | disposition home or self-care (01) ==
LOC: CHSIMG 10:34
PROVIDERS: PCP Family Medicine; Visit Provider Nurse Practitioner Family
DX: R10.31 Right lower quadrant pain (principal); R10.819 Abdominal tenderness, unspecified site; R93.89 Abnormal findings on diagnostic imaging of other specified body structures
CPT/HCPCS: 76856

== ENCOUNTER 2025-04-12 11:04 | Outpatient (CLI) | payer OTHER, SELFPAY ==
[2025-04-12 11:15] LABS: Hematocrit 40.5 % (35.0-49.0); Hemoglobin 13.3 g/dL (12.0-15.0); Mean Corpuscular HGB Conc 32.8 g/dL (32-36); Mean Corpuscular Hemoglobin 30.5 pg (27.0-31.0); Mean Corpuscular Volume 92.9 fL (78.0-102.0); Mean Platelet Volume 9.6 fl (9.2-11.8); Platelet Count Result 218 K/mm3 (150-420); Red Blood Count 4.36 M/mm3 (4.20-5.40); Red Cell Distribution Width 11.9 % (11.6-14.4); White Blood Count 7.9 K/mm3 (4.8-10.8)
--- OUTSIDE RECORDS SUMMARY | 2025-04-12 11:27 | XMS_ITS | Encounter Summary ---
Author Organization [facility] Address 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 Gender Identity Not on file Sexual [...] PM CDT) , URINE POC Negative Negative [facility] SPECIFIC GRAVITY UA 1.010 1.001 - 1.035 [facility] Urine specimen (specimen) 05/11/2008 12:56 PM CDT 05/11/2008 12:56 PM CDT us Authorized P Er POINT OF CARE TESTING Final Resu lt Performing Organization Address [facility]/ZIP Co de Phone Number [facility] CLIA# [id number] [address] [place] [address] * POC URINALYSIS DIPSTICK (05/11/2008 12:56 PM CDT) CLARITY UA Clear [facility] PROTEIN UA Negative Negative [facility] BLOOD UA Negative Negative [facility] LEUKOCYTE ESTERASE UA Negative Negative [facility] UROBILINOGEN UA Normal Normal [facility] SPECIFIC GRAVITY UA 1.010 1.001 - 1.030 [facility] GLUCOSE UA Negative Negative [facility] COLOR UA Yellow [facility] BILIRUBIN UA Negative Negative [facility] NITRITE UA Negative Negative [facility] PH UA 5.0 5.0 - 8.0 [facility] KETONES UA Negative Negative [facility] Urine specimen (specimen) 05/11/2008 12:56 PM CDT 05/11/2008 12:56 PM CDT us Authorized P Er POINT OF CARE TESTING Final Resu lt Performing Organization Address [facility]/ZIP Co de Phone Number [facility] CLIA# [id number] [address] [place] [address] * COMPREHENSIVE METABOLIC PANEL (05/11/2008 12:35 PM CDT) CREATININE 0.77 0.51 - 0.95 mg/dL [facility] ALT 11 0 - 31 U/L [facility] SODIUM 138 135 - 145 mmol/L [facility] ALKALINE PHOSPHATASE 48 35 - 104 U/L [facility] CO2 24 22 - 30 mmol/L [facility] BILIRUBIN TOTAL 0.4 0.2 - 1.0 mg/dL [facility] POTASSIUM 3.5 3.5 - 4.9 mmol/L [facility] TOTAL PROTEIN 7.0 6.3 - 8.6 g/dL [facility] GLUCOSE 86 65 - 99 mg/dL [facility] AST 18 12 - 32 U/L [facility] BUN 7 6 - 20 mg/dL [facility] CALCIUM 8.6 8.4 - 10.2 mg/dL [facility] ALBUMIN 4.4 3.4 - 4.8 g/dL [facility] CHLORIDE 104 96 - 108 mmol/L [facility] GFR, >60 >=60 mL/min/1.7 sq meter [facility] GFR >60 >=60 mL/min/1.7 sq meter [facility] Comment: Modification of Diet in Renal Disease (MDRD) study formula. Estimated GFR rate interpretative information for both Americans and non- Americans is available on the [facility] Intranet at: [email or web address] Select: Lab Policies and Procedures Select: Reference Ranges - GFR Blood specimen (specimen) 05/11/2008 12:35 PM CDT 05/11/2008 12:50 PM CDT us Authorized P Er CHEMISTRY ORDERABLES Edited [facility] CLIA# [id number] [address] [place], [place] [address] * CBC WITH DIFFERENTIAL (05/11/2008 12:35 PM CDT) RDW 12.0 11.5 - 14.5 % [facility] MCV 93.5 82.0 - 99.0 fL [facility] RBC 4.48 3.90 - 4.90 M/uL [facility] MCH 32.1 27.2 - 32.6 pg [facility] HEMOGLOBIN 14.4 11.8 - 14.8 g/dL [facility] RDW-STDEV 40.8 37.1 - 48.7 fL [facility] PLATELETS 178 140 - 350 K/uL [facility] MCHC 34.4 31.5 - 35.5 % [facility] HEMATOCRIT 41.9 35.5 - 44.0 % [facility] WBC 8.1 4.0 - 9.8 K/uL [facility] MPV 10.6 9.3 - 12.4 fL [facility] MONOCYTES 9 3 - 13 % [facility] MONOCYTE ABSOLUTE 0.71 0.10 - 1.30 K/uL [facility] NEUTROPHILS 58 45 - 70 % [facility] NEUTROPHIL ABSOLUTE 4.71 1.90 - 7.00 K/uL [facility] EOSINOPHILS 3 0 - 7 % [facility] EOSINOPHIL ABSOLUTE 0.20 0.00 - 0.70 K/uL [facility] LYMPHOCYTES 30 16 - 45 % [facility] LYMPHOCYTE ABSOLUTE 2.40 0.70 - 4.50 K/uL [facility] BASOPHILS 1 0 - 2 % [facility] BASOPHILS ABSOLUTE 0.05 0.00 - 0.20 K/uL [facility] Blood specimen (specimen) 05/11/2008 12:35 PM CDT 05/11/2008 12:50 PM CDT us Authorized P Er HEMATOLOGY ORDERABLES Edited [facility] CLIA# [id number] [address] [place] [address] documented in this encounter Visit Diagnoses Not on filedocumented in this encounter Care Teams Case Fitter Relationship Specialty Start Date End Date Ria Garnica MD PCP - General Family Practice 08/05/19 documented as of this encounter
--- OUTSIDE RECORDS SUMMARY | 2025-04-12 11:27 | XMS_ITS | Referral Summary ---
Author Organization [facility] Address [address] [place] [address] Care Team Providers Care Clinical Nutritionist Name Role Phone Wilfredo Grierrish Primary Care Provider Allergies Active Allergy Reactions Criticality Noted Date Comments Prochlorperazine Nausea And Vomiting Medium 08/11/2013 Also facial twitching Medications multivit lgduwgbm-lekq-M A-calcium (THERA-M) 9 mg iron-400 mcg tabletIndicatio [...] -GBS: negative -Contraception: -Peds: FP physician in [place] -: [place] -Flu: Declines Advanced maternal age, [...] on file Legal Sex Female 11:13 AM RN VISITING Gender Identity Not on file Sexual Orientation Not on file 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 on file Not on file Not on file Last Filed Vital Signs Vital Sign Reading Time Taken Comments Blood Pressure 108/78 08/13/2024 10:41 AM CDT Pulse 74 01/27/2023 11:30 PM RN VISITING Temperature 36.5 C (97.7 F) 01/27/2023 7:33 PM RN VISITING Respiratory Rate 18 01/27/2023 7:33 PM RN VISITING Oxygen Saturation 97% 01/27/2023 11:30 PM RN VISITING Inhaled Oxygen Concentration - - Weight 75.3 [...] CDT 08/12/2023 10:50 AM CDT Narrative PATHOLOGY [facility] - 08/18/2023 1:01 PM CDT EPIC results best viewed via link to PDF [address] [address] Tele: Mara Mckeon MD - Electrical Lineworker CYTOLOGY REPORT Note to Patients: This report [...] the details. Patient Name: RONDA NUNEZ Address: [address] [place] [address]- Gender: F : 1980 (Age: 43) Service: Location: Hospital #: [id number] Patient Type: [facility] SPECIMEN Taken: 08/08/2023 Reported: 08/18/2023 Physician(s): Jenny [...] LAB CYTOLOGY ORDERABLE S Final Result PATHOLOGY [facility] Laboratory [address] [place] [address] * Hepatitis C antibody (05/28/2017 2:04 PM CDT) Hep C Ab <0.1 0.0 - 0.9 s/co ratio [facility] - 01 Comment: Negative: < 0.8 Indeterminate: 0.8 - 0.9 Positive: > 0.9 The CDC recommends that a positive HCV antibody result be followed up with a HCV Nucleic Acid Amplification test ([id number]). Blood specimen (specimen) 05/28/2017 2:04 PM CDT 05/28/2017 Narrative [facility] - 05/30/2017 2:06 AM CDT Performed at: - [facility] [id number] Cigarette Tipper: Catalino Fleming PhD, Phone: [phone] us Jenny Garces MD LAB MICROBIOLOGY - GEN ERAL ORDERABLES Final Result [facility] - from Last 3 Months or Most Recently Relevant to Health Maintenance Insurance [facility] Member Subscriber Plan / Payer (Ef fective 2021-Present) Name:Ronda Nunez Relation to Subscriber:Self Name:Ronda Nunez Payer ID:[id number] (NAIC) Group ID:Not on file Type:MEDICAID RISK OTHER Address: [address] [place], [place] [id number] [place] [address] [facility] Care Teams Clinical Nutritionist Relationship Specialty Start Date End Date Wilfredo Grier DO [address] [place] [address] PCP - General Family Medicine 07/19/24
--- OUTSIDE RECORDS SUMMARY | 2025-04-12 11:27 | XMS_ITS | Clinical Summary ---
Author Organization [facility] Address [address] [place] [address] Care Team Providers Care Hvac Designer Name Role Phone Wilfredo Grierrish Primary Care Provider Allergies Active Allergy Reactions Criticality Noted Date Comments Prochlorperazine Nausea And Vomiting Medium 08/11/2013 Also facial twitching Medications multivit aodzgnwg-vlut-N A-calcium (THERA-M) 9 mg iron-400 mcg tabletIndicatio [...] -GBS: negative -Contraception: -Peds: FP physician in [place] -: Tereso -Flu: Declines Advanced maternal age, [...] on file Legal Sex Female 11:13 AM LIFE SKILLS 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 Gender Identity Not on file Sexual Orientation Not on file 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 Not on file Not on file Not [...] AM CDT Pulse 74 01/27/2023 11:30 PM LIFE SKILLS CONSULTANT Temperature 36.5 C (97.7 F) 01/27/2023 7:33 PM LIFE SKILLS CONSULTANT Respiratory Rate 18 01/27/2023 7:33 PM LIFE SKILLS CONSULTANT Oxygen Saturation 97% 01/27/2023 11:30 PM LIFE SKILLS CONSULTANT Inhaled Oxygen Concentration - - Weight 75.3 [...] CDT 08/12/2023 10:50 AM CDT Narrative [facility] - 08/18/2023 1:01 PM CDT EPIC results best viewed via link to PDF [id number] [place], [place] [address] Tele: Mara Mckeon MD - Fixture Builder CYTOLOGY REPORT Note to Patients: This report [...] the details. Patient Name: RONDA NUNEZ Address: [address] [place] [address]- Gender: F : 1980 (Age: 43) Service: Location: Hospital #: [id number] Patient Type: [facility] SPECIMEN Taken: 08/08/2023 Reported: 08/18/2023 Physician(s): Jenny [...] ORDERABLE S Final Result Performing Organization Address City/[facility] Co de Phone Number [facility]OLOG[facility] Laboratory Receiving [address] [place] [address] * Hepatitis C antibody (05/28/2017 2:04 PM CDT) Hep C Ab <0.1 0.0 - 0.9 s/co ratio [facility] - 01 Comment: Negative: < 0.8 Indeterminate: 0.8 - 0.9 Positive: > 0.9 The CDC recommends that a positive HCV antibody result be followed up with a HCV Nucleic Acid Amplification test ([id number]). Blood specimen (specimen) 05/28/2017 2:04 PM CDT 05/28/2017 Narrative [facility] - 05/30/2017 2:06 AM CDT Performed at: [address] [id number] Motion Picture Operator: Catalino Fleming PhD, Phone: [phone] Jenny Garces MD LAB MICROBIOLOGY - GEN ERAL ORDERABLES Final Result Performing Organization Address City/[facility] de Phone Number [facility] - 01 from Last 3 Months or Most Recently Relevant to Health Maintenance Insurance [facility] Care Teams Hvac Designer Relationship Specialty Start Date End Date Wilfredo Grier DO [address] [place] [address] PCP - General Family Medicine 07/19/24
--- OUTSIDE RECORDS SUMMARY | 2025-04-12 11:27 | XMS_ITS | Encounter Summary ---
Author Organization [facility] Address [address] [place] [address] Care Team Providers Care Rotary Drill Operator Helper Name Role Phone Ria Garnica MD Primary Care Pro vider Encounter Details Date Type Department Care Team (Late st Contact Info) Description 06/01/2008 Outpatient Historical HIS IMG-LAB [facility] Abiodun Owen MD 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 Gender Identity Not on file Sexual [...] PM CDT Narrative 06/01/2008 3:29 PM CDT [address] [address] Admit Date: 06/01/2008 RONDA CAMACHO Sex: F Admit Prov: ABIODUN OWEN Date: 1980 Primary Care Prov: ABIODUN OWEN CMRN: [id number] [id number] IMAGING SERVICES Ordering Prov: N/A Accession Number: [id number] Interpretation EXAMINATION: ULTRASOUND OF THE PELVIS Clinical [...] 15:28 Procedure Note Provider, Historical - 06/01/[address] [address] Admit Date: 06/01/2008 RONDA CAMACHO Sex: F Admit Prov: ABIODUN OWEN Date: 1980 Primary Care Prov: ABIODUN OWEN CMRN: [id number] [facility] [id number] IMAGING SERVICES Ordering Prov: N/A Interpretation EXAMINATION: [...] organs documented in this encounter Care Teams Rotary Drill Operator Helper Relationship Specialty Start Date End Date Ria Garnica MD PCP - General Family Practice 08/05/19 documented as of this encounter
--- OUTSIDE RECORDS SUMMARY | 2025-04-12 11:27 | XMS_ITS | Encounter Summary ---
Author Organization [facility] Address [address] [place] [address] Care Team Providers Care Record Retrieval Specialist Name Role Phone Ria Garnica MD Primary Care Pro vider Encounter Details Date Type Department Care Team (Latest Contact Info) Description 08/28/2006 Inpatient Historical HIS PATIENT IN A BED Caleb Royal MD 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 Gender Identity Not on file Sexual [...] ORDERABLES Final Resul t Performing Organization Address City/[facility] Phone Number INTERFACE SYSTEM Refer to clinic/hospital department * (ABNORMAL) ACETAMINOPHEN LEVEL (08/29/2006 5:15 AM CDT) ACETAMINOPHEN LEVEL <0.7(L) 10.0 - 20.0 ug/mL INTERFACE SYSTEM 08/29/2006 5:15 AM CDT Caleb Royal MD CHEMISTRY ORDERABLES Final Resul t Performing Organization Address [facility] Phone Number INTERFACE SYSTEM Refer to [...] URINE ORDERABLES Final Result Performing Organization Address City/[facility] Phone Number INTERFACE SYSTEM Refer to clinic/hospital department documented in this encounter Visit Diagnoses Diagnosis Major depressive disorder, single episode, unspecified- Primary documented in this encounter Care Teams Record Retrieval Specialist Relationship Specialty Start Date End Date Ria Garnica MD PCP - General Family Practice 08/05/19 documented as of this encounter
--- OUTSIDE RECORDS SUMMARY | 2025-04-12 11:27 | XMS_ITS | Encounter Summary ---
Author Organization [facility] Address [address] [place] [address] Care Team Providers Care Employee Benefits Attorney Name Role Phone Ria Garinca MD Primary Care Pro vider Encounter Details Date Type Department Care Team (Late st Contact Info) Description 05/25/2008 Outpatient Historical HIS IMG[facility]LAB [facility] Abiodun Owen MD [address] [place] [address] Unspecified Symptom Associated with Female Genital Organs Social History Tobacco Use Types Packs/Day Years Used Date Smoking Tobacco: Never Assessed Comments No Sex and Gender Information Value Date Recorded Sex Assigned at Not on file Legal Sex Female 4:38 AM PROSECUTING ATTORNEY Gender Identity Not on file Sexual Orientation Not on file documented as of this encounter Plan of Treatment Not on file documented as of this encounter Visit Diagnoses Diagnosis Unspecified symptom associated with female genital organs documented in this encounter Care Teams Employee Benefits Attorney Relationship Specialty Start Date End Date Ria Garnica MD PCP - General Family Practice 08/05/19 documented as of this encounter
--- OUTSIDE RECORDS SUMMARY | 2025-04-12 11:28 | XMS_ITS | Clinical Summary ---
Author Organization [facility] Address [address] [place] [address] Care Team Providers Care Manager Property Name Role Phone Shady Solis MD Primary Care Provider [phone] Social History Tobacco Use Types Packs/Day Years [...] patient's age to complete this topic Insurance [facility] C/O [employer] [id number] Care Teams Manager Property Relationship Specialty Start Date End Date Shady Solis MD [address] [place] [address] PCP - General INTERNAL MEDICINE 05/09/20
--- OUTSIDE RECORDS SUMMARY | 2025-04-12 11:28 | XMS_ITS | Clinical Summary ---
Author Organization [facility] Address [address] [facility] [place] [address] Phone Care Team Providers Care Golf Club Manager Name Role Phone Ria Garnica MD Primary [...] on file Legal Sex Female 4:38 AM MEDIA LAW FACULTY MEMBER Gender Identity Not on file Sexual Orientation Not on file Occupation Industry Job Start Date Job End Date Not on file Not on file Not on file Not on file Last Filed Vital Signs Vital Sign Reading Time Taken Comments Blood Pressure 105/71 10/08/2019 11:36 AM MEDIA LAW FACULTY MEMBER Pulse 73 10/08/2019 11:36 AM MEDIA LAW FACULTY MEMBER Temperature 36.3 C (97.4 F) 10/08/2019 11:25 AM MEDIA LAW FACULTY MEMBER Respiratory Rate 22 10/08/2019 11:36 AM MEDIA LAW FACULTY MEMBER Oxygen Saturation 98% 10/08/2019 11:36 AM MEDIA LAW FACULTY MEMBER Inhaled Oxygen Concentration - - Weight 82.2 kg (181 lb 3.2 oz) 10/08/2019 10:07 AM MEDIA LAW FACULTY MEMBER Height 170.2 cm (5' 7 ) 10/08/2019 10:07 AM MEDIA LAW FACULTY MEMBER Body Mass Index 28.38 10/08/2019 10:07 AM MEDIA LAW FACULTY MEMBER Plan of Treatment Health Maintenance Due Date Last Done Comments Pre-Diabetes and Diabetes Screening 1980 DTAP/TDAP/TD VACCINES (1 - Tdap) 2000 HEPATITIS B VACCINES (1 of 3 - 19+ 3-dose series) 2000 HPV/Cotest (21-29) 2002 HPV/Cotest (30-65) 2011 INFLUENZA VACCINE (#1) 2024 BREAST CANCER SCREENING 08/13/2025 08/13/20 24, 08/13/2024, 07/28/2023, Additional history exists CERVICAL CANCER SCREENING 08/08/2026 PAP SMEAR 08/08/2026 08/08/2023 HPV VACCINES Aged Out No longer eligi ble based on patient's age to complete this topic Insurance MEDICAID [place] Advance Directives For more information, please contact: [phone] * Full Code (Latest Code Status on File) Date Activated Date Inactivated Comments 08/09/2013 9:47 PM 08/11/2013 4:12 PM * Full Code Date Activated Date Inactivated Comments 08/09/2013 7:29 PM 08/09/2013 9:47 PM * Full Code Date Activated Date Inactivated Comments 05/24/2010 12:12 PM 05/27/2010 2:13 PM Care Teams Golf Club Manager Relationship Specialty Start Date End Date Ria Garnica MD PCP - General Family Practice 08/05/19
--- OUTSIDE RECORDS SUMMARY | 2025-04-12 11:28 | XMS_ITS | Encounter Summary ---
Author Organization [facility] Address [address] [place] [address] Phone Care Team Providers Care Recreational Director Name Role Phone Trey Araiza MD Primary Care Provider [phone]- [phone] Shady Solis MD Primary Care Provider [phone] Wilfredo Grier DO Primary Care Provider Encounter Details Date Type Department Care Team (Late st Contact Info) Description 03/18/2018 Orders Only [facility] ProviderHao MD [address] [place] [address] Social History Tobacco Use Types Packs/Day Years Used Date Smoking Tobacco: Never Alcohol Use Standard Drinks/Week Comments No 0 (1 standard drink = 0.6 oz pur e alcohol) Comments No Sex and Gender Information Value Date Recorded Sex Assigned at Not on file Legal Sex Female 11:13 AM BEAM DYER Gender Identity Not on file Sexual Orientation [...] on filedocumented in this encounter Care Teams Recreational Director Relationship Specialty Start Date End Date Trey Araiza MD [address] [place] [address] PCP - General 02/04/17 06/20/21 Shady Solis MD [address] [place] [address] PCP - General Internal Medicine 06/21/21 07/18/24 Wilfredo Grier DO [address] [place] [address] PCP - General Family Medicine 07/19/24 documented as of this encounter
--- OUTSIDE RECORDS SUMMARY | 2025-04-12 11:28 | XMS_ITS | Encounter Summary ---
Author Organization [facility] Address [address] [place] [address] Phone Care Team Providers Care Senior Cytotechnologist Name Role Phone Trey Araiza MD Primary Care Provider [phone]- [phone] Shady Solis MD Primary Care Provider [phone] Wilfredo Grier DO Primary Care Provider Encounter Details Date Type Department Care Team (Late st Contact Info) Description 01/27/2018 Orders Only [facility] ProviderHao MD [address] [place] [address] Social History Tobacco Use Types Packs/Day Years Used Date Smoking Tobacco: Never Alcohol Use Standard Drinks/Week Comments No 0 (1 standard drink = 0.6 oz pur e alcohol) Comments No Sex and Gender Information Value Date Recorded Sex Assigned at Not on file Legal Sex Female 11:13 AM CLOTH NAPPING SUPERVISOR Gender Identity Not on file Sexual Orientation Not on file documented as of this encounter Plan of Treatment Not on file documented as of this encounter Procedures Procedure Name Priority Date/Time Associated Diagnosis Comments CYTOLOGY 01/27/2018 12:00 AM CLOTH NAPPING SUPERVISOR documented in this encounter Results * CYTOLOGY (01/27/2018 12:00 AM CLOTH NAPPING SUPERVISOR) Narrative 01/27/2018 12:00 AM CLOTH NAPPING SUPERVISOR Ordered by an unspecified provider. us Historical Provider LAB CYTOLOGY ORDERABLES F inal Result documented in this encounter Visit Diagnoses Not on filedocumented in this encounter Care Teams Senior Cytotechnologist Relationship Specialty Start Date End Date Trey Araiza MD [address] [place] [address] PCP - General 02/04/17 06/20/21 Shady Solis MD [address] [place] [address] PCP - General Internal Medicine 06/21/21 07/18/24 Wilfredo Grier DO [address] [place] [address] PCP - General Family Medicine 07/19/24 documented as of this encounter
[2025-04-12 11:53] LABS: CRP < 0.5 mg/dL (<1.0); Lipase 231 U/L (23-300)
== END 2025-04-12 11:05 | disposition home or self-care (01) ==
LOC: CHSLAB 11:05
PROVIDERS: PCP Family Medicine; Visit Provider Nurse Practitioner Family
DX: R74.8 Abnormal levels of other serum enzymes (principal)
CPT/HCPCS: 36415; 83690; 85027; 86140

== ENCOUNTER 2025-09-09 13:05 | Outpatient (CLI) | payer OTHER, SELFPAY ==
[2025-09-14 16:08] LABS: B microti IgG <1:10 (Neg:<1:10); E. chaffeensis IgG Negative (Neg:<1:64)
[2025-09-14 20:08] LABS: F416-IgE Tri a 19(w-5 gliadin) <0.10 kU/L (Class 0)
== END 2025-09-09 13:06 | disposition home or self-care (01) ==
PROVIDERS: PCP Family Medicine; Visit Provider Family Medicine
DX: L50.9 Urticaria, unspecified (principal); W57.XXXA Bitten or stung by nonvenomous insect and other nonvenomous arthropods, initial encounter
CPT/HCPCS: 86003; 86618; 86666

== ENCOUNTER 2025-09-16 09:59 | Outpatient (CLI) | payer OTHER, SELFPAY ==
--- OUTSIDE RECORDS SUMMARY | 2025-09-16 10:35 | XMS_ITS | Encounter Summary ---
Author Organization [facility] Address 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 Gender Identity Not on file Sexual Orientation [...] PM CDT) , URINE POC Negative Negative [facility] SPECIFIC GRAVITY UA 1.010 1.001 - 1.035 [facility] Urine specimen (specimen) 05/11/2008 12:56 PM CDT 05/11/2008 12:56 PM CDT us Authorized P Er POINT OF CARE TESTING Final Resu lt Performing Organization Address [facility]/ZIP Co de Phone Number [facility] CLIA# [id number] [address] [place], [place] [address] * POC URINALYSIS DIPSTICK (05/11/2008 12:56 PM CDT) CLARITY UA Clear [facility] PROTEIN UA Negative Negative [facility] BLOOD UA Negative Negative [facility] LEUKOCYTE ESTERASE UA Negative Negative [facility] UROBILINOGEN UA Normal Normal [facility] SPECIFIC GRAVITY UA 1.010 1.001 - 1.030 [facility] GLUCOSE UA Negative Negative [facility] COLOR UA Yellow [facility] BILIRUBIN UA Negative Negative [facility] NITRITE UA Negative Negative [facility] PH UA 5.0 5.0 - 8.0 [facility] KETONES UA Negative Negative [facility] Urine specimen (specimen) 05/11/2008 12:56 PM CDT 05/11/2008 12:56 PM CDT us Authorized P Er POINT OF CARE TESTING Final Resu lt Performing Organization Address [facility]/ZIP Co de Phone Number [facility] CLIA# [id number] [address] [place] [address] * COMPREHENSIVE METABOLIC PANEL (05/11/2008 12:35 PM CDT) CREATININE 0.77 0.51 - 0.95 mg/dL [facility] ALT 11 0 - 31 U/L [facility] SODIUM 138 135 - 145 mmol/L [facility] ALKALINE PHOSPHATASE 48 35 - 104 U/L [facility] CO2 24 22 - 30 mmol/L [facility] BILIRUBIN TOTAL 0.4 0.2 - 1.0 mg/dL [facility] POTASSIUM 3.5 3.5 - 4.9 mmol/L [facility] TOTAL PROTEIN 7.0 6.3 - 8.6 g/dL [facility] GLUCOSE 86 65 - 99 mg/dL [facility] AST 18 12 - 32 U/L [facility] BUN 7 6 - 20 mg/dL [facility] CALCIUM 8.6 8.4 - 10.2 mg/dL [facility] ALBUMIN 4.4 3.4 - 4.8 g/dL [facility] CHLORIDE 104 96 - 108 mmol/L [facility] GFR, >60 >=60 mL/min/1.7 sq meter [facility] GFR >60 >=60 mL/min/1.7 sq meter [facility] Comment: Modification of Diet in Renal Disease (MDRD) study formula. Estimated GFR rate interpretative information for both Americans and non- Americans is available on the [facility] Intranet at: [email or web address] Select: Lab Policies and Procedures Select: Reference Ranges - GFR Blood specimen (specimen) 05/11/2008 12:35 PM CDT 05/11/2008 12:50 PM CDT us Authorized P Er CHEMISTRY ORDERABLES Edited [facility] CLIA# [id number] [address] [place], [place] [address] * CBC WITH DIFFERENTIAL (05/11/2008 12:35 PM CDT) RDW 12.0 11.5 - 14.5 % [facility] MCV 93.5 82.0 - 99.0 fL [facility] RBC 4.48 3.90 - 4.90 M/uL [facility] MCH 32.1 27.2 - 32.6 pg [facility] HEMOGLOBIN 14.4 11.8 - 14.8 g/dL [facility] RDW-STDEV 40.8 37.1 - 48.7 fL [facility] PLATELETS 178 140 - 350 K/uL [facility] MCHC 34.4 31.5 - 35.5 % [facility] HEMATOCRIT 41.9 35.5 - 44.0 % [facility] WBC 8.1 4.0 - 9.8 K/uL [facility] MPV 10.6 9.3 - 12.4 fL [facility] MONOCYTES 9 3 - 13 % [facility] MONOCYTE ABSOLUTE 0.71 0.10 - 1.30 K/uL [facility] NEUTROPHILS 58 45 - 70 % [facility] NEUTROPHIL ABSOLUTE 4.71 1.90 - 7.00 K/uL [facility] EOSINOPHILS 3 0 - 7 % [facility] EOSINOPHIL ABSOLUTE 0.20 0.00 - 0.70 K/uL [facility] LYMPHOCYTES 30 16 - 45 % [facility] LYMPHOCYTE ABSOLUTE 2.40 0.70 - 4.50 K/uL [facility] BASOPHILS 1 0 - 2 % [facility] BASOPHILS ABSOLUTE 0.05 0.00 - 0.20 K/uL [facility] Blood specimen (specimen) 05/11/2008 12:35 PM CDT 05/11/2008 12:50 PM CDT us Authorized P Er HEMATOLOGY ORDERABLES Edited [facility] CLIA# [id number] [address] [place] [address] documented in this encounter Visit Diagnoses Not on filedocumented in this encounter Care Teams Lumber Tripper Relationship Specialty Start Date End Date Ria Garnica MD PCP - General Family Practice 08/05/19 documented as of this encounter
--- OUTSIDE RECORDS SUMMARY | 2025-09-16 10:35 | XMS_ITS | Encounter Summary ---
Author Organization [facility] Address [address] [place] [address] Phone Care Team Providers Care Guide Cruise Name Role Phone Trey Araiza MD Primary Care Provider [phone]- [phone] Shady Solis MD Primary Care Provider [phone] Wilfredo Grier DO Primary Care Provider Encounter Details Date Type Department Care Team (Late st Contact Info) Description 01/27/2018 Orders Only [facility] ProviderHao MD [address] [place] [address] Social History Tobacco Use Types Packs/Day Years Used Date Smoking Tobacco: Never Alcohol Use Standard Drinks/Week Comments No 0 (1 standard drink = 0.6 oz pur e alcohol) Comments No Sex and Gender Information Value Date Recorded Sex Assigned at Not on file Legal Sex Female 11:13 AM LOTTERIES AGENT Gender Identity Not on file Sexual Orientation Not on file documented as of this encounter Plan of Treatment Not on file documented as of this encounter Procedures Procedure Name Priority Date/Time Associated Diagnosis Comments CYTOLOGY 01/27/2018 12:00 AM LOTTERIES AGENT documented in this encounter Results * CYTOLOGY (01/27/2018 12:00 AM LOTTERIES AGENT) Narrative 01/27/2018 12:00 AM LOTTERIES AGENT Ordered by an unspecified provider. us Historical Provider LAB CYTOLOGY ORDERABLES F inal Result documented in this encounter Visit Diagnoses Not on filedocumented in this encounter Care Teams Guide Cruise Relationship Specialty Start Date End Date Trey Araiza MD [address] [place] [address] PCP - General 02/04/17 06/20/21 Shady Solis MD [address] [place] [address] PCP - General Internal Medicine 06/21/21 07/18/24 Wilfredo Grier DO [address] [place] [address] PCP - General Family Medicine 07/19/24 documented as of this encounter
--- OUTSIDE RECORDS SUMMARY | 2025-09-16 10:35 | XMS_ITS | Clinical Summary ---
Author Organization [facility] Address [address] [facility] [place] [address] Phone Care Team Providers Care Gage Maker Name Role Phone Ria Garnica MD Primary [...] on file Legal Sex Female 4:38 AM DIRECTOR NETWORK DEVELOPMENT Gender Identity Not on file Sexual Orientation Not on file Occupation Industry Job Start Date Job End Date Not on file Not on file Not on file Not on file Last Filed Vital Signs Vital Sign Reading Time Taken Comments Blood Pressure 105/71 10/08/2019 11:36 AM DIRECTOR NETWORK DEVELOPMENT Pulse 73 10/08/2019 11:36 AM DIRECTOR NETWORK DEVELOPMENT Temperature 36.3 C (97.4 F) 10/08/2019 11:25 AM DIRECTOR NETWORK DEVELOPMENT Respiratory Rate 22 10/08/2019 11:36 AM DIRECTOR NETWORK DEVELOPMENT Oxygen Saturation 98% 10/08/2019 11:36 AM DIRECTOR NETWORK DEVELOPMENT Inhaled Oxygen Concentration - - Weight 82.2 kg (181 lb 3.2 oz) 10/08/2019 10:07 AM DIRECTOR NETWORK DEVELOPMENT Height 170.2 cm (5' 7) 10/08/2019 10:07 AM DIRECTOR NETWORK DEVELOPMENT Body Mass Index 28.38 10/08/2019 10:07 AM DIRECTOR NETWORK DEVELOPMENT Plan of Treatment Health Maintenance Due Date Last Done Comments DTAP/TDAP/TD VACCINES (1 - Tdap) 2000 HEPATITIS B VACCINES (1 of 3 - 19+ 3-dose series) 2000 HPV/Cotest (21-29) 2002 HPV VACCINES (1 - 3-dose SCD M series) 2008 HPV/Cotest (30-65) 2011 INFLUENZA VACCINE (#1) 2025 BREAST CANCER SCREENING 08/13/2025 08/13/20 24, 08/13/2024, 07/28/2023, Additional history exists CERVICAL CANCER SCREENING 08/08/2026 PAP SMEAR 08/08/2026 08/08/2023 Insurance MEDICAID [place] Advance Directives For more information, please contact: [phone] * Full Code (Latest Code Status on File) Date Activated Date Inactivated Comments 08/09/2013 9:47 PM 08/11/2013 4:12 PM * Full Code Date Activated Date Inactivated Comments 08/09/2013 7:29 PM 08/09/2013 9:47 PM * Full Code Date Activated Date Inactivated Comments 05/24/2010 12:12 PM 05/27/2010 2:13 PM Care Teams Gage Maker Relationship Specialty Start Date End Date Ria Garnica MD PCP - General Family Practice 08/05/19
--- OUTSIDE RECORDS SUMMARY | 2025-09-16 10:35 | XMS_ITS | Encounter Summary ---
Author Organization [facility] Address [address] [place] [address] Phone Care Team Providers Care Archeologist Name Role Phone Trey Araiza MD Primary Care Provider [phone]- [phone] Shady Solis MD Primary Care Provider [phone] Wilfredo Grier DO Primary Care Provider Encounter Details Date Type Department Care Team (Late st Contact Info) Description 03/18/2018 Orders Only [facility] ProviderHao MD [address] [place] [address] Social History Tobacco Use Types Packs/Day Years Used Date Smoking Tobacco: Never Alcohol Use Standard Drinks/Week Comments No 0 (1 standard drink = 0.6 oz pur e alcohol) Comments No Sex and Gender Information Value Date Recorded Sex Assigned at Not on file 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
--- OUTSIDE RECORDS SUMMARY | 2025-09-16 10:35 | XMS_ITS | Encounter Summary ---
Author Organization [facility] Address [address] [place] [address] Care Team Providers Care Concrete Fence Builder Name Role Phone Ria Garnica MD Primary Care Pro vider Encounter Details Date Type Department Care Team (Latest Contact Info) Description 08/28/2006 Inpatient Historical HIS PATIENT IN A BED Caleb Royal MD [address] [place] [address] Major Depressive Disorder, Single Episode, Unspecified (Primary Dx) Social History Tobacco Use Types Packs/Day Years Used Date Smoking Tobacco: Never Assessed Comments Unknown Sex and Gender Information Value Date Recorded Sex Assigned at Not on file Legal Sex Female 4:38 AM ANALYTICS INTERN Gender Identity Not on file Sexual Orientation [...] ORDERABLES Final Resul t Performing Organization Address City/[facility] Phone Number INTERFACE SYSTEM Refer to clinic/hospital department * (ABNORMAL) ACETAMINOPHEN LEVEL (08/29/2006 5:15 AM CDT) ACETAMINOPHEN LEVEL <0.7(L) 10.0 - 20.0 ug/mL INTERFACE SYSTEM 08/29/2006 5:15 AM CDT Caleb Royal MD CHEMISTRY ORDERABLES Final Resul t Performing Organization Address [facility] Phone Number INTERFACE SYSTEM Refer [...] URINE ORDERABLES Final Result Performing Organization Address City/[facility] Phone Number INTERFACE SYSTEM Refer to clinic/hospital department documented in this encounter Visit Diagnoses Diagnosis Major depressive disorder, single episode, unspecified- Primary documented in this encounter Care Teams Concrete Fence Builder Relationship Specialty Start Date End Date Ria Garnica MD PCP - General Family Practice 08/05/19 documented as of this encounter
--- OUTSIDE RECORDS SUMMARY | 2025-09-16 10:35 | XMS_ITS | Encounter Summary ---
Author Organization [facility] Address [address] [place] [address] Care Team Providers Care Vocational Education Professional Name Role Phone Ria Garnica MD Primary Care Pro vider Encounter Details Date Type Department Care Team (Late st Contact Info) Description 06/01/2008 Outpatient Historical HIS IMG-LAB [facility] Abiodun Owen MD [address] 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 Gender Identity Not on file Sexual Orientation [...] PM CDT Narrative 06/01/2008 3:29 PM CDT [address] [address] Admit Date: 06/01/2008 RONDA CAMACHO Sex: F Admit Prov: ABIODUN OWEN Date: 1980 Primary Care Prov: ABIODUN OWEN CMRN: [id number] [phone] IM[facility] Ordering Prov: N/A Accession Number: [id number] Interpretation EXAMINATION: ULTRASOUND OF THE PELVIS Clinical [...] 15:28 Procedure Note Provider, Historical - 06/01/[address] [address] Admit Date: 06/01/2008 RONDA CAMACHO Sex: F Admit Prov: ABIODUN OWEN Date: 1980 Primary Care Prov: ABIODUN OWEN CMRN: [id number] [facility] [phone] IM[facility]ING SERVICES Ordering Prov: N/A Interpretation EXAMINATION: [...] organs documented in this encounter Care Teams Vocational Education Professional Relationship Specialty Start Date End Date Ria Garnica MD PCP - General Family Practice 08/05/19 documented as of this encounter
--- OUTSIDE RECORDS SUMMARY | 2025-09-16 10:35 | XMS_ITS | Clinical Summary ---
Author Organization [facility] Address [address] [place] [address] Care Team Providers Care Plate Grainer Name Role Phone Wilfredo Grierrish Primary Care Provider Allergies Active Allergy Reactions Criticality Noted Date Comments Prochlorperazine Nausea And Vomiting Medium 08/11/2013 Also facial twitching Medications multivit tvxvufvr-eaoy-H A-calcium (THERA-M) 9 mg iron-400 mcg tabletIndicatio ns:Vitamin Deficiency Prevention Take 1 tablet by mouth daily Active zinc sulfate 50 mg zinc (220 mg) tablet Take 1 tablet (220 mg total) by mouth daily Active cyclobenzaprine (FLEXERIL) 10 mg tabletIndicatio ns:Acute pain of left shoulder Take 1 tablet (10 mg total) by mouth 3 (three) times a day as needed for muscle spasms 20 tablet 5 Active Additional Information Patient not taking.Reported on 08/15/2025 predniSONE (DELTASONE) 10 mg tabletIndicatio ns:Poison thuy dermatitis Take 4 tabs days 1&2, 3 tabs days 3 & 4, 2 tabs days 5 & 6, 1 tab days 7-10. 22 tablet 5 Active Active Problems Problem Noted Date Diagnosed [...] Encounters Date Type Department Care Team Description 08/23/2025 9:43 AM CDT - 08/23/2025 11:59 PM CDT Hospital Encounter [facility] at [address] [id number] Screening mammogram, encounter for Discharge Disposition: Discharge to home or self care 08/15/2025 11:00 AM CDT Office Visit [facility] at [address] [address] Margarita Mendez NP Poison thuy dermatitis (Primary Dx) 06/17/2025 2:00 PM CDT Office Visit [facility] Dermatology [address] [facility] [place] [phone] Lorin Youssef MD Seborrheic keratosis (Primary Dx); Seborrheic dermatitis; Multiple benign nevi; Rosacea, unspecified from Last 3 Months Immunizations Immunization Administration Dates Next Due PPD TEST, UNSPECIFIED 05/24/2010 Surgical History Surgery Date Site/Laterality Comments CHOLECYSTECTOMY 12/01/2015 - 11/30/2016 Medical History Medical History Date Comments HPV (human papilloma virus) infection 2017 Anxiety 2020 Meningitis Viral meningitis 2005 & 2009 Family History Medical History Relation Name Comments Cancer Father Prostate spindel cell cancer Father Prostate Bladder Cancer Mother Kidney failure Cancer Mother Kidney failure Kidney disease Mother Kidney failure Breast cancer Neg Hx Colon cancer Neg Hx Deep vein thrombosis Neg Hx Learning disabilities Neg Hx Mental retardation Neg Hx Miscarriages / Stillbirths Neg Hx Ovarian cancer Neg Hx Thrombophilia Neg Hx Relation Name Status Comments Father Prostate Alive Mother Kidney failure Social History Tobacco Use Types Packs/Day Years [...] Answer Date Recorded Getting School Help Needed Denies 01/27 Comments No Sex and Gender Information Value Date Recorded Sex Assigned at Not on file Legal Sex Female 11:13 AM 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 Gender Identity Not on file Sexual Orientation Not on file 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 Not on file Not on file Not [...] Sign Reading Time Taken Comments Blood Pressure 138/84 08/15/2025 10:49 AM CDT Pulse 110 08/15/2025 10:49 AM CDT Temperature 36.2 C (97.1 F) 08/15/2025 10:49 AM CDT Respiratory Rate 20 08/15/2025 10:49 AM CDT Oxygen Saturation 98% 08/15/2025 10:49 AM CDT Inhaled Oxygen Concentration - - Weight 72.6 kg (160 lb) 08/23/2025 10:05 AM CDT Height 170.2 cm (5' 7) 08/23/2025 10:05 AM CDT Body Mass Index 25.06 08/23/2025 10:05 AM CDT Plan of Treatment Health Maintenance Due Date Last Done Comments Depression Screening 1981 DTaP/Tdap/Td Vaccine (1 - Tdap) 1992 Varicella Vaccines (1 of 2 - 13+ 2-dose series) 1994 Hepatitis B Screening 1999 HPV Vaccines (1 - 3-dose SCDM series) 2008 Cervical Cancer Screening 08/08/20242022, 08/08/2023, 08/07/2022 Influenza Vaccine (#1) 2025 Regular Well Visit/Exam 18-64 08/13/2025 08/13/2024, 08/08/2023, 08/07/2022 Breast Cancer Screening-Mammogram 08/23/2026 08/23/2025, 08/13/2024, 07/28/2023, Additional history exists Hepatitis C Screening Completed 05/28/2017 Pneumococcal vaccine <65 Aged Out No longer eligible based on patient's age to complete this topic Procedures Procedure Name Priority Date/Time Associated Diagnosis Comments SCREENING MAMMOGRAM BILATERAL W ANJEL Schedule Routine, Read Routine (OP Routine) 08/23/2025 10:05 AM CDT Screening mammogram, encounter for PAP AND HIGH RISK HPV, REFLEX TO GENOTYPING Routine 08/08/2023 10:33 AM CDT Encounter for well woman exam with routine gynecological exam Hx of abnormal cervical Pap smear HEPATITIS C ANTIBODY Routine 05/28/2017 2:04 PM CDT Encounter for screening from Last 3 Months or Most Recently Relevant to Health Maintenance Results * Screening Mammogram Bilateral W Anjel (08/23/2025 10:05 AM CDT) Anatomical Region Laterality Modality Breast Bilateral Mammography Impressions 08/23/2025 1:28 PM CDT Bilateral No evidence of malignancy in either breast. OVERALL BI-RADS FINAL ASSESSMENT: 2 - Benign RECOMMENDATION: Recommend bilateral annual screening mammography. Narrative 08/23/2025 1:28 PM CDT EXAMINATION: Screening Mammogram Bilateral W Anjel: 08/23/2025 COMPARISON: Relevant prior studies available at the time of interpretation were reviewed, including the most recent mammogram on: 08/13/2024. TECHNIQUE: Mammography was performed with 2D and 3D digital breast tomosynthesis (DBT) images. CAD was utilized. BREAST PARENCHYMAL COMPOSITION: There are scattered areas of fibroglandular density. FINDINGS: Bilateral There is no suspicious mass, calcification, or architectural distortion in either breast. us Self Screening Mammogram IMG MAMMO PROCEDURES Fi nal Result * Pap and High Risk HPV and Genotyping (Cytology Component) (08/08/2023 10:33 AM CDT) Thin prep (Pap test) 08/08/2023 10:33 AM CDT 08/12/2023 10:50 AM CDT Narrative PATHOLOGY [facility] - 08/18/2023 1:01 PM CDT EPIC results best viewed via link to PDF [address] [address] Tele: Mara Mckeon MD - Print Room Worker CYTOLOGY REPORT Note to Patients: This report [...] the details. Patient Name: RONDA NUNEZ Address: [address] [place] [address]- Gender: F : 1980 (Age: 43) Service: Location: [facility] #: [id number] Patient Type: [facility] SPECIMEN Taken: 08/08/2023 Reported: 08/18/2023 Physician(s): Jenny [...] LAB CYTOLOGY ORDERABLE S Final Result PATHOLOGY [facility] Laboratory Receiving [address] [place] [address] * Hepatitis C antibody (05/28/2017 2:04 PM CDT) Hep C Ab <0.1 0.0 - 0.9 s/co ratio [facility] - 01 Comment: Negative: < 0.8 Indeterminate: 0.8 - 0.9 Positive: > 0.9 The CDC recommends that a positive HCV antibody result be followed up with a HCV Nucleic Acid Amplification test (650742). Blood specimen (specimen) 05/28/2017 2:04 PM CDT 05/28/2017 Narrative [facility] - 05/30/2017 2:06 AM CDT Performed at: - [facility] [id number] Travel Guide: Catalino Fleming PhD, Phone: [phone] Jenny Garces MD LAB MICROBIOLOGY - GEN ERAL ORDERABLES Final Result [facility] - 01 from Last 3 Months or Most Recently Relevant to Health Maintenance Insurance [facility] Care Teams Plate Grainer Relationship Specialty Start Date End Date Wilfredo Grier DO [address] [place] [address] PCP - General Family Medicine 07/19/24
--- OUTSIDE RECORDS SUMMARY | 2025-09-16 10:35 | XMS_ITS | Encounter Summary ---
Author Organization [facility] Address [address] [place] [address] Care Team Providers Care Oracle Analyst Name Role Phone Ria Garnica MD Primary Care Pro vider Encounter Details Date Type Department Care Team (Late st Contact Info) Description 05/25/2008 Outpatient Historical HIS IMG-LAB [facility] Abiodun Owen MD [address] 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
--- OUTSIDE RECORDS SUMMARY | 2025-09-16 10:35 | XMS_ITS | Clinical Summary ---
Author Organization [facility] Address [address] [place] [address] Care Team Providers Care Efficiency Miner Name Role Phone Shady Solis MD Primary Care Provider [phone] Social History Tobacco Use Types Packs/Day Years [...] of 3 - 19+ 3-dose series) 2000 HPV Vaccines (1 - 3-dose SCD M series) 2008 Cervical Cancer Screening Pa p with HPV Testing (Age 30 to 64) Every 5 Years 2011 Cervical Cancer Screening with HPV 2011 Mammogram Screening 2021 COVID-19 Vaccine (2023-2 5 season) 2025 Influenza Adult (#1) 2025 Meningococcal B Vaccine Aged Out No l [...] patient's age to complete this topic Insurance [facility] MEDICAID C/O PROVIDER [employer] [id number] Care Teams Efficiency Miner Relationship Specialty Start Date End Date Shady Solis MD [address] [place] [address] PCP - General INTERNAL MEDICINE 05/09/20
== END 2025-09-16 10:00 | disposition home or self-care (01) ==
PROVIDERS: PCP Family Medicine; Visit Provider Family Medicine
DX: L50.9 Urticaria, unspecified (principal)
CPT/HCPCS: 82785; 86003; 86008